=== PATIENT | female | born 1945 | race Caucasian/White ===

== ENCOUNTER 2018-10-20 07:18 | Outpatient (CLI) | payer MEDICARE, OTHER, SELFPAY ==
[2018-10-20] VITALS (8 sets, daily range): BP systolic 116–161; BP diastolic 54–85; PULSE 76–83; RESP 16; TEMP 36.2; O2SAT 96–100
--- NOTE | 2018-10-20 07:21 | DI.RAD.S_ITS ---
PROCEDURE: PAIN L/S TRANSFORAMINAL INJECT INDICATIONS: RADICULOPATHY FINDINGS: Fluoroscopic spot filming was performed to verify placement of spinal needles at the L5-S1 right sided facet region level, as labeled on the films. Appropriate location(s) of the needle tip(s) was confirmed by injection of iodinated contrast. IMPRESSION: Normal needle tip localization for right L5-S1 perineural transforaminal steroid injection. Dictated by: Pee Corbin M.D. on 10/20/2018 at 10:00 Approved by: Pee Corbin M.D. on 10/20/2018 at 10:01
[2018-10-20] MEDS: MIDAZOLAM 5 MG/5 ML VIAL IV (08:27)
[2018-10-20] MEDS: IOPAMIDOL 15 ML VIAL 3 ML INJ (08:35)
[2018-10-20] MEDS: methylPREDNISolone acetate 80 MG/ML VIAL INJ (08:35)
[2018-10-20] MEDS: DEXAMETHASONE 10 MG/ML VIAL 20 MG INJ (08:35)
[2018-10-20] MEDS: BUPIVACAINE 0.25% (PF) VIAL 2 ML INJ (08:35)
--- NOTE | 2018-10-20 08:38 | PC.NURSE ---
assisting pt off table and transporting to post proc area in stable condition
--- NOTE | 2018-10-20 08:45 | PM.PROC.1 ---
Procedures Date/Time Date of procedure: 10/20/18 Time of procedure: 08:47 General Procedure description: PREOP DIAGNOSIS 1. FORMAINAL STENOSIS WITH LE SYMPTOMS, POST OP DIAGNOSIS 1. FORMAINAL STENOSIS WITH LE SYMPTOMS, PROCEDURES 1.FLUOROSCOPICALLY GUIDED CONTRAST CONTROLLED TRANSFORAMINAL EPIDURAL STEROID INJECTION - RIGHT L5/S1 TFESI PHYSICIAN: Jian Moy DO INDICATIONS: Constance is referred by for treatment of Foraminal Stenosis with right LE Symptoms FINDINGS Foraminal Nerve Root Compression secondary to disc disease and facet hypertrophy DESCRIPTION OF PROCEDURE Following denial of allergy and review of potential side effects and complications, including, but not necessarily limited to, infection, allergic reaction, local tissue breakdown, stroke, temporary or permanent nerve injury, paralysis, and possible , the patient indicated that the patient understood and agreed to proceed. An informed consent document was signed by the patient, witnessed by a nurse, and placed in the patient's chart. Additionally, other treatment options including medications, modalities, and physical therapy were reviewed with the patient. After review of previous anaesthesic history and IV conscious sedation the patient was deemed safe to proceed with todays procedure with IV conscious sedation as ASA class II designation. Safety time-out was performed to confirm patient ID, procedure to be performed and site of procedure. IV sedation was accomplished with a combination 4mg of Versed was administered by the RN after DO order, titrated to patient comfort during the course of the procedure while the patient remained responsive to all verbal commands In the prone position following sterile prep and drape of the lumbar region, the right L5/S1 posterior neuroforamen was identified fluoroscopically. The skin was anesthetized via a 25-gauge 1.5-inch needle with 1% lidocaine solution. At this point, a 25-gauge 3.5-inch spinal needle was atraumatically introduced and advanced under fluoroscopic guidance through the posterior right L5/S1 neuroforamen to approximately the anterior aspect of the canal. Depth was confirmed on lateral view. Following negative aspiration, injection of approximately 1.5 cc of Isovue 200 under live fluoroscopy in the AP view confirmed excellent flow along the nerve root, into the epidural space without vascular or intrathecal uptake observed Radiological data, including multiple fluoroscopic views of the lumbosacral spine, reveal a spinal needle at the right L5/S1 posterior neuroforamen. Subsequent views show flow of contrast material flowing superiorly and inferiorly along the nerve root confirming epidural flow. Subsequently, a test dose of 1.5 cc of 1% lidocaine solution was administered and patient was observed for two minutes for signs or symptoms of complications, including abdominal pain, shortness of breath, bilateral upper or lower extremity weakness, nausea and vomiting, prior to steroid injection. At this point, a total of 3 cc or 20 mg of dexamethasone and 80mg Depo Medrol was injected without incident. The procedure tolerated the procedure well without signs or symptoms of complications prior to transfer to the recovery area continued monitoring without incident. The patient was then transferred to the recovery area where they were observed for an appropriate time after the injection. The patient reported a VAS score of 7 prior to the procedure and a post-procedure VAS of 0. Total Fluoroscopy Time: 20.9 seconds Total Conscious Sedation Time: 24min POST OP INSTRUCTIONS The patient was provided a Pain Log to continue to record their response to the target-specific procedure prior to follow-up visit with their referring physician. Additionally, specific post-injection care instructions and a contact number to our office were provided if concerns arise regarding possible complications associated with the procedure are suspected. Jian Moy DO Complications: none
--- NOTE | 2018-10-20 08:50 | PC.NURSE ---
mario w/c post procedure , is alert and able to transfer from w/c to chair with standby assist, and resuming monitoring from thai zuniga.
--- NOTE | 2018-10-20 08:54 | PC.NURSE ---
alert and awake, tolerating drinking water and eating cookies.
--- NOTE | 2018-10-20 09:05 | PC.NURSE ---
left leg slightly floppy, while sitting abl to extend and flex, unsteady when standing.
--- NOTE | 2018-10-20 09:40 | PC.NURSE ---
prescriptions faxed to [facility], [place]. valium and tramadol.
== END 2018-10-20 09:22 | disposition home or self-care (01) ==
LOC: RAD 07:20
PROVIDERS: Family Provider Family Medicine; PCP Family Medicine; Visit Provider Physical Medicine & Rehabilitation
DX: M48.061 Spinal stenosis, lumbar region without neurogenic claudication (principal); M48.07 Spinal stenosis, lumbosacral region; M51.16 Intervertebral disc disorders with radiculopathy, lumbar region; M51.17 Intervertebral disc disorders with radiculopathy, lumbosacral region; Z96.643 Presence of artificial hip joint, bilateral
CPT/HCPCS: 64483; 99152; J1040; J1100; J2250

== ENCOUNTER → 2018-10-22 16:18 | Outpatient (CLI) | payer MEDICARE, OTHER, SELFPAY ==
--- NOTE | 2018-10-22 16:20 | DI.RAD.S_ITS ---
PROCEDURE: XR HIP W PEL IF DONE RT 2V INDICATIONS: Low back/Hip pain TECHNIQUE: AP pelvis with lateral view(s) of the right hip(s). COMPARISON: None. FINDINGS: Bones: No fractures or dislocations. Pelvic ring appears intact. No suspicious bony lesions. Bilateral hip arthroplasties are present. Hardware appears intact without gross evidence of loosening or fracture. Degenerative narrowing is present at the pubic symphysis. Soft tissues: The visualized bowel gas pattern is normal. Calcifications are present within the pelvis most suggestive of uterine fibroids. IMPRESSION: Stable appearance of bilateral hip arthroplasties as above. Dictated by: Lizett Ghotra M.D. on 10/22/2018 at 16:46 Approved by: Lizett Ghotra M.D. on 10/22/2018 at 16:47
--- NOTE | 2018-10-22 16:20 | DI.RAD.S_ITS ---
PROCEDURE: XR LUMBAR SPINE MIN 4V INDICATIONS: Low back/Hip pain TECHNIQUE: 4 views of the lumbar spine were acquired. COMPARISON: [facility], SPINE LUMB MIN 4VW, 02/24/2017, 13:15. FINDINGS: Bones: 5 nonrib-bearing vertebrae are present. There is trace retrolisthesis of L1 on L2-L2 on L3. There is severe disc space narrowing throughout the lumbar spine most severe from L3-4 through L5-S1. Severe foraminal narrowing is present L4-5 and L5-S1, moderate L3-4. Multilevel anterior osteophytes are present most notable at T12-L1, L2 and L4. Oblique views are markedly limited. Bilateral hip arthroplasties are noted. No vertebral body compression fractures. No suspicious bony lesions. Soft tissues: Overlying bowel gas pattern is normal. No suspicious soft tissue calcifications. IMPRESSION: Multilevel degenerative changes most severe at L4-5 and L5-S1 as above. There has been minimal interval progression compared to prior exam. Dictated by: Lizett Ghotra M.D. on 10/22/2018 at 16:41 Approved by: Lizett Ghotra M.D. on 10/22/2018 at 16:43
== END ==
PROVIDERS: Family Provider Family Medicine; PCP Family Medicine; Visit Provider Physical Medicine & Rehabilitation
DX: M54.5 Low back pain (principal); M25.551 Pain in right hip; M47.816 Spondylosis without myelopathy or radiculopathy, lumbar region; M47.817 Spondylosis without myelopathy or radiculopathy, lumbosacral region; Z96.643 Presence of artificial hip joint, bilateral
CPT/HCPCS: 20552; 72110; 73502; 96372; 99213; J1885; J3301

== ENCOUNTER → 2018-11-02 06:02 | Outpatient (CLI) | payer MEDICARE, OTHER, SELFPAY ==
--- NOTE | 2018-11-02 06:05 | DI.MRI.S_ITS ---
PROCEDURE: MR LUMBAR SPINE WO CON INDICATIONS: Foraminal Stenosis with Right LE radiculopathy TECHNIQUE: Noncontrast sagittal T1 spin echo and T2 fast echo, sagittal STIR, axial T1 and T2 fast spin echo through the lumbar spine. In cases with scoliosis, additional coronal T2 fast spin echo may be performed. COMPARISON: [facility], MR, L-SPINE W&WO CONTRAST, 06/16/2012, 14:56. [facility], CR, XR LUMBAR SPINE MIN 4V, 10/22/2018, 16:23. [facility], MR, L-SPINE WITHOUT CONTRAST, 02/07/2016, 10:04. FINDINGS: Image quality: Excellent. Alignment and Curvature: There is mild levoscoliosis centered at L2-3 level. No spondylolisthesis. Bone Marrow: Marrow is of normal overall signal. No acute vertebral body compression fractures. Vertebral body heights are preserved. Decreased intervertebral disc space and degenerative endplate changes are noted throughout lumbar spine, progressed since the 2016 study. Spinal Cord: Conus medullaris terminates the L1 level. Visualized cord demonstrates normal signal and size. Paraspinous Soft Tissues: No paravertebral masses. L1-L2: Diffuse disc bulge and right lateral disc herniation with bilateral facet arthrosis is seen. Mild central canal stenosis and right-sided neural foramina narrowing is noted. Bulging disc likely contacting right L1 nerve root at this level. L2-L3: Broad-based disc bulge and right lateral disc herniation with bilateral facet arthrosis is seen causing mild central canal stenosis and right-sided neural foramina narrowing. Bulging disc likely contacting right L2 nerve root. L3-L4: Broad-based disc bulge and bilateral facet arthrosis is seen causing mild central canal stenosis and right worse than left bilateral neuroforaminal narrowing. Bulging disc likely contacting right L3 nerve root. L4-L5: Broad-based disc bulge and bilateral facet arthrosis is seen. There is evidence of prior right-sided laminectomy at this level with post surgical changes. No significant central canal stenosis. Mild bilateral neuroforaminal narrowing is seen. L5-S1: Diffuse disc bulge and bilateral facet arthrosis is seen with no significant central canal stenosis. Mild/moderate bilateral neuroforaminal narrowing is seen. IMPRESSION: 1. Prior laminectomy at L4-5 level. Mild levoscoliosis centered at L2-3 level. No acute compression fracture or traumatic spondylolisthesis. No marrow edema. 2. Degenerative disc bulge and bilateral facet arthrosis throughout lumbar spine causing mild central canal stenosis and right worse than left neuroforaminal narrowing as described in detail above. Finding is more prominent at L2-3 and L3-4 levels. Dictated by: Cornelius Esqueda M.D. on 11/02/2018 at 8:21 Approved by: Cornelius Esqueda M.D. on 11/02/2018 at 8:29
== END ==
PROVIDERS: Family Provider Family Medicine; PCP Family Medicine; Visit Provider Physical Medicine & Rehabilitation
DX: M51.16 Intervertebral disc disorders with radiculopathy, lumbar region (principal); M51.17 Intervertebral disc disorders with radiculopathy, lumbosacral region; M48.061 Spinal stenosis, lumbar region without neurogenic claudication; M48.07 Spinal stenosis, lumbosacral region; M47.27 Other spondylosis with radiculopathy, lumbosacral region; M47.26 Other spondylosis with radiculopathy, lumbar region; M41.86 Other forms of scoliosis, lumbar region; M99.83 Other biomechanical lesions of lumbar region
CPT/HCPCS: 72148

== ENCOUNTER → 2018-11-04 16:42 | Outpatient (CLI) | payer MEDICARE, OTHER, SELFPAY ==
--- NOTE | 2018-11-04 16:43 | DI.MRI.S_ITS ---
PROCEDURE: MR PELVIS WO CON INDICATIONS: RIGHT LEG PAIN TECHNIQUE: Noncontrast axial and coronal T1 spin echo and STIR through the lumbosacral plexus region. Optional contrast may be given, followed by axial and coronal T1 spin echo with fat saturation through the sacral plexus. COMPARISON: [facility], CR, SPINE LUMB MIN 4VW, 02/24/2017, 13:15. [facility], MR, L-SPINE WITHOUT CONTRAST, 02/07/2016, 10:04. [facility], MR, MR LUMBAR SPINE WO CON, 11/02/2018, 6:34. [facility], CR, XR HIP W PEL IF DONE RT 2V, 10/22/2018, 16:23. [facility], CR, XR LUMBAR SPINE MIN 4V, 10/22/2018, 16:23. FINDINGS: Image quality: Only mildly degraded by metal artifact from bilateral hip arthroplasties. Lumbosacral plexus: Superior to the piriformis muscles, the pre-plexal structures appear normal, including the lumbosacral trunk and S1 root. Just anterior to the piriformis muscles, the sacral plexus proper demonstrates normal morphology (lumbosacral trunk, S1 to S3 nerve roots). Inferior to the piriformis muscles, the sciatic nerves appear normal. Note is made of a small degree of edema within the iliac fossa bilaterally, scanned on the right and mild on the left. This does not appear associated with adjacent infection or neoplasm. Soft tissues: The piriformis muscles appear symmetric in size. No presacral masses. Rectum appears normal in caliber and wall thickness. No pathologic free pelvic fluid. No visualized adenopathy by size criteria. There is edema within the soft tissues adjacent to the right sacroiliac joint, and more prominent adjacent to the superior and inferior right obturator ring. Quality of visualization is somewhat limited by the presence of bilateral hip arthroplasties. Bones: Marrow is abnormal within the right sacral ala adjacent to the sacroiliac joint, with a vertically oriented pattern and morphology consistent with right sacral insufficiency fracture. This is the origin of the adjacent mild soft tissue edema. Additionally, at the middle third of the inferior obturator ring on the right and medially at the superior obturator ring on the right there are nondisplaced fractures, with associated relatively prominent soft tissue edema tracking into the abductor muscle group inferiorly, and immediately adjacent. IMPRESSION: 1. No underlying infection or neoplasm is found. 2. There is a vertically oriented nondisplaced right sacral insufficiency fracture with associated marrow edema and mild adjacent soft tissue swelling. No hematoma is found. 3. There are nondisplaced superior and inferior right obturator ring fractures with edema tracking predominantly inferiorly and to the abductor muscle group but also into the musculature immediately adjacent. No hematoma associated. 4. A mild degree of iliopsoas muscle edema is present greater on the left than the right, presumably related to muscular strain. Please correlate for recent trauma given the constellation of findings above. Dictated by: Pee Corbin M.D. on 11/05/2018 at 8:43 Approved by: Pee Corbin M.D. on 11/05/2018 at 8:59
== END ==
PROVIDERS: PCP Family Medicine; Visit Provider Physical Medicine & Rehabilitation
DX: M84.48XA Pathological fracture, other site, initial encounter for fracture (principal); M84.454A Pathological fracture, pelvis, initial encounter for fracture; M79.604 Pain in right leg; M54.17 Radiculopathy, lumbosacral region; M99.83 Other biomechanical lesions of lumbar region; M51.26 Other intervertebral disc displacement, lumbar region; Z96.643 Presence of artificial hip joint, bilateral
CPT/HCPCS: 72195; 99214

== ENCOUNTER 2019-05-05 07:58 | Outpatient (CLI) | payer MEDICARE, OTHER, SELFPAY ==
[2019-05-05] VITALS (8 sets, daily range): BP systolic 120–163; BP diastolic 63–96; PULSE 75–83; RESP 16; TEMP 36.6; O2SAT 96–100
--- NOTE | 2019-05-05 08:01 | DI.RAD.S_ITS ---
PROCEDURE: PAIN L INTERLAMINAR/CAUDAL INJ INDICATIONS: RADICULOPATHY FINDINGS: Fluoroscopic spot filming was performed to verify placement of spinal needles at the L5-S1 level(s), as labeled on the films. Appropriate location(s) of the needle tip(s) was confirmed by injection of iodinated contrast. IMPRESSION: Successful needle tip localization at L5-S1 or transplant or epidural steroid injection. Dictated by: Pee Corbin M.D. on 05/05/2019 at 10:07 Approved by: Pee Corbin M.D. on 05/05/2019 at 10:11
--- NOTE | 2019-05-05 08:52 | PM.PROC.1 ---
Procedures Date/Time Date of procedure: 05/05/19 Time of procedure: 09:21 General Procedure description: PROVIDER: Jian Moy DO Operative Note PREOP DIAGNOSIS 1. HNP WITH RADICULAR FEATURES, 2. MULTILEVEL CENTRAL STENOSIS, POST OP DIAGNOSIS 1. HNP WITH RADICULAR FEATURES, 2. MULTILEVEL CENTRAL STENOSIS, PROCEDURES 1. FLUORSCOPICALLY GUIDED CONTRAST CONTROLLED INTERLAMINAR EPIDURAL STEROID INJECTION - L5/S1 PHYSICIAN: Jian Moy DO INDICATIONS Constance is referred by Dr. Valero for treatment of Bilateral Foraminal Stenosis L>R LE symptoms. FINDINGS Multilevel Central Spinal Stenosis with Nerve Root Compression DESCRIPTION OF PROCEDURE Fluoroscopically guided, contrast-controlled L5/S1 translaminar epidural steroid injection. Following review of allergy and review of potential side effects and complications, including, but not necessarily limited to, infection, allergic reaction, local tissue breakdown, temporary as well as permanent nerve injury, paralysis, stroke and possible , the patient indicated that the patient understood and agreed to proceed. An informed consent document was signed by the patient, witnessed by a nurse, and placed in the patient's chart. Additionally, other treatment options including modalities, medications, and physical therapy were reviewed with the patient. After review of previous anaesthesic history and IV conscious sedation the patient was deemed safe to proceed with todays procedure with IV conscious sedation as ASA class II designation. Safety time-out was performed to confirm patient ID, procedure to be performed and site of procedure. IV sedation was accomplished with a combination of 2mg of Versed and 50mcg of Fentanyl administered by the RN after DO order, titrated to patient comfort during the course of the procedure while the patient remained responsive to all verbal commands. In the prone position, following sterile prep and drape of the lumbar region, the L5/S1 translaminar space was identified fluoroscopically. The skin was anesthetized via a 25-gauge, 1.5-inch needle with 1% lidocaine solution. At this point, a 22-gauge short bevel spinal needle was atraumatically introduced and advanced under fluoroscopic guidance into the region of the L5/S1 translaminar space. Depth was confirmed on lateral view. Radiological data, including multiple fluoroscopic views of the lumbar spine, reveal a spinal needle at the L5/S1 translaminar space. Lateral views then show placement of the needle in the epidural space. Subsequent views show contrast material flowing superiorly and inferiorly in the epidural space. No vascular or intrathecal uptake is observed. At this point, using loss of resistance technique with saline and air, the epidural space was entered. This was confirmed following negative aspiration with injection of approximately 1.5 cc of Isovue 200, showing excellent epidural flow without vascular or intrathecal uptake. At this point, 1 cc of 1% lidocaine solution combined with 3cc or 20mg of dexamethasone and 50mcg of Fentanyl was injected without incident. The patent tolerated the procedure without signs of symptoms of complications prior to transfer to the recovery area for further monitoring. The patient was then transferred to the recovery area where they were observed for an appropriate period of time after the injection. The patient reported a VAS score of 6 prior to the procedure and a post-procedure VAS of 0. Total Fluoroscopy Time: 11.8 seconds Total Conscious Sedation Time: 24min POST OP INSTRUCTIONS The patient was provided a Pain Log to continue to record their response to the target-specific procedure prior to follow-up visit with their referring physician. Additionally, specific post-injection care instructions and a contact number to our office were provided if concerns arise regarding possible complications associated with the procedure are suspected. Jian Moy DO
[2019-05-05] MEDS: fentaNYL 100 MCG/2 ML INJ 50 MCG IV (09:09)
[2019-05-05] MEDS: MIDAZOLAM 5 MG/5 ML VIAL IV (09:09)
[2019-05-05] MEDS: BUPIVACAINE 0.25% (PF) VIAL 2 ML INJ (09:12)
[2019-05-05] MEDS: BETAMETHASONE 30 MG/5 ML MDV 12 MG INJ (09:12)
[2019-05-05] MEDS: IOPAMIDOL 15 ML VIAL 3 ML INJ (09:12)
[2019-05-05] MEDS: DEXAMETHASONE 10 MG/ML VIAL 20 MG INJ (09:12)
--- NOTE | 2019-05-05 09:19 | PC.NURSE ---
Pt tolerated procedure well. Pt able to get off table with standby assist. Transferred pt via wheelchair to pre procedure room for continued monitoring with Amanda YA.
--- NOTE | 2019-05-05 09:29 | PC.NURSE ---
ACCEPTED CARE OF PT IN POST PROC AREA IN STABLE CONDITION
== END 2019-05-05 09:44 | disposition home or self-care (01) ==
PROVIDERS: Family Provider Family Medicine; PCP Family Medicine; Visit Provider Physical Medicine & Rehabilitation
DX: M51.26 Other intervertebral disc displacement, lumbar region (principal); M99.83 Other biomechanical lesions of lumbar region; M54.17 Radiculopathy, lumbosacral region
CPT/HCPCS: 62323; 99152; J0702; J1100; J2250; J3010

== ENCOUNTER 2019-07-05 09:27 | Outpatient (CLI) | payer MEDICARE, OTHER, SELFPAY ==
[2019-07-05] VITALS (8 sets, daily range): BP systolic 122–148; BP diastolic 52–82; PULSE 74–82; RESP 16–18; TEMP 36.6; O2SAT 95–99
--- NOTE | 2019-07-05 09:30 | DI.RAD.S_ITS ---
PROCEDURE: PAIN L/S TRANSFORAMINAL INJECT INDICATIONS: LUMBAR RIDICULOPATHY FINDINGS: Fluoroscopic spot filming was performed to verify placement of spinal needles at the L5-S1 level(s), as labeled on the films. Appropriate location(s) of the needle tip(s) was confirmed by injection of iodinated contrast. Dictated by: Roosevelt Whitaker M.D. on 07/05/2019 at 11:24 Approved by: Roosevelt Whitaker M.D. on 07/05/2019 at 11:26
[2019-07-05] MEDS: MIDAZOLAM 5 MG/5 ML VIAL IV (10:39)
[2019-07-05] MEDS: fentaNYL 100 MCG/2 ML INJ 50 MCG IV (10:40)
[2019-07-05] MEDS: BUPIVACAINE 0.25% (PF) VIAL 2 ML INJ (10:44)
[2019-07-05] MEDS: IOPAMIDOL 15 ML VIAL 3 ML INJ (10:45)
[2019-07-05] MEDS: BETAMETHASONE 30 MG/5 ML MDV 6 MG INJ (10:45)
[2019-07-05] MEDS: DEXAMETHASONE 10 MG/ML VIAL 20 MG INJ (10:45)
[2019-07-05] MEDS: LIDOCAINE 1% 20 ML 5 ML INJ (10:46)
--- NOTE | 2019-07-05 10:53 | PC.NURSE ---
ASSISTING PT OFF TABLE AND TRANSPORTING TO POST PROC AREA IN STABLE CONDITION
--- NOTE | 2019-07-05 11:02 | PM.PROC.1 ---
Procedures Date/Time Date of procedure: 07/05/19 Time of procedure: 11:02 General Procedure description: PREOP DIAGNOSIS 1. FORMAINAL STENOSIS WITH LE SYMPTOMS, POST OP DIAGNOSIS 1. FORMAINAL STENOSIS WITH LE SYMPTOMS, PROCEDURES 1.FLUOROSCOPICALLY GUIDED CONTRAST CONTROLLED TRANSFORAMINAL EPIDURAL STEROID INJECTION - RIGHT L5/S1 TFESI PHYSICIAN: Jian Moy DO INDICATIONS: Constance is referred by for treatment of Foraminal Stenosis with right LE Symptoms FINDINGS Foraminal Nerve Root Compression secondary to disc disease and facet hypertrophy DESCRIPTION OF PROCEDURE Following review of allergy and review of potential side effects and complications, including, but not necessarily limited to, infection, allergic reaction, local tissue breakdown, stroke, temporary or permanent nerve injury, paralysis, and possible , the patient indicated that the patient understood and agreed to proceed. An informed consent document was signed by the patient, witnessed by a nurse, and placed in the patient's chart. Additionally, other treatment options including medications, modalities, and physical therapy were reviewed with the patient. After review of previous anaesthesic history and IV conscious sedation the patient was deemed safe to proceed with todays procedure with IV conscious sedation as ASA class II designation. Safety time-out was performed to confirm patient ID, procedure to be performed and site of procedure. IV sedation was accomplished with a combination of 2mg of Versed and 50mcg of Fentanyl was administered by the RN after DO order, titrated to patient comfort during the course of the procedure while the patient remained responsive to all verbal commands In the prone position following sterile prep and drape of the lumbar region, the right L5/S1 posterior neuroforamen was identified fluoroscopically. The skin was anesthetized via a 25-gauge 1.5-inch needle with 1% lidocaine solution. At this point, a 25-gauge 5-inch spinal needle was atraumatically introduced and advanced under fluoroscopic guidance through the posterior right L5/S1 neuroforamen to approximately the anterior aspect of the canal. Depth was confirmed on lateral view. Following negative aspiration, injection of approximately 1.5 cc of Isovue 200 under live fluoroscopy in the AP view confirmed excellent flow along the nerve root, into the epidural space without vascular or intrathecal uptake observed Radiological data, including multiple fluoroscopic views of the lumbosacral spine, reveal a spinal needle at the right L5/S1 posterior neuroforamen. Subsequent views show flow of contrast material flowing superiorly and inferiorly along the nerve root confirming epidural flow. Subsequently, a test dose of 1.5 cc of 1% lidocaine solution was administered and patient was observed for two minutes for signs or symptoms of complications, including abdominal pain, shortness of breath, bilateral upper or lower extremity weakness, nausea and vomiting, prior to steroid injection. At this point, a total of 3cc or 20mg of dexamethasone and 6mg betamethasone was injected without incident. The procedure tolerated the procedure well without signs or symptoms of complications prior to transfer to the recovery area continued monitoring without incident. The patient was then transferred to the recovery area where they were observed for an appropriate time after the injection. The patient reported a VAS score of 7 prior to the procedure and a post-procedure VAS of 0. Total Fluoroscopy Time: 20.9 seconds Total Conscious Sedation Time: 24min POST OP INSTRUCTIONS The patient was provided a Pain Log to continue to record their response to the target-specific procedure prior to follow-up visit with their referring physician. Additionally, specific post-injection care instructions and a contact number to our office were provided if concerns arise regarding possible complications associated with the procedure are suspected. Jian Moy DO Complications: none
--- NOTE | 2019-07-05 11:28 | PC.NURSE ---
Post procedure note: Patient arrive for monitoring at 1100. Awake but slightly drowsy. VSS, O2 sat WNL on RA. No compaints of pain. 0/10 scale. Mild weakness to right leg when transfered from w/c to recliner. Denies any unsusual numbness or tingling. tolerating po without nausea. Discharge instructions reviewed with good understanding of patient and spouse. discharged to home wheelchair to car at 1125.
== END 2019-07-05 11:25 ==
LOC: RAD 09:29
PROVIDERS: Family Provider Family Medicine; PCP Family Medicine; Visit Provider Physical Medicine & Rehabilitation
DX: M48.07 Spinal stenosis, lumbosacral region (principal); M51.17 Intervertebral disc disorders with radiculopathy, lumbosacral region
CPT/HCPCS: 64483; 99152; J0702; J1100; J2250; J3010

== ENCOUNTER → 2020-04-21 10:14 | Outpatient (CLI) | payer MEDICARE, OTHER, SELFPAY ==
[2020-04-22 17:07] LABS: COVID19 Sendout Not Detected (Not Detect)
== END ==
PROVIDERS: Family Provider Family Medicine; PCP Family Medicine; Visit Provider Physician Assistant
DX: Z11.59 Encounter for screening for other viral diseases (principal)
CPT/HCPCS: 87635

== ENCOUNTER 2020-04-24 11:18 | Outpatient (CLI) | payer MEDICARE, OTHER, SELFPAY ==
[2020-04-24] VITALS (7 sets, daily range): BP systolic 137–179; BP diastolic 77–99; PULSE 77–86; RESP 14–17; TEMP 36.4; O2SAT 97–100
--- NOTE | 2020-04-24 11:19 | DI.RAD.S_ITS ---
PROCEDURE: PAIN L/S TRANSFORAMINAL INJECT INDICATIONS: SPONDYLOSIS COMPARISON: [facility], , PAIN L/S TRANSFORAMINAL INJECT, 07/05/2019, 10:41. FINDINGS: Fluoroscopic spot filming was performed to verify placement of spinal needles at the right L4-L5 neural foramen level(s), as labeled on the films. Appropriate location(s) of the needle tip(s) was confirmed by injection of iodinated contrast. IMPRESSION: Access needle at the right L4-L5 neural foramen. Dictated by: Opal Luna MD, PhD on 04/24/2020 at 13:40 Approved by: Opal Luna MD, PhD on 04/24/2020 at 13:41
--- NOTE | 2020-04-24 11:42 | PC.NURSE ---
Patient is A&O able to make needs known. Green pain log reviewed with post injection instructions. Has no questions or concerns at this time.
[2020-04-24] MEDS: MIDAZOLAM 5 MG/5 ML VIAL IV (11:55)
[2020-04-24] MEDS: fentaNYL 100 MCG/2 ML INJ 50 MCG IV (11:55)
[2020-04-24] MEDS: DEXAMETHASONE 10 MG/ML VIAL 20 MG INJ (12:04)
[2020-04-24] MEDS: BETAMETHASONE 30 MG/5 ML MDV 6 MG INJ (12:05)
[2020-04-24] MEDS: BUPIVACAINE 0.25% (PF) VIAL 2 ML INJ (12:05)
[2020-04-24] MEDS: IOPAMIDOL 15 ML VIAL 3 ML INJ (12:05)
--- NOTE | 2020-04-24 12:14 | P.PCN_ITS ---
Date/Time/Diagnoses Date of procedure: 04/24/20 Time of procedure: 12:14 Pre-procedure diagnosis: 1. FORAMINAL STENOSIS WITH LE SYMPTOMS Post-procedure diagnosis: same Procedure Notes Procedure: 1. FLUOROSCOPICALLY GUIDED CONTRAST CONTROLLED TRANSFORAMINAL EPIDURAL STEROID INJECTION - RIGHT L4/5 TFESI Indications: Constance is referred by for treatment of Foraminal Stenosis with Right LE Symptoms Physician: Jian Myo Total Fluoroscopy time (seconds): 14 Total sedation minutes: 15 Complications: none Procedure in detail & Post-procedure care: FINDINGS Foraminal Nerve Root Compression secondary to disc disease and facet hypertrophy DESCRIPTION OF PROCEDURE Following review of allergy and review of potential side effects and complications, including, but not necessarily limited to, infection, allergic reaction, local tissue breakdown, stroke, temporary or permanent nerve injury, paralysis, and possible , the patient indicated that the patient understood and agreed to proceed. An informed consent document was signed by the patient, witnessed by a nurse, and placed in the patient's chart. Additionally, other treatment options including medications, modalities, and physical therapy were reviewed with the patient. After review of previous anaesthesic history and IV conscious sedation the patient was deemed safe to proceed with today?s procedure with IV conscious sedation as ASA class II designation. Safety time-out was performed to confirm patient ID, procedure to be performed and site of procedure. IV sedation was accomplished with a combination of 2mg of Versed and 50mcg of Fentanyl was administered by the RN after DO order, titrated to patient comfort during the course of the procedure while the patient remained responsive to all verbal commands In the prone position following sterile prep and drape of the lumbar region, the Right L4/5 posterior neuroforamen was identified fluoroscopically. The skin was anesthetized via a 25-gauge 1.5-inch needle with 1% lidocaine solution. At this point, a 22-gauge 5-inch spinal needle was atraumatically introduced and advanced under fluoroscopic guidance through the posterior Right L4/5 n euroforamen to approximately the anterior aspect of the canal. Depth was confirmed on lateral view. Following negative aspiration, injection of approximately 1.5 cc of Isovue 200 under live fluoroscopy in the AP view confirmed excellent flow along the nerve root, into the epidural space without vascular or intrathecal uptake observed Radiological data, including multiple fluoroscopic views of the lumbosacral spine, reveal a spinal needle at the right L4/5 posterior neuroforamen. Subsequent views show flow of contrast material flowing superiorly and inferiorly along the nerve root confirming epidural flow. Subsequently, a test dose of 1.5 cc of 1% lidocaine solution was administered and patient was observed for two minutes for signs or symptoms of complications, including abdominal pain, shortness of breath, bilateral upper or lower extremity weakness, nausea and vomiting, prior to steroid injection. At this point, a total of 3cc or 20mg of dexamethasone and 6mg of betamethasone was injected without incident. The procedure tolerated the procedure well without signs or symptoms of complications prior to transfer to the recovery area continued monitoring without incident. The patient was then transferred to the recovery area where they were observed for an appropriate time after the injection. The patient reported a VAS score of 7 prior to the procedure and a post- procedure VAS of 0. POST OP INSTRUCTIONS The patient was provided a Pain Log to continue to record their response to the target-specific procedure prior to follow-up visit with their referring physician. Additionally, specific post-injection care instructions and a contact number to our office were provided if concerns arise regarding possible complications associated with the procedure are suspected.
--- NOTE | 2020-04-24 16:08 | PC.NURSE ---
Tolerated procedure well. Sedation administered by BHAKTI Wynn. All other meds given by Dr Moy. Vitals stable during and immediately post procedure. Report given to BHAKTI Armstrong for post procedure recovery.
== END 2020-04-24 12:40 | disposition home or self-care (01) ==
LOC: RAD 11:19
PROVIDERS: Family Provider Family Medicine; PCP Family Medicine; Referring Provider Family Medicine; Visit Provider Physical Medicine & Rehabilitation
DX: M48.061 Spinal stenosis, lumbar region without neurogenic claudication (principal); M51.16 Intervertebral disc disorders with radiculopathy, lumbar region
CPT/HCPCS: 64483; 99152; J0702; J1100; J2250; J3010

== ENCOUNTER → 2020-11-08 16:42 | Outpatient (CLI) | payer MEDICARE, OTHER, SELFPAY ==
[2020-11-08] MEDS: COVID-19 VACC #1, MRNA(MOD) 100 MCG/0.5 ML VIAL IM (16:55)
== END ==
PROVIDERS: Family Provider Family Medicine; PCP Family Medicine; Visit Provider Internal Medicine
DX: Z23 Encounter for immunization (principal)
CPT/HCPCS: 0011A; 91301

== ENCOUNTER → 2020-12-07 08:47 | Outpatient (CLI) | payer MEDICARE, OTHER, SELFPAY ==
[2020-12-07] MEDS: COVID-19 VACC #2, MRNA(MOD) 100 MCG/0.5 ML VIAL IM (08:56)
== END ==
PROVIDERS: Family Provider Family Medicine; PCP Family Medicine; Visit Provider Internal Medicine
DX: Z23 Encounter for immunization (principal)
CPT/HCPCS: 0012A; 91301

== ENCOUNTER 2021-07-18 08:52 | Emergency (ER) | payer MEDICARE, OTHER, SELFPAY ==
[2021-07-18 09:00] VITALS: BP 176/84; PULSE 83; RESP 15; TEMP 36.9; O2SAT 99; BMI 33.5
--- NOTE | 2021-07-18 09:04 | DI.RAD.S_ITS ---
PROCEDURE: XR HIP W PEL IF DONE LT 2V INDICATIONS: left hip out possibly,hx hip replacement TECHNIQUE: AP pelvis with AP and lateral views of the left hip. COMPARISON: [facility], CR, XR HIP W PEL IF DONE RT 2V, 10/22/2018, 16:23. FINDINGS: Bones: A left total hip arthroplasty is present. The femoral head component appears normally aligned with the acetabular component. No signs of hardware loosening. No acute perihardware fracture is seen. A right total hip arthroplasty is also seen in stable position. Chronic healed fractures of the right superior and inferior pubic rami are noted. Degenerative changes are seen in the included spine. Soft tissues: The visualized bowel gas pattern is normal. Nonspecific calcifications are seen projecting over the pelvis. IMPRESSION: Left hip arthroplasty demonstrates expected alignment. No acute osseous abnormality. If clinical suspicion and/or symptoms persist, additional imaging with repeat plain films, or advanced imaging (e.g. CT, MRI) may be helpful for further assessment. Dictated by: Buck Sevilla M.D. on 07/18/2021 at 9:32 Approved by: Buck Sevilla M.D. on 07/18/2021 at 9:37
--- NOTE | 2021-07-18 09:43 | ED.EXTPRO ---
HPI - Extremity Problem General Chief complaint: Extremity Problem,Nontraumatic Stated complaint: Artificial hip pain, can't walk Time Seen by Provider: 07/18/21 09:06 Source: patient Mode of arrival: Wheelchair Limitations: no limitations History of Present Illness HPI Narrative: Patient is a 76-year-old female. Has had multiple joint replacements in the past to include both of her hips. Approximately 1 week ago she states she was sitting at a counter with a friend for several hours. When she stood up she had pain in her left hip. She had a difficult time walking or moving her left hip. She had no knee pain. No ankle pain. She did not fall. She has had back pain in the past and did not have any back pain at the time. She laid down on the couch in after several hours she felt a ?pop ?and then the pain went completely away. Afterwards she was able to walk around and had no discomfort for the past week until last evening started to have the pain in her left buttock once again. She states that she has difficult time sleeping last night. It hurts when she stands on the leg. No fevers. Again no falls. Has not tried anything for the symptoms prior to arrival. Related Data Previous Rx's Medication Instructions Recorded nortriptyline 25 mg capsule See Rx Instructions .ROUTE 05/02/21 .COMPLEX #60 cap cyclobenzaprine 10 mg tablet 10 mg PO TID PRN #10 tab 07/18/21 hydrocodone 5 mg-acetaminophen 325 1 tab PO Q6H PRN #14 tab 07/18/21 mg tablet Allergies Allergy/AdvReac Type Severity Reaction Status Date / Time No Known Drug Allergies Allergy Verified 07/18/21 09:04 Review of Systems Gastrointestinal Gastrointestinal: Reports system reviewed and no additional complaints, except as documented Genitourinary Genitourinary: Reports system reviewed and no additional complaints, except as documented Musculoskeletal Musculoskeletal: Reports system reviewed and no additional complaints, except as documented and Reports as per HPI Integumentary/Breasts Skin/Breast: Reports system reviewed and no additional complaints, except as documented Neurologic Neurologic: Reports system reviewed and no additional complaints, except as documented Hematologic/Lymphatic On Anticoagulants: No Patient History Medical History (Updated 07/18/21 @ 10:15 by Herminio Kam DO) Aftercare following left shoulder joint replacement surgery Hip replacement planned Surgical History H/O left knee surgery Family History Mother Anxiety Father Diabetes mellitus Social History Smoking Status: Never smoker Smoking Status: Never smoker alcohol intake frequency: 0-2 drinks per day Substance Use Type: does not use Exam Initial Vital Signs Initial Vital Signs: Vital Signs Temperature 98.4 F 07/18/21 09:00 Pulse Rate 83 07/18/21 09:00 Respiratory Rate 15 07/18/21 09:00 Blood Pressure 176/84 H 07/18/21 09:00 Pulse Oximetry 99 07/18/21 09:00 Const General: cooperative, healthy appearing, comfortable and well developed Limitations: mental status not altered HENMT Head: normal to inspection Neck Neck: normal visual inspection Resp Effort & Inspection: normal respiratory effort Cardio Rate: regular rate GI Inspection: normal to inspection and non-distended Palpation: soft and No tender Back/Spine/Pelvis Thoracic/Lumbar Spine: No paraspinal tenderness and No lumbar spinal tenderness Skin Lesions: no lesions Rashes: no rashes Neuro General: patient alert, patient awake and patient oriented x3 Sensory Exam: no sensory deficits noted Extrem General: normal to inspection and capillary refill normal Other: Patient does have tenderness to palpation along the left buttocks. She is able to flex and extend at the ankle on at the knee without discomfort. Were able to flex at the hip and internally and externally rotate with no discomfort in the groin area but she does have discomfort in the left buttocks with external rotation and flexion. Psych Appearance: grossly normal and well kempt Course Orders Ordered: ED Orders 07/18/21 09:04 XR hip w pel if done LT 2V Stat Discontinued Medications Hydrocodone Bitart/Acetaminophen (Hydrocodone/Acet 5/325 Tablet) 1 tab PO NOW ONE Stop: 07/18/21 10:05 Vital Signs Vital signs: Vital Signs - 8 hr 07/18/21 09:00 07/18/21 09:53 Temperature 98.4 F Pulse Rate 83 75 Respiratory Rate 15 16 Blood Pressure 176/84 H 142/70 H Pulse Oximetry 99 100 MDM - Extremity (Nontraumatic) Imaging Data Extremity x-ray #1: Radiologist's Impression: [address] [place] [address] XRay Report Signed Patient: Constance Christensen MR#: [id number] : 1945 Acct:[id number] Age/Sex: 76 / F Date of Service: 07/18/21 Loc: ED Accession Number: [id number] ?? Procedure: XR hip w pel if done LT 2V Ordering Provider: Herminio Kam D.O. PROCEDURE:? XR HIP W PEL IF DONE LT 2V ? INDICATIONS:? left hip out possibly,hx hip replacement ? TECHNIQUE:? AP pelvis with AP and lateral views of the left hip. ? COMPARISON:? [facility], CR, XR HIP W PEL IF DONE RT 2V, 10/22/2018, 16:23. ? FINDINGS:? ? Bones:? A left total hip arthroplasty is present.? The femoral head component appears normally aligned with the acetabular component.? No signs of hardware loosening.? No acute perihardware fracture is seen.? A right total hip arthroplasty is also seen in stable position.? Chronic healed fractures of the right superior and inferior pubic rami are noted.? Degenerative changes are seen in the included spine. ? Soft tissues:? The visualized bowel gas pattern is normal.? Nonspecific calcifications are seen projecting over the pelvis. ? ? IMPRESSION:? Left hip arthroplasty demonstrates expected alignment.? No acute osseous abnormality.? If clinical suspicion and/or symptoms persist, additional imaging with repeat plain films, or advanced imaging (e.g. CT, MRI) may be helpful for further assessment. ? ? ? Dictated by: Buck Sevilla M.D. on 07/18/2021 at 9:32 ? ? Approved by: Buck Sevilla M.D. on 07/18/2021 at 9:37? MDM Narrative Medical decision making narrative: The x-ray shows no signs of fracture dislocation. Her left ankle and left knee are unremarkable. I feel that the pain is most likely coming from either sciatic pain or the musculature in her left buttocks and not from the hip joint itself. I did discuss this with her. The plan abuse the send her home with muscle relaxers and pain medication. Informed her that she can walk on her leg as tolerated. She was given return precautions and follow-up instructions. She expressed understanding and agreement. Discharge Plan Departure Patient Disposition: Home Clinical Impression: Muscle strain Instructions: DI for Gluteal Strain Activity Restrictions/Additional Instructions: The x-ray today did not show any signs of a fracture or dislocation. You can walk on your leg as tolerated. Continue with your anti-inflammatories that you take at night. Keep all of your medical appointments. Return to the emergency department for any new or worsening symptoms Prescriptions: New cyclobenzaprine 10 mg tablet 10 mg PO TID PRN (Reason: muscle spasm) Qty: 10 RF: 0 hydrocodone-acetaminophen 5-325 mg tablet 1 tab PO Q6H PRN (Reason: pain) Qty: 14 RF: 0 No Action nortriptyline 25 mg capsule See Rx Instructions .ROUTE .COMPLEX Qty: 60 RF: 2 Referrals: Jourdan Valero MD [Primary Care Provider] -
[2021-07-18 09:53] VITALS: BP 142/70; PULSE 75; RESP 16; O2SAT 100
[2021-07-18] MEDS: HYDROCODONE/ACET 5/325 TABLET 1 TAB PO (10:13)
[2021-07-18 10:38] VITALS: BP 141/81; PULSE 67; O2SAT 96
== END 2021-07-18 10:39 | disposition home or self-care (01) ==
PROVIDERS: Emergency Provider Emergency Medicine; Family Provider Family Medicine; PCP Family Medicine
DX: S39.012A Strain of muscle, fascia and tendon of lower back, initial encounter (principal)
CPT/HCPCS: 73502; 99283

== ENCOUNTER → 2021-07-27 11:40 | Outpatient (CLI) | payer MEDICARE, OTHER, SELFPAY ==
--- NOTE | 2021-07-27 11:42 | DI.RAD.S_ITS ---
PROCEDURE: XR LUMBAR SPINE MIN 4V INDICATIONS: lumbar radiculopathy TECHNIQUE: 5 views of the lumbar spine acquired. COMPARISON: [facility], CR, XR LUMBAR SPINE MIN 4V, 10/22/2018, 16:23. FINDINGS: Bones: 5 nonrib-bearing vertebrae are present. There is normal bony alignment. No vertebral body compression fractures. No suspicious bony lesions. Convex left thoracolumbar scoliosis present. Bilateral hip arthroplasty present. Calcified uterine fibroids remain unchanged. Disc space narrowing and degenerative endplate changes in the mid to lower thoracic spine with associated hypertrophic facet joints is also relatively stable from the prior exam. Oblique images unremarkable. Soft tissues: Overlying bowel gas pattern is normal. No suspicious soft tissue calcifications. Surgical clips present in the right upper quadrant IMPRESSION: Multilevel degenerative disc disease and arthropathy in the mid to lower lumbar spine stable Approved by: Gen Hebert M.D. on 07/27/2021 at 11:43
== END ==
PROVIDERS: Family Provider Family Medicine; PCP Family Medicine; Referring Provider Physical Medicine & Rehabilitation; Visit Provider Physical Medicine & Rehabilitation
DX: M47.26 Other spondylosis with radiculopathy, lumbar region (principal); M84.48XA Pathological fracture, other site, initial encounter for fracture; M51.16 Intervertebral disc disorders with radiculopathy, lumbar region; M99.83 Other biomechanical lesions of lumbar region
CPT/HCPCS: 72110

== ENCOUNTER → 2021-08-16 14:27 | Outpatient (CLI) | payer MEDICARE, OTHER, SELFPAY ==
--- NOTE | 2021-08-16 14:31 | DI.CT.S_ITS ---
PROCEDURE: CT UE RT WO CON INDICATIONS: Primary osteoarthritis, right shoulder TECHNIQUE: Noncontrast 1-1.5 mm thick sections acquired from the acromioclavicular joint to the inferior scapula, with coronal and sagittal reformatting. COMPARISON: [facility], CR, XR SHOULDER 2+ VIEWS RIGHT, 07/16/2021, 16:13. FINDINGS: Image quality: Excellent. Bones: Moderate to advanced degenerative changes of the acromioclavicular and glenohumeral articulations with joint space loss, osteophytosis, and fibrocystic change. Remodeling of the humeral head is also seen with adjacent intra-articular bodies. Soft tissues: Subacromial/subdeltoid fluid, which may reflect rotator cuff tear and/or bursitis. Calcific densities overlie the humeral head, compatible with calcific tendinopathy. IMPRESSION: Moderate to advanced degenerative changes of the right shoulder as detailed above. Dictated by: Primitivo Molina M.D. on 08/16/2021 at 15:22 Approved by: Primitivo Molina M.D. on 08/16/2021 at 15:27
== END ==
PROVIDERS: Family Provider Family Medicine; PCP Family Medicine; Referring Provider Orthopaedic Surgery; Visit Provider Orthopaedic Surgery
DX: M19.011 Primary osteoarthritis, right shoulder (principal)
CPT/HCPCS: 73200

== ENCOUNTER 2021-08-29 16:19 | Emergency (ER) | payer MEDICARE, OTHER, SELFPAY ==
[2021-08-29 16:56] VITALS: BP 155/80; PULSE 87; RESP 17; TEMP 37; O2SAT 100; BMI 34.6
--- NOTE | 2021-08-29 17:03 | DI.RAD.S_ITS ---
PROCEDURE: XR RIBS LT 2V INDICATIONS: left lower front rib TECHNIQUE: 2 views of the left ribs were acquired. COMPARISON: None. FINDINGS: Surgical changes and devices: None. Bones and chest wall: No fractures or dislocations. No suspicious bony lesions. Overlying soft tissues appear unremarkable. Left shoulder hemiarthroplasty noted. Degenerative changes present in the thoracic spine. Lungs and pleura: The visualized lung appears clear. No pleural effusions or pneumothorax are visible. IMPRESSION: No evidence of rib fracture or pneumothorax.. Incidental left shoulder hemiarthroplasty Approved by: Gen Hebert M.D. on 08/29/2021 at 16:54
--- NOTE | 2021-08-29 19:19 | ED.BACK ---
HPI - Back Pain/Injury <Enoc Melo PA-C - Last Filed: 08/29/21 19:40> General Chief Complaint: Back Pain/Injury Stated Complaint: lt sided rib pain Time Seen by Provider: 08/29/21 18:44 Source: patient History of Present Illness HPI Narrative: Patient is a 76-year-old female presenting to the emergency department today for an evaluation of left-sided rib pain. Patient states that she was [place] rating her [place] tree while leaning over the arm of a chair on 08/26/2021 when she suddenly felt a pop and intense pain throughout the left side of her ribs. Patient states that her pain has not improved since onset and notes that her pain is exacerbated with movement and deep breathing. Of note, patient denies following is result of the injury refuting her head or losing consciousness. No fever, chills, numbness or tingling in the bilateral upper extremities, chest pain, cough, shortness of breath, nausea, vomiting, diarrhea, dysuria, hematuria reported. No other concerns are voiced at this time. Patient has taken Aleve at home with minimal improvement in her condition. Related Data Previous Rx's Medication Instructions Recorded nortriptyline 25 mg capsule See Rx Instructions .ROUTE 05/02/21 .COMPLEX #60 cap cyclobenzaprine 10 mg tablet 10 mg PO TID PRN #10 tab 07/18/21 hydrocodone 5 mg-acetaminophen 325 1 tab PO Q6H PRN #14 tab 07/18/21 mg tablet Allergies Allergy/AdvReac Type Severity Reaction Status Date / Time No Known Drug Allergies Allergy Verified 07/18/21 09:04 Review of Systems <Enoc Melo PA-C - Last Filed: 08/29/21 19:40> Constitutional Constitutional: Denies chills, Denies fatigue, Denies fever(s), Denies frequent falls, Denies lethargy and Denies weakness Eyes Eyes: Denies loss of vision ENT Ears, Nose, Mouth, and Throat: Denies dizziness and Denies neck pain Cardiovascular Cardiovascular: Denies chest pain, Denies irregular heart rhythm, Denies lightheadedness, Denies palpitations, Denies dyspnea, Denies dyspnea on exertion and Denies orthopnea Respiratory Respiratory: Denies cough, Denies dyspnea, Denies dyspnea on exertion and Denies wheezing Gastrointestinal Gastrointestinal: Denies abdominal pain, Denies change in bowel habits, Denies diarrhea, Denies nausea and Denies vomiting Genitourinary Genitourinary: Denies hematuria, Denies flank pain, Denies urinary incontinence and Denies urinary urgency Musculoskeletal Musculoskeletal: Denies back pain, Denies muscle weakness, Denies neck pain, Denies numbness, Denies tingling and Reports other (Left-sided rib pain) Integumentary/Breasts Skin/Breast: Denies pruritus, Denies erythema, Denies rash and Denies wounds Neurologic Neurologic: Denies behavioral changes, Denies confusion, Denies dizziness, Denies frequent falls, Denies loss of vision, Denies numbness, Denies tingling and Denies weakness Psychiatric Psychiatric: Denies behavioral changes and Denies confusion Endocrine Endocrine: Denies fatigue and Denies palpitations Allergic/Immunologic Allergic/Immunologic: Denies wheezing Patient History <Enoc Melo PA-C - Last Filed: 08/29/21 19:40> Medical History Aftercare following left shoulder joint replacement surgery Hip replacement planned Surgical History H/O left knee surgery Family History Mother Anxiety Father Diabetes mellitus Social History Smoking Status: Never smoker Smoking Status: Never smoker alcohol intake frequency: 0-2 drinks per day Alcohol type: wine Substance Use Type: does not use Exam <Enoc Melo PA-C - Last Filed: 08/29/21 19:40> Narrative Exam Narrative: GENERAL: 76 year old patient appears stated age. Well-developed patient, in mild distress. HEAD: Atraumatic. Normocephalic. EYES: Pupils equal round and reactive. Extraocular motions intact. No scleral icterus. No injection or drainage. ENT: Nose without bleeding, purulent drainage. Throat without erythema, tonsillar hypertrophy or exudate. Airway patent. NECK: Trachea midline. Non tender CARDIOVASCULAR: Regular rate and rhythm without murmurs, gallops, or rubs. RESPIRATORY: Clear to auscultation. Breath sounds equal bilaterally. No wheezes, rales, or rhonchi. GASTROINTESTINAL: Abdomen soft, non-tender, nondistended. EXTREMITIES: No edema or joint tenderness. Tenderness to palpation appreciated over the left 9th and 10th ribs with no significant ecchymosis or swelling. BACK: Nontender without deformity or crepitance. No flank tenderness. NEURO: AOx3. SKIN: No rash or erythema of visible areas Initial Vital Signs Initial Vital Signs: Vital Signs Temperature 98.6 F 08/29/21 16:56 Pulse Rate 87 08/29/21 16:56 Respiratory Rate 17 08/29/21 16:56 Blood Pressure 155/80 H 08/29/21 16:56 Pulse Oximetry 100 08/29/21 16:56 <DO Jerardo Wheeler Last Filed: 08/29/21 23:44> Initial Vital Signs Initial Vital Signs: Vital Signs Temperature 98.6 F 08/29/21 16:56 Pulse Rate 87 08/29/21 16:56 Respiratory Rate 17 08/29/21 16:56 Blood Pressure 155/80 H 08/29/21 16:56 Pulse Oximetry 100 08/29/21 16:56 Course <Enoc Melo PA-C - Last Filed: 08/29/21 19:40> Course Course Narrative: X-ray of ribs obtained. Orders Ordered: ED Orders 08/29/21 17:03 XR ribs LT 2V Stat Vital Signs Vital signs: Vital Signs - 8 hr 08/29/21 16:56 08/29/21 19:34 Temperature 98.6 F Pulse Rate 87 74 Respiratory Rate 17 18 Blood Pressure 155/80 H 145/75 H Pulse Oximetry 100 98 <DO Jerardo Wheeler Last Filed: 08/29/21 23:44> Orders Ordered: ED Orders 08/29/21 17:03 XR ribs LT 2V Stat Vital Signs Vital signs: Vital Signs - 8 hr 08/29/21 16:56 08/29/21 19:34 Temperature 98.6 F Pulse Rate 87 74 Respiratory Rate 17 18 Blood Pressure 155/80 H 145/75 H Pulse Oximetry 100 98 MDM - Back Pain/Injury <WELLINGTON Choi Last Filed: 08/29/21 19:40> Imaging Data Ribs x-ray: Radiologist's Impression: PROCEDURE:? XR RIBS LT 2V ? INDICATIONS:? left lower front rib ? TECHNIQUE:? 2 views of the left ribs were acquired.? ? COMPARISON:? None. ? FINDINGS:? ? Surgical changes and devices:? None.? ? Bones and chest wall:? No fractures or dislocations.? No suspicious bony lesions.? Overlying soft tissues appear unremarkable.? Left shoulder hemiarthroplasty noted.? Degenerative changes present in the thoracic spine. ? Lungs and pleura:? The visualized lung appears clear.? No pleural effusions or pneumothorax are visible.? ? IMPRESSION:? No evidence of rib fracture or pneumothorax..? Incidental left shoulder hemiarthroplasty ? ? ? Approved by: Gen Hebert M.D. on 08/29/2021 at 16:54? MDM Narrative Medical decision making narrative: To consider fracture versus dislocation versus sprain versus strain. Overall physical examination, history, and imaging are reassuring. Discussed with patient results of her x-ray informed her that no acute bony abnormality was appreciated. Advise the patient to continue controlling pain with [id number] medications and icing the painful area. At this time patient feels comfortable being discharged home. Strict return precautions were discussed with the patient prior to discharge. Discharge Plan Departure Patient Disposition: Home Clinical Impression: Rib pain on left side Instructions: DI for Rib Contusion Activity Restrictions/Additional Instructions: *You have been diagnosed with left-sided rib pain *What to do: *Please continue to take your regular medications as directed. [ ] New medication prescriptions sent to your pharmacy: [ ] [ ] New medication written as a paper prescription [X] No new medications given *Please follow up with your primary care provider in 2-3 days, call for an appointment. Let them know you were seen in the Emergency Department and that we ask that you be seen in follow up. We will electronically transmit a record of today's note if your PCP is in our system *If you do not have a primary care provider please contact the [facility] Resource line at [phone]. They will ask some questions about your medical history and help get you set up with a doctor in the community. *Return to Emergency Department if you should have any new, worsening or concerning symptoms, such as fever greater than 101 F, shaking chills, worsening pain, shortness of breath, persistent vomiting, or other bothersome symptoms. Prescriptions: No Action nortriptyline 25 mg capsule See Rx Instructions .ROUTE .COMPLEX Qty: 60 2RF Dose Instruction: TAKE ONE OR TWO CAPSULES BY MOUTH DAILY Rx Instructions: TAKE ONE OR TWO CAPSULES BY MOUTH DAILY cyclobenzaprine 10 mg tablet 10 mg PO TID PRN (Reason: muscle spasm) Qty: 10 0RF hydrocodone-acetaminophen 5-325 mg tablet 1 tab PO Q6H PRN (Reason: pain) Qty: 14 0RF Referrals: Osman Talley MD [Primary Care Provider] - <Tracy Levine DO - Last Filed: 08/29/21 23:44> Cosign ED Attending Cosignature Attestation: I was immediately available in the department for consultation. Documentation has been reviewed. I agree with assessment and plan.
[2021-08-29 19:34] VITALS: BP 145/75; PULSE 74; RESP 18; O2SAT 98
== END 2021-08-29 19:35 | disposition home or self-care (01) ==
PROVIDERS: Emergency Provider Physician Assistant; Family Provider Family Medicine; PCP Family Medicine
DX: R07.81 Pleurodynia (principal)
CPT/HCPCS: 71100; 99281; 99283

== ENCOUNTER → 2021-09-23 07:03 | Outpatient (CLI) | payer MEDICARE, OTHER, SELFPAY ==
[2021-09-23 08:47] LABS: BUN Creatinine Ratio 27.8 (6-22); Blood Urea Nitrogen 20 mg/dL (7-17); Calcium 9.5 mg/dL (8.4-10.2); Carbon Dioxide 27 mmol/L (22-32); Chloride 107 mmol/L (98-107); Estimated Glomerular Filt Rate > 60.0 mL/min (>60); Glucose 99 mg/dL (80-110); HEMOLYSIS < 15 (0-50); Potassium 3.8 mmol/L (3.4-5.1); Sodium 139 mmol/L (137-145)
[2021-09-23 08:50] LABS: Add Manual Diff / Slide Review NO; Basophils Absolute Auto 100 /uL (0-100); Basophils Percent Auto 1.1 % (0-2); Eosinophils Absolute Auto 300 /uL (0-450); Eosinophils Percent Auto 4.6 % (2-4); Lymphocytes Absolute Auto 1600 /uL (1100-4500); Lymphocytes Percent Auto 24.2 % (25-40); Mean Corpuscular HGB Conc 31.6 % (30-36); Mean Corpuscular Hemoglobin 22.6 PG (26-34); Mean Corpuscular Volume 71.7 fL (80-100); Monocytes Absolute Auto 600 /uL (0-900); Monocytes Percent Auto 9.8 % (3-14); Neutrophils Absolute Auto 3900 /uL (1500-7000); Neutrophils Percent Auto 60.3 % (50-75); Platelet Count 345 X10^3/uL (150-400); Red Blood Cell Count 3.16 X10^6/uL (4.0-5.2); Red Cell Distribution Width 16.6 % (11.6-14.8); White Blood Cell Count 6.5 X10^3/uL (4.5-11.0)
[2021-09-23 09:01] LABS: Hematocrit 22.7 % (36-46); Hemoglobin 7.2 g/dL (12.0-16.0)
[2021-09-23 09:32] LABS: Hemoglobin A1C% w Est Avg Glu 5.3 % (4.0-6.0)
== END ==
PROVIDERS: Family Provider Family Medicine; PCP Family Medicine; Referring Provider Orthopaedic Surgery; Visit Provider Orthopaedic Surgery
DX: R73.9 Hyperglycemia, unspecified (principal); Z01.818 Encounter for other preprocedural examination; M25.511 Pain in right shoulder; Z01.812 Encounter for preprocedural laboratory examination
CPT/HCPCS: 36415; 80048; 83036; 85025; 93005; 93010

== ENCOUNTER 2021-09-27 07:46 | Observation (INO) | payer MEDICARE, OTHER, SELFPAY ==
[2021-09-27] VITALS (39 sets, daily range): BP systolic 116–161; BP diastolic 52–74; PULSE 67–92; RESP 16–29; TEMP 36.6–37.4; O2SAT 97–100; BMI 23.1; BMI 34.8
--- NOTE | 2021-09-27 08:05 | ED_ITS ---
HPI - Dizziness General Chief Complaint: Dizziness Stated Complaint: anemic, dizzy, internal bleeding Time Seen by Provider: 09/27/21 07:59 Source: patient Mode of arrival: Ambulatory Limitations: no limitations History of Present Illness HPI Narrative: This is a 76-year-old female who is sent from home for a screening labs for surgery showing anemia. Patient states she has been dizzy and felt lightheaded for the past 7-10 days. She has not been syncopal but has felt quite lightheaded. No chest pain, no shortness of breath. No nausea or vomiting. She denies any diarrhea constipation. She has noted her stools have been darker recently but she attributed this to her vitamins. No abdominal pain. No dys uria urgency frequency or hematuria. No inappropriate bleeding or bruising. No swelling in her extremities. She states she has not seen a physician for at least 2 or 3 years, she is to see Dr. Valero. Patient is on nortriptyline for nerve pain and gets injections for this. She was scheduled to have a right total shoulder but this was canceled secondary to her low hemoglobin on screening test. She is not on aspirin daily. She does take an Advil p.m. nightly but does not regularly consume NSAIDs during the daytime. Patient has had multiple orthopedic surgeries bilateral hip replacement, knee surgery, shoulder surgery, cholecystectomy. She denies allergies to medications. No tobacco, 1 alcoholic drink daily, no illicit. She has not had a colonoscopy. Related Data Home Medications Medication Instructions Recorded Confirmed nortriptyline 25 mg capsule 25 mg PO DAILY 09/27/21 09/27/21 Allergies Allergy/AdvReac Type Severity Reaction Status Date / Time No Known Drug Allergies Allergy Verified 09/27/21 08:11 Review of Systems Review of Systems ROS Unobtainable: All systems reviewed & are unremarkable except as noted in HPI and below Patient History Medical History Aftercare following left shoulder joint replacement surgery Hip replacement planned Surgical History H/O left knee surgery Family History Mother Anxiety Father Diabetes mellitus Social History household members: spouse Smoking Status: Never smoker Smoking Status: Never smoker alcohol intake frequency: 0-2 drinks per day Alcohol type: wine Substance Use Type: does not use Exam Narrative Exam Narrative: GENERAL: Alert and oriented x three, well-appearing female in mild distress, HEENT: Head normocephalic, atraumatic, EOMI, no conjunctival pallor, pupils reactive, face symmetric, moist mucous membranes NECK: Supple, full range of motion CARDIOVASCULAR: Regular rate and rhythm without murmurs, rubs or gallops. RESPIRATORY: Breath sounds equal bilaterally, no wheezes rales or rhonchi. ABDOMEN: Soft, nontender. Normoactive bowel sounds all 4 quadrants. No guarding or rebound, rigidity, no mass. On digital rectal exam patient has some small hemorrhoids which are soft and nontender, stool occult is positive with dark brown stool. : No CVA tenderness EXTREMITIES: Normal range of motion, no clubbing or edema. Neurovascularly intact NEUROLOGICAL: Cranial nerves II through XII grossly intact. Moving all extremities. Normal gait. SKIN: Warm, dry, no petechiae, no rashes or lesions. Initial Vital Signs Initial Vital Signs: Vital Signs Pulse Rate 90 09/27/21 07:53 Blood Pressure 158/74 H 09/27/21 07:53 Pulse Oximetry 98 09/27/21 07:53 Course Orders Ordered: Sodium Chloride (Normal Saline 0.9%) 1,000 mls @ 150 mls/hr IV CONT LEN Last Infusion: 09/27/21 11:38 Dose: 0 mls/hr Documented by: Infusion: 09/27/21 11:38 Dose: 0 mls/hr Documented by: Admin: 09/27/21 08:31 Dose: 150 mls/hr Documented by: MENDEL Lactated Ringer's (Lactated Ringers) 1,000 mls @ 100 mls/hr IV CONT LEN Last Infusion: 09/27/21 16:13 Dose: 100 mls/hr Documented by: Infusion: 09/27/21 13:45 Dose: 0 mls/hr Documented by: Admin: 09/27/21 11:39 Dose: 100 mls/hr Documented by: MENDEL Naloxone HCl (Naloxone 0.4 Mg/Ml Vial) 0.2 mg IV Q2MIN PRN PRN Reason: Opiate Reversal Nortriptyline HCl (Nortriptyline Hcl 25 Mg Capsule) 25 mg PO BEDTIME LEN Pantoprazole Sodium (Pantoprazole 40 Mg Vial) 40 mg IV BID LEN Discontinued Medications Heparin Sodium (Porcine) (Heparin 5,000 Unit/Ml Vial) 5,000 unit SUBCUT BID LEN Pantoprazole Sodium (Pantoprazole 40 Mg Vial) 80 mg IV NOW ONE Stop: 09/27/21 08:40 Last Admin: 09/27/21 09:04 Dose: 80 mg Documented by: MENDEL Polyethylene Glycol/Electrolytes ([id number]/Sod Sulf,Bicarb,Cl/Kcl 4,000 Ml Solution) 4,000 ml PO NOW ONE Stop: 09/27/21 11:18 Last Admin: 09/27/21 14:10 Dose: 4,000 ml Documented by: AUDRA Reevaluation(s) Reevaluation #1: Updated patient on today's findings. She is agreeable to infusion of packed red blood cells gives her consent. We discussed plan for observation, Protonix, transfusion of blood and possible scope in the morning. Consultations Consultation #1: Dr. Hernadez, general surgery accepts for admission. Plan for protonix, transfusion with goal for EGD tomorrow. Vital Signs Vital signs: Vital Signs - 8 hr 09/27/21 07:53 09/27/21 08:00 09/27/21 08:01 Temperature 98 F Pulse Rate 90 81 80 Respiratory Rate 20 21 Blood Pressure 158/74 H 158/74 H 139/63 Pulse Oximetry 98 98 98 09/27/21 08:15 09/27/21 08:30 09/27/21 08:31 Temperature Pulse Rate 79 80 80 Respiratory Rate 21 29 H 29 H Blood Pressure 161/69 H 143/63 H Pulse Oximetry 98 98 98 09/27/21 08:46 09/27/21 09:00 09/27/21 09:15 Temperature Pulse Rate 73 72 73 Respiratory Rate 24 17 24 Blood Pressure 125/58 L 125/59 L 117/52 L Pulse Oximetry 97 97 97 09/27/21 09:30 09/27/21 09:45 Temperature Pulse Rate 72 74 Respiratory Rate 18 18 Blood Pressure 123/59 L 125/63 Pulse Oximetry 97 97 MDM - Dizziness Lab Data Result diagrams: 09/27/21 08:00 09/27/21 08:00 Labs: Lab Results 09/27/21 09/27/21 09/27/21 Range/Units 08:00 08:00 08:00 WBC 7.1 (4.5-11.0) X10^3/uL RBC 3.55 L (4.0-5.2) X10^6/uL Hgb 7.9 L (12.0-16.0) g/dL Hct 25.3 L (36-46) % MCV 71.3 L (80-100) fL MCH 22.3 L (26-34) PG MCHC 31.2 (30-36) % RDW 16.6 H (11.6-14.8) % Plt Count 371 (150-400) X10^3/uL Neut % (Auto) 63.2 (50-75) % Lymph % (Auto) 23.5 L (25-40) % Harmon % (Auto) 10.1 (3-14) % Eos % (Auto) 2.4 (2-4) % Baso % (Auto) 0.8 (0-2) % Neut # (Auto) 4500 (5599-4201) /uL Lymph # (Auto) 1700 (7272-1703) /uL Harmon # (Auto) 700 (0-900) /uL Eos # (Auto) 200 (0-450) /uL Baso # (Auto) 100 (0-100) /uL PT 10.8 (10.1-12.7) SECONDS INR 1.0 (0.9-1.3) APTT 26 L (26.4-36.2) SECONDS Sodium 140 (137-145) mmol/L Potassium 3.9 (3.4-5.1) mmol/L Chloride 105 (98-107) mmol/L Carbon Dioxide 26 (22-32) mmol/L BUN 18 H (7-17) mg/dL Creatinine 0.72 (0.52-1.04) mg/dL Estimated GFR > 60.0 (>60) mL/min BUN/Creatinine Ratio 25.0 H (6-22) Glucose 107 (80-110) mg/dL Calcium 9.6 (8.4-10.2) mg/dL Total Bilirubin 0.4 (0.2-1.3) mg/dL AST 23 (14-36) IU/L ALT 21 (<35) IU/L Alkaline Phosphatase 93 (38-126) U/L Troponin I < 0.012 (0.01-0.034) ng/mL Total Protein 7.4 (6.3-8.2) g/dL Albumin 4.6 (3.5-5.0) g/dL Globulin 2.8 (1.7-4.1) g/dL Albumin/Globulin Ratio 1.6 (1.0-2.8) SARS-CoV-2 (PCR) (Negative) Blood Type Antibody Screen Crossmatch 09/27/21 09/27/21 Range/Units 08:00 08:04 WBC (4.5-11.0) X10^3/uL RBC (4.0-5.2) X10^6/uL Hgb (12.0-16.0) g/dL Hct (36-46) % MCV (80-100) fL MCH (26-34) PG MCHC (30-36) % RDW (11.6-14.8) % Plt Count (150-400) X10^3/uL Neut % (Auto) (50-75) % Lymph % (Auto) (25-40) % Harmon % (Auto) (3-14) % Eos % (Auto) (2-4) % Baso % (Auto) (0-2) % Neut # (Auto) (0677-2645) /uL Lymph # (Auto) (9394-2514) /uL Harmon # (Auto) (0-900) /uL Eos # (Auto) (0-450) /uL Baso # (Auto) (0-100) /uL PT (10.1-12.7) SECONDS INR (0.9-1.3) APTT (26.4-36.2) SECONDS Sodium (137-145) mmol/L Potassium (3.4-5.1) mmol/L Chloride (98-107) mmol/L Carbon Dioxide (22-32) mmol/L BUN (7-17) mg/dL Creatinine (0.52-1.04) mg/dL Estimated GFR (>60) mL/min BUN/Creatinine Ratio (6-22) Glucose (80-110) mg/dL Calcium (8.4-10.2) mg/dL Total Bilirubin (0.2-1.3) mg/dL AST (14-36) IU/L ALT (<35) IU/L Alkaline Phosphatase (38-126) U/L Troponin I (0.01-0.034) ng/mL Total Protein (6.3-8.2) g/dL Albumin (3.5-5.0) g/dL Globulin (1.7-4.1) g/dL Albumin/Globulin Ratio (1.0-2.8) SARS-CoV-2 (PCR) Negative (Negative) Blood Type O Positive Antibody Screen Negative Crossmatch See Detail Point of Care Testing Stool Occult Blood Positive Imaging Data Chest x-ray: Radiologist's Impression: [address] [address] XRay Report Signed Patient: Constance Christensen MR#: [id number] : 1945 Acct:[id number] Age/Sex: 76 / F Date of Service: 09/27/21 Loc: ED Accession Number: [id number] ?? Procedure: XR chest 1V Ordering Provider: Oumou Jacobson D.O. PROCEDURE:? XR CHEST 1V ? INDICATIONS:? dizzy, anemic ? TECHNIQUE:? One view of the chest was acquired.? ? COMPARISON:? [facility], , CHEST 2 VIEW, 06/21/2014, 16:04. ? FINDINGS:? ? Surgical changes and devices:? Left shoulder arthroplasty. ? Lungs and pleura:? Lungs are clear.? No pleural effusions or pneumothorax.? ? Mediastinum:? Mediastinal contours appear normal.? Heart size is enlarged. ? Bones and chest wall:? No suspicious bony lesions.? Overlying soft tissues appear unremarkable.? ? IMPRESSION:? No acute pulmonary process. ? ? Dictated by: Lizett Ghotra M.D. on 09/27/2021 at 8:19 ? ? Approved by: Lizett Ghotra M.D. on 09/27/2021 at 8:20?? ECG Data Attestation: I personally reviewed and interpreted this ECG as follows: Prior ECG tracings: available for review Interpretation: Sinus rhythm rate of 78 TX 186 QRS of 92 and QTC 428. Q-wave in 3 and AVF. V1 but no acute changes appreciated. Patient has prior from review from 09/23/2021. MDM Narrative Medical decision making narrative: 76-year-old female comes emergency department with outpatient labs showing anemia. Patient has been dizzy and lightheaded she has not had an actual syncopal episode but has had that sensation. She denies any other chest pain, shortness of breath or other changes she has noted her stools have been dark I suspect she has had a slow GI bleed. She has had at least week of symptoms of dizziness. She has not had prior labs in several years. She does take Advil p.m. nightly but no other regular NSAIDs. She does not take aspirin or other anticoagulants daily. She is only on nortriptyline daily. Spoke with general surgery who accepts for admission with Protonix started, plan for transfusion and possible scope tomorrow. Discharge Plan Departure Patient Disposition: Admitted as Observation Clinical Impression: GI bleed, Symptomatic anemia Admit Date/Time: 09/27/21 09:51 Admit Provider: Lois Hernadez
--- NOTE | 2021-09-27 08:07 | DI.RAD.S_ITS ---
PROCEDURE: XR CHEST 1V INDICATIONS: dizzy, anemic TECHNIQUE: One view of the chest was acquired. COMPARISON: [facility], , CHEST 2 VIEW, 06/21/2014, 16:04. FINDINGS: Surgical changes and devices: Left shoulder arthroplasty. Lungs and pleura: Lungs are clear. No pleural effusions or pneumothorax. Mediastinum: Mediastinal contours appear normal. Heart size is enlarged. Bones and chest wall: No suspicious bony lesions. Overlying soft tissues appear unremarkable. IMPRESSION: No acute pulmonary process. Dictated by: Lizett Ghotra M.D. on 09/27/2021 at 8:19 Approved by: Lizett Ghotra M.D. on 09/27/2021 at 8:20
[2021-09-27] MEDS: SODIUM CHLORIDE 0.9% 1,000 ML 150 ML IV (08:31)
[2021-09-27 08:59] LABS: Add Manual Diff / Slide Review NO; Basophils Absolute Auto 100 /uL (0-100); Basophils Percent Auto 0.8 % (0-2); Eosinophils Absolute Auto 200 /uL (0-450); Eosinophils Percent Auto 2.4 % (2-4); Hematocrit 25.3 % (36-46); Hemoglobin 7.9 g/dL (12.0-16.0); Lymphocytes Absolute Auto 1700 /uL (1100-4500); Lymphocytes Percent Auto 23.5 % (25-40); Mean Corpuscular HGB Conc 31.2 % (30-36); Mean Corpuscular Hemoglobin 22.3 PG (26-34); Mean Corpuscular Volume 71.3 fL (80-100); Monocytes Absolute Auto 700 /uL (0-900); Monocytes Percent Auto 10.1 % (3-14); Neutrophils Absolute Auto 4500 /uL (1500-7000); Neutrophils Percent Auto 63.2 % (50-75); Platelet Count 371 X10^3/uL (150-400); Red Blood Cell Count 3.55 X10^6/uL (4.0-5.2); Red Cell Distribution Width 16.6 % (11.6-14.8); White Blood Cell Count 7.1 X10^3/uL (4.5-11.0)
[2021-09-27] MEDS: PANTOPRAZOLE 40 MG VIAL 80 MG IV (09:04)
[2021-09-27 09:06] LABS: Prothrombin Time 10.8 SECONDS (10.1-12.7)
[2021-09-27 09:08] LABS: PTT Partial Thromboplastin Tim 26 SECONDS (26.4-36.2)
[2021-09-27 09:12] LABS: Alanine Aminotransferase 21 IU/L (<35); Albumin 4.6 g/dL (3.5-5.0); Albumin Globulin Ratio 1.6 (1.0-2.8); Alkaline Phosphatase 93 U/L (38-126); Aspartate Aminotransferase 23 IU/L (14-36); Bilirubin Total 0.4 mg/dL (0.2-1.3); Blood Urea Nitrogen 18 mg/dL (7-17); Calcium 9.6 mg/dL (8.4-10.2); Carbon Dioxide 26 mmol/L (22-32); Chloride 105 mmol/L (98-107); Estimated Glomerular Filt Rate > 60.0 mL/min (>60); Globulin 2.8 g/dL (1.7-4.1); Glucose 107 mg/dL (80-110); HEMOLYSIS < 15 (0-50); Potassium 3.9 mmol/L (3.4-5.1); Sodium 140 mmol/L (137-145); Total Protein 7.4 g/dL (6.3-8.2)
[2021-09-27 09:23] LABS: Troponin I < 0.012 ng/mL (0.01-0.034)
[2021-09-27 09:49] LABS: COVID19 - ADMIT (NP swab/PCR) Negative (Negative)
[2021-09-27] MEDS: LACTATED RINGERS 1,000 ML 100 ML IV (11:39)
--- NOTE | 2021-09-27 11:58 | PM.HP.1 ---
History of Present Illness History of Present Illness Date Patient Seen: 09/27/21 Time Patient Seen: 11:58 Chief complaint: anemic, dizzy, internal bleeding Narrative: Patient has had dizziness for some time. Was having a preop appointment with Dr. De Guzman when the lab values returned abnormal. Light headedness likely from anemia. No reported abdominal pain, dark stool or blood in stool. Has never had a colonoscopy. Patient History Medical History Aftercare following left shoulder joint replacement surgery Hip replacement planned Surgical History H/O left knee surgery Family & Social History Family History Mother Anxiety Father Diabetes mellitus Safety & Behavioral: Feels Safe in Current Yes Environment Been Physically Hurt or No Threatened By a Person Tobacco & Substance use: Smoking Status Never smoker alcohol intake frequency 0-2 drinks per day Substance Use Type does not use Meds Home Medications and Allergies Home Medications Medication Instructions Recorded Confirmed Type nortriptyline 25 mg capsule 25 mg PO DAILY 09/27/21 09/27/21 History Allergies Allergy/AdvReac Type Severity Reaction Status Date / Time No Known Drug Allergies Allergy Verified 09/27/21 08:11 Review of Systems Review of Systems Narrative: orthopedic issues ROS: Yes All systems reviewed with the patient and are negative except as otherwise documented Exam Vital Signs (past 8 hours): - 09/27/21 07:53 09/27/21 08:00 09/27/21 08:01 Temperature 98 F Pulse Rate 90 81 80 Respiratory Rate 20 21 Blood Pressure 158/74 H 158/74 H 139/63 Pulse Oximetry 98 98 98 09/27/21 08:15 09/27/21 08:30 09/27/21 08:31 Temperature Pulse Rate 79 80 80 Respiratory Rate 21 29 H 29 H Blood Pressure 161/69 H 143/63 H Pulse Oximetry 98 98 98 09/27/21 08:46 09/27/21 09:00 09/27/21 09:15 Temperature Pulse Rate 73 72 73 Respiratory Rate 24 17 24 Blood Pressure 125/58 L 125/59 L 117/52 L Pulse Oximetry 97 97 97 09/27/21 09:30 09/27/21 09:45 09/27/21 10:00 Temperature 98.3 F Pulse Rate 72 74 92 H Respiratory Rate 18 18 20 Blood Pressure 123/59 L 125/63 139/66 Pulse Oximetry 97 97 100 09/27/21 10:09 09/27/21 10:11 09/27/21 10:15 Temperature 98.3 F Pulse Rate 73 72 76 Respiratory Rate 19 18 18 Blood Pressure 139/66 139/66 144/63 H Pulse Oximetry 98 99 09/27/21 10:16 09/27/21 10:26 09/27/21 10:27 Temperature 98.3 F 98 F Pulse Rate 72 71 71 Respiratory Rate 18 18 18 Blood Pressure 144/63 H 139/65 139/65 Pulse Oximetry 100 09/27/21 10:30 09/27/21 10:45 09/27/21 11:00 Temperature 98 F Pulse Rate 70 70 70 Respiratory Rate 17 16 18 Blood Pressure 138/64 116/59 L Pulse Oximetry 99 99 98 09/27/21 11:15 09/27/21 11:30 09/27/21 11:39 Temperature 98.1 F 98.1 F Pulse Rate 69 69 69 Respiratory Rate 19 17 18 Blood Pressure 122/60 122/57 L Pulse Oximetry 98 99 09/27/21 11:40 09/27/21 11:45 09/27/21 11:54 Temperature 98.1 F 98.1 F Pulse Rate 68 71 67 Respiratory Rate 19 16 18 Blood Pressure 122/57 L 121/60 Pulse Oximetry 98 99 99 09/27/21 11:56 Temperature 98.1 F Pulse Rate 67 Respiratory Rate 18 Blood Pressure 121/60 Pulse Oximetry Oxygen Delivery Method Room Air Narrative Exam Narrative: occult positive stool in ED Const General: cooperative, healthy appearing and comfortable Nutritional Appearance: average body habitus [facility] Head: normocephalic and atraumatic Ears: hearing grossly normal bilaterally Eyes Sclera: sclerae normal Neck Neck: trachea midline Chest Chest: normal inspection of the chest Resp Effort & Inspection: normal respiratory effort and able to speak in complete sentences Cardio Rate: regular rate Rhythm: regular rhythm GI Inspection: normal to inspection Palpation: soft Skin General: no rashes or lesions noted and atrophy Neuro General: patient alert and patient oriented x3 Cognition: normal cognition Extrem General: full ROM Psych Appearance: grossly normal Judgment: judgment good Objective Labs Result Diagrams: 09/27/21 08:00 09/27/21 08:00 Labs: Laboratory Results - last 24 hr 09/27/21 09/27/21 09/27/21 08:00 08:00 08:00 WBC 7.1 RBC 3.55 L Hgb 7.9 L Hct 25.3 L MCV 71.3 L MCH 22.3 L MCHC 31.2 RDW 16.6 H Plt Count 371 Neut % (Auto) 63.2 Lymph % (Auto) 23.[address] [facility] % (Auto) 10.1 Eos % (Auto) 2.4 Baso % (Auto) 0.8 Neut # (Auto) 4500 Lymph # (Auto) 1700 [facility] # (Auto) 700 Eos # (Auto) 200 Baso # (Auto) 100 PT 10.8 INR 1.0 APTT 26 L Sodium 140 Potassium 3.9 Chloride 105 Carbon Dioxide 26 BUN 18 H Creatinine 0.72 Estimated GFR > 60.0 BUN/Creatinine Ratio 25.0 H Glucose 107 Calcium 9.6 Total Bilirubin 0.4 AST 23 ALT 21 Alkaline Phosphatase 93 Troponin I < 0.012 Total Protein 7.4 Albumin 4.6 Globulin 2.8 Albumin/Globulin Ratio 1.6 SARS-CoV-2 (PCR) Blood Type Antibody Screen Crossmatch 09/27/21 09/27/21 08:00 08:04 WBC RBC Hgb Hct MCV MCH MCHC RDW Plt Count Neut % (Auto) Lymph % (Auto) [facility] % (Auto) Eos % (Auto) Baso % (Auto) Neut # (Auto) Lymph # (Auto) [facility] # (Auto) Eos # (Auto) Baso # (Auto) PT INR APTT Sodium Potassium Chloride Carbon Dioxide BUN Creatinine Estimated GFR BUN/Creatinine Ratio Glucose Calcium Total Bilirubin AST ALT Alkaline Phosphatase Troponin I Total Protein Albumin Globulin Albumin/Globulin Ratio SARS-CoV-2 (PCR) Negative Blood Type O Positive Antibody Screen Negative Crossmatch See Detail Assessment & Plan Assessment & Plan narrative: Blood transfusion in ED Admit for observation Bowel prep today colonoscopy and EGD tomorrow COVID-19 COVID-19 status: Negative Time Spent With Patient Time with patient: 30 to 49 minutes with 50% spent counseling/coordinating care Critical Care time: I spent a total of [] minutes of critical care time on this patient's care today; this time is exclusive of procedural time.
[2021-09-27 12:21] LABS: Appearance Urine UA CLEAR; Bilirubin Urine UA NEGATIVE (NEGATIVE); Color Urine UA YELLOW; Glucose Urine UA NEGATIVE (Negative); Ketones Urine UA NEGATIVE (NEGATIVE); Leukocyte Esterase Urine UA TRACE (NEGATIVE); Nitrite Urine UA POSITIVE (Negative); Occult Blood Urine UA NEGATIVE (Negative); Protein Urine UA NEGATIVE (Negative); Urobilinogen Urine UA 0.2 E.U./dL (0.2); pH Urine UA 5.5 (4.5-8.0)
[2021-09-27 12:24] LABS: Bacteria Urine Many (>30); Culture Indicated Urine Specimen Cultured; RBC Urine None Seen (0-5/HPF); WBC Urine 1-5/HPF (0-5/HPF)
[2021-09-27] MEDS: PEG3350/SOD SULF,BICARB,CL/KCL 4,000 ML SOLUTION 4000 ML PO (14:10)
[2021-09-27] MEDS: NORTRIPTYLINE HCL 25 MG CAPSULE PO (22:03)
[2021-09-27] MEDS: HYDROCODONE/ACET 5/325 TABLET 2 TAB PO (22:03)
[2021-09-27] MEDS: PANTOPRAZOLE 40 MG VIAL IV (22:03)
[2021-09-28] VITALS (10 sets, daily range): BP systolic 114–147; BP diastolic 53–75; PULSE 77–88; RESP 13–77; TEMP 36.6–37; O2SAT 94–100
[2021-09-28] MEDS: LACTATED RINGERS 1,000 ML 100 ML IV (00:17)
[2021-09-28 05:05] LABS: Add Manual Diff / Slide Review NO; Basophils Absolute Auto 0 /uL (0-100); Basophils Percent Auto 0.8 % (0-2); Eosinophils Absolute Auto 200 /uL (0-450); Eosinophils Percent Auto 2.9 % (2-4); Hematocrit 24.3 % (36-46); Lymphocytes Absolute Auto 1400 /uL (1100-4500); Lymphocytes Percent Auto 25.4 % (25-40); Mean Corpuscular Hemoglobin 24.3 PG (26-34); Mean Corpuscular Volume 73.5 fL (80-100); Monocytes Absolute Auto 600 /uL (0-900); Monocytes Percent Auto 11.2 % (3-14); Neutrophils Absolute Auto 3300 /uL (1500-7000); Neutrophils Percent Auto 59.7 % (50-75); Platelet Count 277 X10^3/uL (150-400); Red Cell Distribution Width 18.9 % (11.6-14.8); White Blood Cell Count 5.6 X10^3/uL (4.5-11.0)
--- NOTE | 2021-09-28 10:37 | PM.PREOP ---
Pre-operative Note COVID-19 COVID-19 status: Negative Result date/Date tested (Pos, Neg/Pending): 09/27/21 Interval Note History & Physical reviewed/Exam performed by Physician: Yes Changes to H&P: No
[2021-09-28] MEDS: PANTOPRAZOLE 40 MG VIAL IV (11:12)
--- NOTE | 2021-09-28 13:01 | PM.OP.ENDO ---
Operative Date/Time/Diagnoses Date of procedure: 09/28/21 Time of procedure: 13:02 Pre-op diagnosis: GI bleed Post-op diagnosis: same Procedure & Clinicians Study performed: egd Same procedure as scheduled: Yes Indications: GI bleed Surgeon: Lois Hernadez Procedure Notes SCOAP/Timeout: done Procedure in detail: Preop diagnosis: GI bleed Postop diagnosis: GI bleed Operative procedure: EGD with MAC Findings: Mild gastritis. No ulcers or erosions. Normal duodenum. Normal esophagus. Moderate hiatal hernia Procedure: Patient placed in the lateral position. Scope inserted into the esophagus and advanced into the stomach. I insufflated and identified the pylorus and intubated into the duodenum. Insufflation and extraction of the scope including retroflex of the above findings. Impression: Mild gastritis. No ulcers or erosions. Moderate hiatal hernia Plan: Colonoscopy for GI bleed. Findings: hiatal hernia Specimen(s): none sent Complications: none
--- NOTE | 2021-09-28 13:06 | PM.OP.ENDO ---
Operative Date/Time/Diagnoses Date of procedure: 09/28/21 Time of procedure: 13:06 Pre-op diagnosis: GI bleed Post-op diagnosis: same Procedure & Clinicians Study performed: Colonoscopy with MAC Same procedure as scheduled: Yes Indications: GI bleed and severe anemia Surgeon: Lois Hernadez Procedure Notes SCOAP/Timeout: Done Procedure in detail: Preop diagnosis: GI bleed and severe anemia Postop diagnosis: Same Operative procedure: Colonoscopy with MAC Surgeon: Jody Hernadez MD Findings: Large diverticula in the ascending colon. No polyps or masses. Normal mucosa. Grade 2 hemorrhoids Procedure: Patient placed in a lateral position. Rectal exam performed showing decreased tone no masses. Colonoscope was inserted into the rectum and advanced to the ileocecal valve with minimal difficulty. Insufflation and extraction of the scope and the above findings. Impression: Large sigmoid diverticulosis, no evidence of active bleeding. No polyps, no masses. Grade 2 hemorrhoids Plan: Treat for iron deficiency anemia. PPI for 4 weeks minimum once a day. Discharge to home. Follow-up with Dr. De Guzman for rescheduling of surgery Findings: diverticulosis Specimen(s): none sent Complications: none Post-procedure Recommendations: Colonscopy in 10 years Follow up: as needed Disposition: PACU
--- NOTE | 2021-09-28 13:47 | PC.NURSE ---
received pt back from endo- no evidence of active bleeding vss, lungs clear and diminished- tolerating post-procedure diet well
--- NOTE | 2021-09-28 15:04 | CM.IDA ---
Addendum entered by SHIMA Parrish 09/28/21 15:13: ADD: Patient is indp at baseline. Family available to assist as needed. GABRIEL Original Note: Initial DCP Assessment Note Pt is a 76 yo female, resident of [facility] arrive w/ complaints of dizziness, anemia, taken for EGD by Dr Hernadez today; Dr Hernadez: Findings: Large diverticula in the ascending colon. No polyps or masses. Discharge Home PCP: Formerly Dr Valero, Dr Talley is out until December according to spouse Payer: [facility]/[employer] Reviewed chart, met w/spouse Ollie, patient was in the OR for EGD; introduced role. Spouse is very pleasant, in good spirits; states he and patient life w/their grandson and grand dtr w/their 12 yo and this family is supportive and available to assist as needed. Spouse denies needs from this [employer], appreciative of the visit. Expect that patient will DC home w/family w/no addtl. needs. 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 No History Provided By Significant Other,Medical Record Has Patient been admitted in last 30 No days? Prior Living Arrangements House Household Members spouse Independent with ADL's Yes Is patient alert and oriented? Yes Barriers to Discharge No Comment Home w/family Discharge Plan Home Transportation Arrangement Spouse Referrals Initiated None needed
--- NOTE | 2021-09-28 15:38 | PC.NURSE ---
PT DISCHARGED TO HOME FOLLOWING THIS RN RECEIVING DC ORDERS- AL QUESTIONS FROM HER AND HER SPOUSE WERE ANSWERED TO THEIR SATISFACTION AND IV REMOVED AND REVIEWED POST HOSPITALIZATION PLANS TO FOLLOW UP - FOR FURTHER EVIDENCE OF BLEEDING
== END 2021-09-28 15:42 | disposition home or self-care (01) ==
LOC: ED 09:45 → AC 09:52 → ICU 13:50
PROVIDERS: Admitting Provider Surgery; Emergency Provider Emergency Medicine; Family Provider Family Medicine; PCP Family Medicine; Referring Provider Emergency Medicine; Visit Provider Surgery
PROC: 0DJ08ZZ Inspection of Upper Intestinal Tract, Via Natural or Artificial Opening Endoscopic (ICD-10-PCS; CPT 43235; principal; 2021-09-28 10:00)
PROC: 0DJD8ZZ Inspection of Lower Intestinal Tract, Via Natural or Artificial Opening Endoscopic (ICD-10-PCS; CPT 45378; 2021-09-28 10:00)
DX: R42 Dizziness and giddiness (principal); D50.9 Iron deficiency anemia, unspecified; K57.30 Diverticulosis of large intestine without perforation or abscess without bleeding; K44.9 Diaphragmatic hernia without obstruction or gangrene; K29.60 Other gastritis without bleeding; K64.1 Second degree hemorrhoids; Z20.822 Contact with and (suspected) exposure to COVID-19
CPT/HCPCS: 43235; 45378; 36415; 36430; 71045; 80053; 81001; 81003; 82272; 82962; 84484; 85025; 85610; 85730; 86850; 86900; 86901; 87077; 87086; 87186; 87635; 87797; 93005; 93010; 94760; 96361; 96374; 96376; 99224; 99285; C9803; G0378; P9016; C9113; J2704

== ENCOUNTER → 2021-10-21 14:29 | Outpatient (CLI) | payer MEDICARE, OTHER, SELFPAY ==
[2021-09-27 14:20] VITALS: BMI 34.8
[2021-10-21 15:48] LABS: COVID19 -Nasal RAPID Negative (Negative)
== END ==
PROVIDERS: Family Provider Family Medicine; Visit Provider Physical Medicine & Rehabilitation
DX: M54.17 Radiculopathy, lumbosacral region (principal); M48.061 Spinal stenosis, lumbar region without neurogenic claudication; M51.26 Other intervertebral disc displacement, lumbar region; Z20.822 Contact with and (suspected) exposure to COVID-19
CPT/HCPCS: 87635; 99214

== ENCOUNTER 2021-10-22 12:21 | Outpatient (CLI) | payer MEDICARE, OTHER, SELFPAY ==
[2021-09-27 14:20] VITALS: BMI 34.8
[2021-10-22] VITALS (8 sets, daily range): BP systolic 129–174; BP diastolic 64–83; PULSE 80–87; RESP 12–24; TEMP 36.9; O2SAT 99–100
--- NOTE | 2021-10-22 12:23 | DI.RAD.S_ITS ---
PROCEDURE: PAIN L/S TRANSFORAMINAL INJECT INDICATIONS: SPONDYLOSIS COMPARISON: [facility], CR, XR LUMBAR SPINE MIN 4V, 07/27/2021, 11:48. FINDINGS: Fluoroscopic spot filming was performed to verify placement of spinal needles at the right L4-L5 level(s), as labeled on the films. Appropriate location(s) of the needle tip(s) was confirmed by injection of iodinated contrast. IMPRESSION: Fluoroscopy for pain management. Dictated by: Marc Dietrich M.D. on 10/22/2021 at 13:40 Approved by: Marc Dietrich M.D. on 10/22/2021 at 13:40
--- NOTE | 2021-10-22 12:59 | P.PCN_ITS ---
Date/Time/Diagnoses Date of procedure: 10/22/21 Time of procedure: 13:24 Pre-procedure diagnosis: 1. FORAMINAL STENOSIS WITH LE SYMPTOMS -This procedure is found to meet the Governor's proclamation 20-24.2 regarding non urgent procedures. This patient meets multiple criteria for the procedure including continuing or worsening of significant or severe pain, combined with further deterioration of the patient's condition or overall health as well as delay in treatment would be expected to result in less positive ultimate medical outcome. Therefore the decision to perform the procedure in an outpatient hospital setting is found to be in accordance with guidelines of the proclamation. Post-procedure diagnosis: same Procedure Notes Procedure: 1. FLUOROSCOPICALLY GUIDED CONTRAST CONTROLLED TRANSFORAMINAL EPIDURAL STEROID INJECTION - RIGHT L4/5 TFESI Indications: Constance is referred for treatment of Foraminal Stenosis with Right LE Symptoms Physician: Jian Moy Total Fluoroscopy time (seconds): 19 Total sedation minutes: 14 Complications: none Procedure in detail & Post-procedure care: FINDINGS Foraminal Nerve Root Compression secondary to disc disease and facet hypertrophy DESCRIPTION OF PROCEDURE Following review of allergy and review of potential side effects and complications, including, but not necessarily limited to, infection, allergic reaction, local tissue breakdown, stroke, temporary or permanent nerve injury, paralysis, and possible , the patient indicated that the patient understood and agreed to proceed. An informed consent document was signed by the patient, witnessed by a nurse, and placed in the patient's chart. Additionally, other treatment options including medications, modalities, and physical therapy were reviewed with the patient. After review of previous anaesthesic history and IV conscious sedation the patient was deemed safe to proceed with today?s procedure with IV conscious sedation as ASA class II designation. Safety time-out was performed to confirm patient ID, procedure to be performed and site of procedure. IV sedation was accomplished with a combination of 2mg of Versed and 50mcg of Fentanyl was administered by the RN after DO order, titrated to patient comfort during the course of the procedure while the patient remained responsive to all verbal commands In the prone position following sterile prep and drape of the lumbar region, the right L4/5 posterior neuroforamen was identified fluoroscopically. The skin was anesthetized via a 25-gauge 1.5-inch needle with 1% lidocaine solution. At this point, a 22-gauge 5-inch spinal needle was atraumatically introduced and advanced under fluoroscopic guidance through the posterior right L4/5 neuroforamen to approximately the anterior aspect of the canal. Depth was confirmed on lateral view. Following negative aspiration, injection of approximately 1.5cc of Isovue 200 under live fluoroscopy in the AP view confirmed excellent flow along the nerve root, into the epidural space without vascular or intrathecal uptake observed Radiological data, including multiple fluoroscopic views of the lumbosacral spine, reveal a spinal needle at the right L4/5 posterior neuroforamen. Subsequent views show flow of contrast material flowing superiorly and inferiorly along the nerve root confirming epidural flow. Subsequently, a test dose of 1.5 cc of 1% lidocaine solution was administered and patient was observed for two minutes for signs or symptoms of complications, including abdominal pain, shortness of breath, bilateral upper or lower extrem ity weakness, nausea and vomiting, prior to steroid injection. At this point, a total of 3cc or 20mg of dexamethasone and 6mg of betamethasone was injected without incident. The procedure tolerated the procedure well without signs or symptoms of complications prior to transfer to the recovery area continued monitoring without incident. The patient was then transferred to the recovery area where they were observed for an appropriate time after the injection. The patient reported a VAS score of 7 prior to the procedure and a post- procedure VAS of 0. POST OP INSTRUCTIONS The patient was provided a Pain Log to continue to record their response to the target-specific procedure prior to follow-up visit with their referring physician. Additionally, specific post-injection care instructions and a contact number to our office were provided if concerns arise regarding possible complications associated with the procedure are suspected.
[2021-10-22] MEDS: MIDAZOLAM 5 MG/5 ML VIAL IV (13:03)
[2021-10-22] MEDS: fentaNYL 100 MCG/2 ML INJ 50 MCG IV (13:03)
[2021-10-22] MEDS: BUPIVACAINE 0.25% (PF) VIAL 2 ML INJ (13:11)
[2021-10-22] MEDS: IOPAMIDOL 15 ML VIAL 3 ML INJ (13:11)
[2021-10-22] MEDS: DEXAMETHASONE 10 MG/ML VIAL 20 MG INJ (13:12)
[2021-10-22] MEDS: BETAMETHASONE 30 MG/5 ML MDV 6 MG INJ (13:12)
== END 2021-10-22 13:36 | disposition home or self-care (01) ==
PROVIDERS: Family Provider Family Medicine; Referring Provider Physical Medicine & Rehabilitation; Visit Provider Physical Medicine & Rehabilitation
DX: M48.061 Spinal stenosis, lumbar region without neurogenic claudication; M51.16 Intervertebral disc disorders with radiculopathy, lumbar region
CPT/HCPCS: 64483; 99152; J0702; J1100; J2250; J3010

== ENCOUNTER → 2021-11-05 06:51 | Outpatient (CLI) | payer MEDICARE, OTHER, SELFPAY ==
[2021-09-27 14:20] VITALS: BMI 34.8
[2021-11-05 08:41] LABS: Add Manual Diff / Slide Review NO; Basophils Absolute Auto 100 /uL (0-100); Basophils Percent Auto 0.7 % (0-2); Eosinophils Absolute Auto 300 /uL (0-450); Eosinophils Percent Auto 3.2 % (2-4); Hematocrit 37.4 % (36-46); Hemoglobin 11.8 g/dL (12.0-16.0); Lymphocytes Absolute Auto 3000 /uL (1100-4500); Lymphocytes Percent Auto 34.8 % (25-40); Mean Corpuscular HGB Conc 31.6 % (30-36); Mean Corpuscular Hemoglobin 24.7 PG (26-34); Mean Corpuscular Volume 78.1 fL (80-100); Monocytes Absolute Auto 700 /uL (0-900); Monocytes Percent Auto 8.3 % (3-14); Neutrophils Absolute Auto 4500 /uL (1500-7000); Platelet Count 322 X10^3/uL (150-400); Red Blood Cell Count 4.79 X10^6/uL (4.0-5.2); Red Cell Distribution Width 24.8 % (11.6-14.8); White Blood Cell Count 8.5 X10^3/uL (4.5-11.0)
[2021-11-05 09:05] LABS: Anisocytosis 2+
== END ==
PROVIDERS: Family Provider Family Medicine; Referring Provider Orthopaedic Surgery; Visit Provider Orthopaedic Surgery
DX: D50.9 Iron deficiency anemia, unspecified (principal); M25.511 Pain in right shoulder
CPT/HCPCS: 36415; 85025

== ENCOUNTER → 2021-11-26 09:55 | Outpatient (CLI) | payer MEDICARE, OTHER, SELFPAY ==
[2021-09-27 14:20] VITALS: BMI 34.8
[2021-11-26 12:26] LABS: COVID19 -Nasal RAPID Negative (Negative)
== END ==
PROVIDERS: Family Provider Family Medicine; Visit Provider Nurse Practitioner Family
DX: Z20.822 Contact with and (suspected) exposure to COVID-19 (principal)
CPT/HCPCS: 87635; C9803

== ENCOUNTER 2021-11-27 11:09 | Day surgery (SDC) | payer MEDICARE, OTHER, SELFPAY ==
[2021-09-27 14:20] VITALS: BMI 34.8
[2021-11-26 07:39] VITALS: BMI 33.3
[2021-11-27] VITALS (12 sets, daily range): BP systolic 121–153; BP diastolic 61–93; PULSE 74–97; RESP 14–20; TEMP 36.3–37.4; O2SAT 95–100; BMI 33.3
--- NOTE | 2021-11-27 06:00 | DI.RAD.S_ITS ---
PROCEDURE: XR SHOULDER RT MIN 2V INDICATIONS: prosthesis placement TECHNIQUE: 1 views of the shoulder were acquired. COMPARISON: [facility], CT, CT UE RT WO CON, 08/16/2021, 14:40. [facility], CR, SHOULDER MINIMUM 2 VIEW LEFT, 06/16/2012, 14:11. FINDINGS: Right shoulder reverse arthroplasty projects in the expected location. IMPRESSION: Expected appearance of the reversed right shoulder arthroplasty. Dictated by: Abiodun Price M.D. on 11/27/2021 at 17:11 Approved by: Abiodun Price M.D. on 11/27/2021 at 17:13
[2021-11-27] MEDS: CELECOXIB 200 MG CAPSULE PO ×2 (12:04)
[2021-11-27] MEDS: ACETAMINOPHEN 325 MG TABLET 975 MG PO (12:04)
[2021-11-27] MEDS: LACTATED RINGERS 1,000 ML 42 ML IV ×2 (12:04→16:12)
--- NOTE | 2021-11-27 13:38 | PM.PREOP ---
Pre-operative Note COVID-19 COVID-19 status: Negative Result date/Date tested (Pos, Neg/Pending): 11/26/21 Interval Note History & Physical reviewed/Exam performed by Physician: Yes Changes to H&P: No
--- NOTE | 2021-11-27 14:15 | SUR.PREOP ---
Block start time [1414] . Monitoring initiated and maintained throughout procedure. Oxygen and medications given by anesthesiologist Graham SANDERS. Patient remained stable throughout procedure, no adverse reactions noted. Block end time [1422].
--- NOTE | 2021-11-27 14:16 | SUR.OPER ---
Beach chair with Schlein shoulder positioner. Lower body on padded OR bed. Head in foam padded head cradle, secured with straps. Non-operative arm secured <90 degrees abduction. Pillow under knees. Safety belt at thigh. Cloth tape over blanket over lower legs. Gel pad under heels.
[2021-11-27] MEDS: CEFAZOLIN 2 GM/20 ML SYRINGE IV (14:51)
[2021-11-27] MEDS: TRANEXAMIC ACID 1,000 MG VIAL 1000 MG INJ ×2 (15:17→16:11)
[2021-11-27] MEDS: BUPIVACAINE 0.5% (PF) 30 ML, EPINEPHrine 0.15 MG INJ (15:23)
--- NOTE | 2021-11-27 16:32 | P.OP_ITS ---
Operative Date/Time/Diagnoses Date of procedure: 11/27/21 Time of procedure: 16:32 Pre-op diagnosis: Right shoulder osteoarthritis Post-op diagnosis: same Procedure & Clinicians Procedure: Right reverse total shoulder replacement Same procedure as scheduled: No (We went to reverse rather than anatomic total shoulder.) Indications: The patient has had progressively worsening right shoulder pain with radiographic changes consistent with arthritis. Non-operative management has failed and the patient has requested total shoulder replacement. The risks, benefits and alternatives to surgery were discussed with the patient prior to proceeding. Risks discussed included, but were not limited to, failure to relieve pain, stiffness, infection, nerve damage, deep venous thrombosis, pulmonary embolism, stroke, coma, heart attack, permanent paralysis and , as well as the potential need for eventual revision of the prosthetic. Surgeon: Vic De Guzman Ocean Fishing Guide: Mark Garcia Click Yes if Unassisted: No Anesthesia Type: General, Peripheral nerve block and Local Operative Notes Findings: Severe osteoarthritis with flattening and deformity of the humeral head with la rge osteophytes extending into the rotator cuff insertion with thinning and damage to the rotator cuff. This necessitated the transition to a reverse total shoulder rather than an anatomic total shoulder prosthesis. Closure Type: primary Specimen(s): none sent Prosthetic devices, grafts, tissues, transplants, or devices: Implants used in this procedure manufactured by the [employer] and included a 30 mm RSP glenoid base plate, 4 peripheral locking screws measuring 30, 22, 22 and 14 mm in length. There was a 10 mm small stature humeral stem used. There was a small shell 32 mm neutral socket liner and a 32 mm neutral glenoid head with retaining screw. Applied: implant(s) Estimated Blood Loss (mL): 200 Blood products transfused: none Procedure in detail: The patient was seen in the preoperative area where they identified the right shoulder as the operative site and this was marked with my initials. They received preoperative antibiotics and underwent the induction of an interscalene block. They were taken to the operating room and placed on the operating room table in a supine position with the underwent the induction of a general anesthetic. There were then repositioned in the ?beach chair? position using a dedicated positioner. All pressure points were well padded. The knees were slightly bent to prevent tension on the sciatic nerves. A agency development manager-out was performed The right arm was prepared from the fingertips to the base of the neck with ChloraPrep in the usual fashion and draped through sterile drapes. An approximately 15 cm incision was created starting at the clavicle just above the coracoid and going to the deltoid insertion. The deltopectoral interval was used to access the shoulder taking the vein to the lateral side. The vein was protected throughout the case. The upper 1 cm of the pectoralis major was released. The biceps tendon was identified and used as a guide to releasing the remaining subscapularis. The biceps itself was released. The subscapularis was tagged for possible later repair. The shoulder was dislocated and a proximal humeral osteotomy performed using an extramedullary guide. A proximal humeral pr otector was then placed. Retractors were placed access the glenoid. A 360 degree release was performed of the remaining subscapularis with care being taken to protect the axillary nerve. The soft tissues were removed circumferentially around the glenoid. The guide was used to drill the guide hole in the center of the inferior glenoid. The tap was placed and used as a guide for the reamer. The tap was then removed and the glenoid base plate inserted. The peripheral locking screws were then placed through the appropriate guide. A trial glenoid head was applied. We then turned our attention to the humerus. The proximal humeral protector was removed. Cylindrical reamers were used to size the canal. Broaching was then performed beginning with a small broach and working up until a line to line fit with the reamer was obtained. The guide for the proximal metaphyseal reamer was then applied and the metaphysis was reamed appropriately. The trial metaphyseal portion of the body was then applied to the broach. Trial reductions were performed and the size of the glenoid head and the cup were optimized. Stability was checked in maximal internal and external rotation and range of motion was checked to allow access to the top of the head, internal rotation to an excess of 50? in the ?scarecrow position? and the ability to reach the groin. The appropriate final prosthetic components were then opened. The glenoid head was impacted into position and checked for rotational and axial stability before placing the set screw. The humeral prosthetic was then impacted into position. The humeral cup was placed. The joint was relocated and irrigated. The subscapularis was not repaired as it would have restricted external rotation with the new increased offset. The deltopectoral interval was reapproximated with 0 Vicryl. Subcutaneous layer was closed with interrupted 3-0 Vicryl and skin with a running 3 0 V lock suture. Subcutaneous tissues were then infiltrated with 0.5% Marcaine for postoperative pain control. An Aquacel Ag dressing was applied and the patient's arm was placed in a sling. The patient was then transferred to the recovery room in good condition having tolerated the procedure well. Complications: none Post-operative Condition: stable Disposition: PACU Plan for aftercare: The patient will be maintained on a standard total shoulder replacement protocol with passive range of motion limited to 90 degrees forward flexion, 0 degrees external rotation at the side, 0 degrees abduction and internal rotation to the body. The patient will receive aspirin and sequential compression devices for DVT prophylaxis. The patient will be discharged home when safe for the home environment, likely tomorrow.
--- NOTE | 2021-11-27 16:52 | SUR.PHASEI ---
Pt with block administered. Right total shoulder completed. Pt with palpable strong pulses and able to move fingers on right hand without difficulty. Ranson and cap refill less than 2 seconds.
[2021-11-27] MEDS: IBUPROFEN 400 MG TABLET PO ×2 (19:00→21:08)
[2021-11-27] MEDS: LACTATED RINGERS 1,000 ML 100 ML IV (19:00)
--- NOTE | 2021-11-27 19:55 | PC.NURSE ---
Pt arrived to room 204 at 1735 A&Ox3, VSS, afebrile one RA. She denies pain to R shoulder, and tolerates po intake/general diet well. She reports numbness to R arm. R arm with limited movement and in sling. LR at 100ml/hr, she is able to get to BR and void this evening. Continuos monitoring, call light within reach.
[2021-11-27] MEDS: ASPIRIN EC 81 MG TABLET PO (21:08)
[2021-11-27] MEDS: ACETAMINOPHEN 325 MG TABLET 650 MG PO (21:08)
[2021-11-27] MEDS: DOCUSATE 100 MG CAPSULE PO (21:08)
[2021-11-28 05:57] VITALS: BP 111/54; PULSE 53; RESP 16; TEMP 37.3; O2SAT 100
[2021-11-28 06:21] LABS: Hematocrit 34.9 % (36-46); Hemoglobin 11.2 g/dL (12.0-16.0)
--- NOTE | 2021-11-28 07:19 | PM.DS.1 ---
History of Present Illness History of Present Illness Date Patient Seen: 11/28/21 Time Patient Seen: 07:19 Chief complaint: *OPB* Narrative: Operative Date/Time/Diagnoses Date of procedure: 11/27/21 Time of procedure: 16:32 Pre-op diagnosis: Right shoulder osteoarthritis Post-op diagnosis: same Procedure & Clinicians Procedure: Right reverse total shoulder replacement Same procedure as scheduled: No (We went to reverse rather than anatomic total shoulder.) Indications: The patient has had progressively worsening right shoulder pain with radiographic changes consistent with arthritis. Non-operative management has failed and the patient has requested total shoulder replacement. The risks, benefits and alternatives to surgery were discussed with the patient prior to proceeding. Risks discussed included, but were not limited to, failure to relieve pain, stiffness, infection, nerve damage, deep venous thrombosis, pulmonary embolism, stroke, coma, heart attack, permanent paralysis and , as well as the potential need for eventual revision of the prosthetic. Surgeon: Vic De Guzman Manager Application: Mark Garcia Click Yes if Unassisted: No Anesthesia Type: General, Peripheral nerve block and Local Operative Notes Findings: Severe osteoarthritis with flattening and deformity of the humeral head with large osteophytes extending into the rotator cuff insertion with thinning and damage to the rotator cuff.? This necessitated the transition to a reverse total shoulder rather than an anatomic total shoulder prosthesis. Closure Type: primary Specimen(s): none sent Prosthetic devices, grafts, tissues, transplants, or devices: Implants used in this procedure manufactured by the [employer] and included a 30 mm RSP glenoid base plate, 4 peripheral locking screws measuring 30, 22, 22 and 14 mm in length.? There was a 10 mm small stature humeral stem used.? There was a small shell 32 mm neutral socket liner and a 32 mm neutral glenoid head with retaining screw. Applied: implant(s) Estimated Blood Loss (mL): 200 Blood products transfused: none Discharge Providers Provider Date of admission: 11/27/2021 Discharge Date: 11/28/21 Consults: 11/27/21 17:18 Consult to Discharge Planning Routine Comment: Consult to Physical Therapy Evaluate & Treat Comment: Physician Instructions: PROM 90 FF, 0 ER, 0 abd, IR to 90, pendulums Discharge provider: Dolores Sandy PA-C Summary Hospital Course Discharge Diagnosis: s/p right reverse TSA Hospital Course: Ms Heisy's hospital course was unremarkable. On POD# 1 she was feeling well and wanted to go home. She was eating and voiding without difficulty. She was evaluated by PT prior to discharge. Exam Vital Signs (past 8 hours): - 11/28/21 05:57 Temperature 99.2 F Pulse Rate 53 L Respiratory Rate 16 Blood Pressure 111/54 L Pulse Oximetry 100 Oxygen Delivery Method Room Air Oxygen Flow Rate 0 Narrative Exam Narrative: 5/5 rehab services aide strength, hand intrinsics, wrist flexion and extension. Dressing CDI. Brisk capillary refill. Objective Labs Result Diagrams: 11/28/21 05:55 Labs: Laboratory Results - last 24 hr 11/28/21 05:55 Hgb 11.2 L Hct 34.9 L PFSH Medical History Aftercare following left shoulder joint replacement surgery Hip replacement planned HTN (hypertension) UTI (urinary tract infection) (09/27/21) Surgical History H/O left knee surgery History of lumbar surgery (02/17/12) History of total hip replacement History of total knee replacement History of total replacement of left shoulder joint Hx of cholecystectomy (~1979) Hx of colonoscopy (09/28/21) Hx of esophagogastroduodenoscopy (09/28/21) Hx of tonsillectomy S/P epidural steroid injection Family History Mother Anxiety Father Diabetes mellitus Social History household members: spouse Smoking Status: Never smoker alcohol intake: current Discharge Assessment & Plan Assessment and Plan Assessment: POD# 1 s/p RIGHT reverse total shoulder arthroplasty Plan of Treatment: Discharge home w/ multimodal pain management, ASA for VTE prophylaxis. Discharge Plan Discharge Plan Patient Disposition: Home Discharge orders & Medications Discharge Orders: Discharge (Order); Ordered 11/28/21 Ordered By: Jamila Purdy Prescriptions: New acetaminophen 500 mg capsule 500 mg PO Q4H MDD max 3000mg per day PRN (Reason: fever or pain) Qty: 90 0RF aspirin 81 mg Tablet,Delayed Release (Dr/Ec) 81 mg PO BID 42 Days Qty: 84 0RF Rx Instructions: prevent blood clots docusate sodium 100 mg Capsule 100 mg PO BID PRN (Reason: constipation) Qty: 30 0RF ibuprofen 400 mg Tablet 400 mg PO Q4HR MDD max 2400mg per day PRN (Reason: pain/inflammation) Qty: 90 0RF oxycodone 5 mg Tablet 5 mg PO Q3HR PRN (Reason: Pain, Moderate (4-6)) Qty: 42 0RF Continued nortriptyline 25 mg capsule 25 mg PO DAILY 0RF Rx Instructions: 1 to 2 capsules daily (25 mg to 50mg) multivitamin with folic acid [Tab-A-Domingo] 400 mcg Tablet 1 tab PO DAILY Qty: 30 0RF Follow up/Referrals: Vic De Guzman MD [Physician] - (10-14 days for a postop visit) Diet/Activity/Treatments Diet: Diet as Tolerated Activity: The patient will be maintained on a standard total shoulder replacement protocol with passive range of motion limited to 90 degrees forward flexion, 0 degrees external rotation at the side, 0 degrees abduction and internal rotation to the body. Other treatments: Medications: -Aspirin 81mg twice daily x2 weeks to prevent blood clots. -OTC Tylenol 500 mg 1 tablet every 4 hours as needed for pain/fever. Max 6 tablets per day. -Ibuprofen 400mg 1 tablet every 4 hours as needed for pain/inflammation. Max 2,400mg per day. -Oxycodone 5 mg take 1-2 tablets every 4 hours as needed for moderate-severe pain (narcotic pain medication). -As needed medications: -Ducolax and /or MiraLax as needed for constipation from narcotic pain medications. -Pepcid AC as needed for stomach upset (usually from aspirin or ibuprofen). Dressing/Wound care: -Keep Aquacell dressing in place until postoperative follow-up office visit. -Okay to shower. Keep wound out of direct water stream. No soaking or submerging until all the scabs fall off (approximately 6 weeks). -Please call the office if dressing becomes wet, soiled, or saturated. Activities: -Continue with sling. -Continue with home exercises as directed by your physical therapist. -Ice your incision as needed for pain/inflammation/swelling. Protect your skin with a folded pillowcase. Follow-up: -Follow-up with your surgeon or PA in the office in 10-14 days after surgery. -Follow-up with your surgeon 6 weeks postoperatively. Call the office if you have chest pain, shortness of breath, significant swelling that will not resolve with elevating, fever over 101?, significantly worsening pain. [facility]: [phone] Skin/Wound/Dressing Care Report to your healthcare provider any signs of infection, such as:: chills, fever, night sweats, unusual drainage and unusual redness Visit Report/Discharge Packet Instructions: DI for Shoulder Replacement Stand Alone Forms: Surgery Discharge Discharge Data Attending Provider: Vic De Guzman
--- NOTE | 2021-11-28 09:01 | CM.DANOTE ---
Case received, EMR reviewed and met with patient. Introduced self and role. Was able to obtain information regarding patient's baseline activity status prior to surgery. DCP assessment completed with information currently available. Patient is a 76 year old female who admitted yesterday morning to the care of the orthopedist team. PCP: Dr. Talley. Payer: confirmed: Medicare/[employer]. Patient came to the hospital via private vehicle for a surgical procedure. Patient had right reverse total shoulder replacement. Patient has history of osteoarthritis. Met with patient in her room. She is pleasant, alert and oriented. Patient resides here in [place] with her spouse, Ollie. She is independent at her baseline. Confirmed, her spouse, Ollie, will be able to assist her when she goes home. P: Patient is discharging home today once cleared by Josi Riggins RN/Instructional Material Director Discharge Planning/Care Management CM Discharge Assessment Start: 11/28/21 08:54 Freq: Status: Active Protocol: Document 11/28/21 08:54 (Rec: 11/28/21 09:01 [id number]) Discharge Planning Assessment Assigned Histotechnician Della Riggins RN/Instructional Material Director Advance Directives? No History Provided By Significant Other,Medical Record Prior Living Arrangements House Household Members spouse Type of transporation used prior to Drives own vehicle admit Independent with ADL's Yes Is patient alert and oriented? Yes Caregiver for Another No Barriers to Discharge No Comment Home w/family Discharge Plan Home Transportation Arrangement Spouse Referrals Initiated None needed Whiteboard Updated in Patient Room with Yes name and ext. # of Histotechnician Review Status In Process Next Review Type Continued Stay Review Pre-Anesthesia Assessment Start: 11/26/21 07:39 Freq: Status: Active Protocol: Document 11/26/21 07:39 CAB (Rec: 11/26/21 07:57 CAB [id number]) Pre-Anesthesia Assessment PAC Comment Pt declined phone assess, states no changes to medical/ medication history. She had no questions for upcoming surgery, chart review only. Patient Information Reviewed Via Chart Review Comment Recent labs @ [facility], COVID screen not identified Primary Care Provider Osman Talley Seen Specialist in Last 12 Months Yes Specialist Seen Postdoctoral Research Associate,Emergency, Orthopedist,Other Comment Pain-Dr. Moy Primary Language Citizen Of [place] Preferred Language Citizen Of [place] Head Of Loss Prevention Required No Height 5 ft 5 in Weight 200 lb Body Mass Index (BMI) 33.3 Barriers to Learning None Anesthesia Review Requested No Adult Protective Caseworker No alcohol intake current alcohol intake frequency 0-2 drinks per day Smoking Status Never smoker Substance Use Type does not use Pain Present Pain Reported Musculoskeletal Symptoms Joint Pain,Limited Range of Motion Patient is completely paralyzed or No completely immobile Mental Status Oriented to own ability Is patient on oxygen? No Hx Sleep Apnea No Currently Taking a Beta Jhon No Anti-Coagulant Therapy No Has a Orthotic And Prosthetic Technician No Cardiac Testing No Hx Pacemaker/ICD No Pacemaker Rep Required? No Urinary Catheter Present No Hx Urinary Self Catheterization No Diabetes No HgbA1C 5.3 Date 09/23/21 Patient No Lactating No Presence of External or Internal Medical Yes: Knee, hip, shoulder Devices prosthesis Received a COVID vaccine? Yes Marital Status Lives With spouse Patient Discharge Plan Description Return Home Do You Have Any Spiritual Beliefs That No May Affect Your HC Choices? Do You Have Any Cultural Practices That No May Affect Your HC Choices? Emergency Contact Name Ollie Christensen Emergency Contact Phone Number [phone], [phone] (home) Advance Directives? No
[2021-11-28] MEDS: ASPIRIN EC 81 MG TABLET PO (09:11)
[2021-11-28] MEDS: MULTIVITAMIN 1 TABLET 1 TAB PO (09:11)
[2021-11-28] MEDS: ACETAMINOPHEN 325 MG TABLET 650 MG PO (09:11)
[2021-11-28] MEDS: DOCUSATE 100 MG CAPSULE PO (09:11)
[2021-11-28] MEDS: IBUPROFEN 400 MG TABLET PO (09:12)
--- NOTE | 2021-11-28 09:20 | PT.IIE ---
Current Diagnoses Primary osteoarthritis, right shoulder (11/27/21) Surgery Performed Operation Date: 11/27/21 13:00 Actual Procedures p Total Shoulder Arthroplasty(Right) - Vic De Guzman MD Medical History (Last Reviewed 11/27/21 @ 12:13 by Darrius Maya RN) Aftercare following left shoulder joint replacement surgery Hip replacement planned HTN (hypertension) UTI (urinary tract infection) (09/27/21) Physical Therapy Inpatient Evaluation/Re-Eval M1 PT/OT-IP Prior Functional Status Start: 11/28/21 14:16 Freq: NEEDED Status: Active Protocol: Document 11/28/21 09:20 AB (Rec: 11/28/21 14:34 AB [id number]) Medical Review Prior Functional Status Medical History Reviewed Yes Communication able to make needs known Mobility and Gait pt staetd that she is independent with all mobilities and ambulation without AD Social History Household Members spouse Living Arrangements House Number of Floors (Floors) Two Floors Number of Stairs To Enter/Railing? 16 steps R rail to enter the house 8 steps L rail to get to bedroom level Home Environment Standard Height Toilet,Walk in Shower Home Equipment Front Wheel Walker,Straight Cane,Raised Toilet Seat Without Armrests,Shower Seat with Backrest,Hand Held Shower ,Grab Bars In Shower Additional Social History Comment pt lives with spouse and her grandson and family M2 PT-IP Current Condition Start: 11/28/21 14:16 Freq: NEEDED Status: Active Protocol: Document 11/28/21 09:20 AB (Rec: 11/28/21 14:34 AB [id number]) Physical Therapy Current Condition Current Condition Evaluation Date 11/28/21 Treatment Diagnosis s/p R TSA reverse; difficulty in walking Onset Date 11/27/21 M3 PT-IP Subjective Start: 11/28/21 14:16 Freq: NEEDED Status: Active Protocol: Document 11/28/21 09:20 AB (Rec: 11/28/21 14:34 AB [id number]) Subjective Physical Therapy Visit Type Type Initial Evaluation Visit Start Time 09:20 Visit Stop Time 10:25 Total Visit Minutes 65 Number of INSTALLMENT LOAN COLLECTOR Visits 0 Physical Therapy Visit Comments Patient Comments agreeable to do PT Therapy Pain Assessment Pain When Pain Assessed At Rest Pain Present Pain Present Pain Reported Location Right Shoulder Intensity 2 Scale Used Numeric (0 - 10) Pain Management Techniques Distraction,Modification of Treatment,Re-positioning, Timing of Activity with Medications M4 PT-IP Mobility and Gait Start: 11/28/21 14:16 Freq: NEEDED Status: Active Protocol: Document 11/28/21 09:20 AB (Rec: 11/28/21 14:34 AB [id number]) PT-Bed Mobility Assessment Supine to Sit Supine to Sit Minimal Assistance,Maximum Assistance Sit to Supine Sit to Supine Standby Assistance PT-Transfer Assessment Sit to and From Stand Sit to and from Stand Contact Guard Assistance,1 Person Assistance,Use of Upper Extremities Equipment Transfer Assistive Device None,Gait Belt,Straight Cane Orthotic/Prosthetic Devices or Brace: Yes Transfers Transfer Destination Chair Transfer Technique ambulated Transfer Ability Level of Assist Standby Assistance,Contact Guard Assistance,1 Person Assistance,Use of Upper Extremities Comments Mobility Comments pt asked PT regarding use of arnav for RUE. educated regarding shoulder precautions and safety. pt completed supine to sit towards R side of bed and required max A and max cues, sit to supine SBA. pt completed again and continued to require max A. asked pt if she will be able to go towards her L side and at first, stated not but then changed and stated that can move things and can go in/out L side of bed. completed supine to sit L side min A and cues. pt stated that spouse/ family will be able to assist her. pt sat on EOB SBA. educated on pendulum, elbow/wrist/hand exercises and sling management . pt attempted pendulum exercises but unable to relax RUE to safely complete pendulum but was able to assum body position. educated on hygiene care and dressing techniques. completed elbow/ wrist/hand exercises. assisted with sling and stated that spouse will be able to assist her with sling. pt stated that she had previous shoulder surgery and was able to manage. pt refused caregiver training and stated that she can tell her spouse on what to do. pt completed sit to stand CGA and ambulated in room SBA to CGA. agreed to do stairs. ambulated in the hallway SBA but occasional CGA needed with pt's increase L sided lean with slight LOB but with recovery. pt stated that she had nerve damage on RLE and that is why she leans on the L . pt completed up/down steps using L rail first SBA and then repeated again using R rail SBA. pt ambulated back to room without AD SBA to CGA. pt educated on safety and recommending use of SPC for outdoor mobility. educated pt on use of SPC and completed ambulation ~ 40 ft using SPC SBA. pt able to stand more upright and less lateral leaning to the L and steadier gait. pt stated that she can feel the difference in steadiness and agreed to use her cane. pt agreed to stay up on chair. positionedo n chair. call light and table place within reach. Gait Assessment Gait Gait Assistance Required: Standby Assistance,Contact Guard Assist Distance (Feet) 150 Able to Maintain Weight Bearing Status Yes During Gait Assistive Devices Assistive Device None,Gait Belt,Straight Cane Gait Deviations General Gait Pattern Antalgic,Decreased Stride Length,Decreased Feet Clearance,Lateral Trunk Lean Factors Limiting Gait Function Factors Limiting Gait Function Decreased Activity Tolerance, Decreased Strength,Limited Range of Motion,Pain,Poor Balance,Poor Safety Awareness Comments Gait Comments pls refer to mobility section for details Stair Climbing Assessment Evaluation Level of Assist On Stairs Standby Assistance Devices Stair Climbing Assistive Devices Left Railing,Right Railing Technique/Endurance Stair Climbing Direction Ascend and Descend Stair Climbing Technique Step to Step Number of Steps Climbed 3 Query Text: Stair Climbing Set # Repetitions (reps) 4 Comments Stair Climbing Comments pls refer to mobility section for details PT-Balance Assessment Sitting Balance and Reactions Static Sitting Balance Ability Good Dynamic Sitting Balance Ability Good Standing Balance and Reactions Static Standing Balance Ability Fair Dynamic Standing Balance Ability Fair Device Used SPC M5 PT-IP Objective Assessments Start: 11/28/21 14:16 Freq: NEEDED Status: Active Protocol: Document 11/28/21 09:20 AB (Rec: 11/28/21 14:34 AB [id number]) Orientation Orientation/Cognition Level of Alertness Alert Orientation Name,Age,Birthday,Month,Date, Year,Day of Week,Place, Situation Language Function Ability No Deficits Noted Safety Awareness Decreased Safety Awareness Memory Description Short Term Impaired Gross Range of Motion Lower Extremity ROM Assessment Within Functional Limits Strength Lower Extremity Strength Hip 4-/5 Knee 4-/5 Sensation Assessment Sensation Gross Sensation WNL Muscle Tone Muscle Tone WNL Yes M6 PT-IP Treatment Start: 11/28/21 14:16 Freq: NEEDED Status: Active Protocol: Document 11/28/21 09:20 AB (Rec: 11/28/21 14:34 AB [id number]) Physical Therapy Treatment Education Education Provided Precautions,Weight Bearing Status,Post-Op Packet,Safety M7 PT-IP Assessment and Plan Start: 11/28/21 14:16 Freq: NEEDED Status: Active Protocol: Document 11/28/21 09:20 AB (Rec: 11/28/21 14:34 AB [id number]) PT Summary Assessment and Plan Potential Rehabilitation Potential Good Status of Condition at Evaluation Stable Summary Impairments Pain,ROM,Strength,Balance, Coordination,Sensation,Tone, Cognition,Bed Mobility, Transfers,Gait,Activity Tolerance Assessment Summary pt requiring SBA to CGA with mobility and will have her family to assist her at home. pt refused caregiver training and stated that she can tell her spouse on what to do. stated that she had previous shoulder surgery and able to manage before. pt may go home when medically stable. Goals Bed Mobility Goal Independent Transfer Goal Independent,Cane Gait Goal Independent,Cane Gait Distance 300 Other Goals improve ambulation without AD independent 300 ft up/down 8 steps L rail mod I up/down 16 steps R rail mod I Days to Meet Goals 5 Frequency of Treatment Frequency Of Treatment Twice a Day Treatment Plan Physical Therapy Treatment Plan Bed Mobility Training,Transfer Training,Gait Training, Therapeutic Exercise,Balance Retraining,Post Op Education, Discharge Planning,Hot or Cold Pack,Neuromuscular Re-ed, Coordination Retraining,Manual Therapy Precautions Shoulder Precautions Sling,PROM,Internal Rotation to Body,No External Rotation, No Abduction,Forward Flexion to 90 degrees,Pendulums Weight Bearing Status Weight Bearing Status Non-Weight Bearing Allowed Weight Bearing Amount (enter % RUE NWB or #) (%) Recommendations To Nursing Amount of Assist Needed 1 Person Assist Discharge Recommendations PT Discharge Recommendations Home with Assistance, Outpatient PT Transportation Needs at Discharge Private Vehicle
--- NOTE | 2021-11-28 11:56 | PC.NURSE ---
Pt is pleasant A&Ox3, VSS, afebrile on RA. She denies complaints of pain, stating a very dull ache at 2/10 this a.m. She is tolerating good po intake well w/o n/v and getting up with SBA to bathroom. MD at bedside clearing her for discharge home after working with PT this a.m. Pt is cleared from PT this a.m. and verbalizes understanding of activity restrictions with her right shoulder. She denies numbness and tingling in her R arm and fingers and has +CMS to fingers. She verbalizes understanding of activity, site , medications, s/sx of infection/blood clots, and understanding of follow up orth appointment.She is escorted via wheel chair to private vehicle with her with all of her belongings at 1110 a.m.
== END 2021-11-28 11:10 | disposition home or self-care (01) ==
LOC: OR 11:11 → AC 11:11
PROVIDERS: Family Provider Family Medicine; Referring Provider Orthopaedic Surgery; Visit Provider Orthopaedic Surgery
PROC: 0RQJ0ZZ Repair Right Shoulder Joint, Open Approach (ICD-10-PCS; CPT 23472; principal; 2021-11-27 13:00)
DX: M19.011 Primary osteoarthritis, right shoulder (principal); I10 Essential (primary) hypertension; I25.10 Atherosclerotic heart disease of native coronary artery without angina pectoris
CPT/HCPCS: 23472; 36415; 64450; 73030; 85014; 85018; 97161; 97530; C1776; J0171; J0690; J1100; J2250; J2405; J2704; J3010

== ENCOUNTER → 2022-01-27 08:40 | Outpatient (CLI) | payer MEDICARE, OTHER, SELFPAY ==
[2021-11-27 18:50] VITALS: BMI 33.3
[2022-01-27 09:05] LABS: COVID19 -Nasal RAPID Negative (Negative)
== END ==
PROVIDERS: Family Provider Family Medicine; Visit Provider Physical Medicine & Rehabilitation
DX: Z20.822 Contact with and (suspected) exposure to COVID-19 (principal)
CPT/HCPCS: 87635; C9803

== ENCOUNTER 2022-01-28 10:10 | Outpatient (CLI) | payer MEDICARE, OTHER, SELFPAY ==
[2021-11-27 18:50] VITALS: BMI 33.3
[2022-01-28] VITALS (9 sets, daily range): BP systolic 145–182; BP diastolic 66–87; PULSE 83–92; RESP 16–21; O2SAT 97–100
--- NOTE | 2022-01-28 10:13 | DI.RAD.S_ITS ---
PROCEDURE: PAIN L/S TRANSFORAMINAL INJECT INDICATIONS: SPONDYLOSIS COMPARISON: None. FINDINGS: Fluoroscopic spot filming was performed to verify placement of spinal needles at the right L4-L5 neural neural foraminal level(s), as labeled on the films. Appropriate location(s) of the needle tip(s) was confirmed by injection of iodinated contrast. IMPRESSION: Access needle tip at the right L4-L5 neural foramen for transforaminal epidural steroid injection. Dictated by: Opal Luna MD, PhD on 01/28/2022 at 14:08 Approved by: Opal Luna MD, PhD on 01/28/2022 at 14:08
[2022-01-28] MEDS: MIDAZOLAM 2 MG/2 ML VIAL IV (11:17)
[2022-01-28] MEDS: IOPAMIDOL 15 ML VIAL 3 ML INJ (11:21)
[2022-01-28] MEDS: BUPIVACAINE 0.25% (PF) VIAL 2 ML INJ (11:21)
[2022-01-28] MEDS: BETAMETHASONE 30 MG/5 ML MDV 6 MG INJ (11:21)
[2022-01-28] MEDS: DEXAMETHASONE 10 MG/ML VIAL 20 MG INJ (11:22)
--- NOTE | 2022-01-28 11:39 | P.PCN_ITS ---
Date/Time/Diagnoses Date of procedure: 01/28/22 Time of procedure: 11:40 Pre-procedure diagnosis: 1. FORAMINAL STENOSIS WITH LE SYMPTOMS Post-procedure diagnosis: same Procedure Notes Procedure: 1. FLUOROSCOPICALLY GUIDED CONTRAST CONTROLLED TRANSFORAMINAL EPIDURAL STEROID INJECTION - RIGHT L4/5 TFESI Indications: Constance is referred for treatment of Foraminal Stenosis with Right LE Symptoms Physician: Jian Moy Total Fluoroscopy time (seconds): 18 Total sedation minutes: 17 Complications: none Procedure in detail & Post-procedure care: FINDINGS Foraminal Nerve Root Compression secondary to disc disease and facet hypertrophy DESCRIPTION OF PROCEDURE Following review of allergy and review of potential side effects and complications, including, but not necessarily limited to, infection, allergic reaction, local tissue breakdown, stroke, temporary or permanent nerve injury, paralysis, and possible , the patient indicated that the patient understood and agreed to proceed. An informed consent document was signed by the patient, witnessed by a nurse, and placed in the patient's chart. Additionally, other treatment options including medications, modalities, and physical therapy were reviewed with the patient. After review of previous anaesthesic history and IV conscious sedation the patient was deemed safe to proceed with today?s procedure with IV conscious sedation as ASA class II designation. Safety time-out was performed to confirm patient ID, procedure to be performed and site of procedure. IV sedation was accomplished with a combination of 2mg of Versed was administered by the RN after DO order, titrated to patient comfort during the course of the procedure while the patient remained responsive to all verbal commands In the prone position following sterile prep and drape of the lumbar region, the right L4/5 posterior neuroforamen was identified fluoroscopically. The skin was anesthetized via a 25-gauge 1.5-inch needle with 1% lidocaine solution. At this point, a 22-gauge 5-inch spinal needle was atraumatically introduced and advanced under fluoroscopic guidance through the posterior right L4/5 neuroforamen to approximately the anterior aspect of the canal. Depth was confirmed on lateral view. Following negative aspiration, injection of approximately 1.5cc of Isovue 200 under live fluoroscopy in the AP view confirmed excellent flow along the nerve root, into the epidural space without vascular or intrathecal uptake observed Radiological data, including multiple fluoroscopic views of the lumbosacral spine, reveal a spinal needle at the right L4/5 posterior neuroforamen. Subsequent views show flow of contrast material flowing superiorly and inferiorly along the nerve root confirming epidural flow. Subsequently, a test dose of 1.5 cc of 1% lidocaine solution was administered and patient was observed for two minutes for signs or symptoms of complications, including abdominal pain, shortness of breath, bilateral upper or lower extremity weakness, nausea and vomiting, prior to steroid injection. At this point, a total of 3cc or 20mg of dexamethasone and 6mg of betamethasone was injected without incident. The procedure tolerated the procedure well without signs or symptoms of complications prior to transfer to the recovery area continued monitoring without incident. The patient was then transferred to the recovery area where they were observed for an appropriate time after the injection. The patient reported a VAS score of 7 prior to the procedure and a post- procedure VAS of 0. POST OP INSTRUCTIONS The patient was provided a Pain Log to continue to record their response to the target-specific procedure prior to follow-up visit with their referring physician. Additionally, specific post-injection care instructions and a contact number to our office were provided if concerns arise regarding possible complications associated with the procedure are suspected.
== END 2022-01-28 11:55 | disposition home or self-care (01) ==
LOC: RAD 10:11
PROVIDERS: Family Provider Family Medicine; Referring Provider Physical Medicine & Rehabilitation; Visit Provider Physical Medicine & Rehabilitation
DX: M48.061 Spinal stenosis, lumbar region without neurogenic claudication (principal); M51.16 Intervertebral disc disorders with radiculopathy, lumbar region
CPT/HCPCS: 64483; 99152; J0702; J1100; J2250

== ENCOUNTER → 2022-06-02 11:07 | Outpatient (CLI) | payer MEDICARE, OTHER, SELFPAY ==
[2021-11-27 18:50] VITALS: BMI 33.3
[2022-06-02 13:10] LABS: COVID19 -Nasal RAPID Negative (Negative)
== END ==
PROVIDERS: Family Provider Family Medicine; Visit Provider Physical Medicine & Rehabilitation
DX: Z20.822 Contact with and (suspected) exposure to COVID-19 (principal)
CPT/HCPCS: 87635; C9803

== ENCOUNTER 2022-06-03 13:28 | Outpatient (CLI) | payer MEDICARE, OTHER, SELFPAY ==
[2021-11-27 18:50] VITALS: BMI 33.3
[2022-06-03] VITALS (8 sets, daily range): BP systolic 147–186; BP diastolic 71–86; PULSE 75–85; RESP 13–24; TEMP 36.7; O2SAT 97–100
--- NOTE | 2022-06-03 13:30 | DI.RAD.S_ITS ---
PROCEDURE: PAIN L/S TRANSFORAMINAL INJECT INDICATIONS: SPONDYLOSIS COMPARISON: [facility], , PAIN L/S TRANSFORAMINAL INJECT, 01/28/2022, 11:22. FINDINGS: Fluoroscopic spot filming was performed to verify placement of a spinal needle at the L4-L5 level, as labeled on the films. Appropriate location of the needle tip was confirmed by injection of iodinated contrast. IMPRESSION: Intraprocedural examination within normal limits. Dictated by: Gideon Arellano M.D. on 06/03/2022 at 13:56 Approved by: Gideon Arellano M.D. on 06/03/2022 at 13:57
[2022-06-03] MEDS: MIDAZOLAM 2 MG/2 ML VIAL IV (14:12)
[2022-06-03] MEDS: BUPIVACAINE 0.25% (PF) VIAL 2 ML INJ (14:16)
[2022-06-03] MEDS: BETAMETHASONE 30 MG/5 ML MDV 6 MG INJ (14:16)
[2022-06-03] MEDS: DEXAMETHASONE 10 MG/ML VIAL 20 MG INJ (14:16)
[2022-06-03] MEDS: IOPAMIDOL 15 ML VIAL 3 ML INJ (14:16)
--- NOTE | 2022-06-03 14:30 | P.PCN_ITS ---
Date/Time/Diagnoses Date of procedure: 06/03/22 Time of procedure: 14:30 Pre-procedure diagnosis: 1. FORAMINAL STENOSIS WITH LE SYMPTOMS Post-procedure diagnosis: same Procedure Notes Procedure: 1. FLUOROSCOPICALLY GUIDED CONTRAST CONTROLLED TRANSFORAMINAL EPIDURAL STEROID INJECTION - RIGHT L4/5 TFESI Indications: Constance is referred for treatment of Foraminal Stenosis with Right LE Symptoms Physician: Jian Moy Total Fluoroscopy time (seconds): 13 Total sedation minutes: 14 Complications: none Procedure in detail & Post-procedure care: FINDINGS Foraminal Nerve Root Compression secondary to disc disease and facet hypertrophy DESCRIPTION OF PROCEDURE Following review of allergy and review of potential side effects and complications, including, but not necessarily limited to, infection, allergic reaction, local tissue breakdown, stroke, temporary or permanent nerve injury, paralysis, and possible , the patient indicated that the patient understood and agreed to proceed. An informed consent document was signed by the patient, witnessed by a nurse, and placed in the patient's chart. Additionally, other treatment options including medications, modalities, and physical therapy were reviewed with the patient. After review of previous anaesthesic history and IV conscious sedation the patient was deemed safe to proceed with today?s procedure with IV conscious sedation as ASA class II designation. Safety time-out was performed to confirm patient ID, procedure to be performed and site of procedure. IV sedation was accomplished with a combination of 2mg of Versed was administered by the RN after DO order, titrated to patient comfort during the course of the procedure while the patient remained responsive to all verbal commands In the prone position following sterile prep and drape of the lumbar region, the right L4/5 posterior neuroforamen was identified fluoroscopically. The skin was anesthetized via a 25-gauge 1.5-inch needle with 1% lidocaine solution. At this point, a 22-gauge 5-inch spinal needle was atraumatically introduced and advanced under fluoroscopic guidance through the posterior right L4/5 neuroforamen to approximately the anterior aspect of the canal. Depth was confirmed on lateral view. Following negative aspiration, injection of approximately 1.5cc of Isovue 200 under live fluoroscopy in the AP view confirmed excellent flow along the nerve root, into the epidural space without vascular or intrathecal uptake observed Radiological data, including multiple fluoroscopic views of the lumbosacral spine, reveal a spinal needle at the right L4/5 posterior neuroforamen. Subsequent views show flow of contrast material flowing superiorly and inferiorly along the nerve root confirming epidural flow. Subsequently, a test dose of 1.5 cc of 1% lidocaine solution was administered and patient was observed for two minutes for signs or symptoms of complications, including abdominal pain, shortness of breath, bilateral upper or lower extremity weakness, nausea and vomiting, prior to steroid injection. At this point, a total of 3cc or 20mg of dexamethasone and 6mg of betamethasone was injected without incident. The procedure tolerated the procedure well without signs or symptoms of complications prior to transfer to the recovery area continued monitoring without incident. The patient was then transferred to the recovery area where they were observed for an appropriate time after the injection. The patient reported a VAS score of 7 prior to the procedure and a post- procedure VAS of 0. POST OP INSTRUCTIONS The patient was provided a Pain Log to continue to record their response to the target-specific procedure prior to follow-up visit with their referring physician. Additionally, specific post-injection care instructions and a contact number to our office were provided if concerns arise regarding possible complications associated with the procedure are suspected.
--- NOTE | 2022-06-03 15:33 | PC.NURSE ---
Patient steady on feet able to take few steps, encouraged to be very careful with bilateral lower extremities, discharge instructions reviewed with spouse.
== END 2022-06-03 15:03 | disposition home or self-care (01) ==
PROVIDERS: Family Provider Family Medicine; Referring Provider Physical Medicine & Rehabilitation; Visit Provider Physical Medicine & Rehabilitation
DX: M48.061 Spinal stenosis, lumbar region without neurogenic claudication (principal); M51.16 Intervertebral disc disorders with radiculopathy, lumbar region
CPT/HCPCS: 64483; 99152; J0702; J1100; J2250; J3490

== ENCOUNTER 2022-11-04 14:56 | Outpatient (CLI) | payer MEDICARE, OTHER, SELFPAY ==
[2022-08-27 14:41] VITALS: BMI 33.3
[2022-11-04] VITALS (7 sets, daily range): BP systolic 146–198; BP diastolic 69–100; PULSE 82–88; RESP 18–20; TEMP 36.9; O2SAT 98–100
--- NOTE | 2022-11-04 14:59 | DI.RAD.S_ITS ---
PROCEDURE: PAIN L/S TRANSFORAMINAL INJECT INDICATIONS: SPONDYLOSIS COMPARISON: [facility], , PAIN L/S TRANSFORAMINAL INJECT, 06/03/2022, 14:16. FINDINGS: Fluoroscopic spot filming was performed to verify placement of spinal needles at the right L4-L5 neural foramen level(s), as labeled on the films. Appropriate location(s) of the needle tip(s) was confirmed by injection of iodinated contrast. IMPRESSION: Access needle at the right L4-L5 neural foramen for transforaminal epidural steroid injection. Dictated by: Opal Luna MD, PhD on 11/04/2022 at 16:33 Approved by: Opal Luan MD, PhD on 11/04/2022 at 16:33
[2022-11-04] MEDS: MIDAZOLAM 2 MG/2 ML VIAL IV (15:25)
[2022-11-04] MEDS: BUPIVACAINE 0.25% (PF) VIAL 2 ML INJ (15:31)
[2022-11-04] MEDS: methylPREDNISolone acetate 80 MG/ML VIAL INJ (15:32)
[2022-11-04] MEDS: IOPAMIDOL 15 ML VIAL 3 ML INJ (15:32)
[2022-11-04] MEDS: DEXAMETHASONE 10 MG/ML VIAL 20 MG INJ (15:32)
--- NOTE | 2022-11-04 15:40 | P.PCN_ITS ---
Date/Time/Diagnoses Date of procedure: 11/04/22 Time of procedure: 15:40 Pre-procedure diagnosis: 1. FORAMINAL STENOSIS WITH LE SYMPTOMS Post-procedure diagnosis: same Procedure Notes Procedure: 1. FLUOROSCOPICALLY GUIDED CONTRAST CONTROLLED TRANSFORAMINAL EPIDURAL STEROID INJECTION - RIGHT L4/5 TFESI Indications: Misael is referred for treatment of Foraminal Stenosis with Right LE Symptoms Physician: Jian Moy Total Fluoroscopy time (seconds): 12 Total sedation minutes: 12 Complications: none Procedure in detail & Post-procedure care: FINDINGS Foraminal Nerve Root Compression secondary to disc disease and facet hypertrophy DESCRIPTION OF PROCEDURE Following review of allergy and review of potential side effects and complications, including, but not necessarily limited to, infection, allergic reaction, local tissue breakdown, stroke, temporary or permanent nerve injury, paralysis, and possible , the patient indicated that the patient understood and agreed to proceed. An informed consent document was signed by the patient, witnessed by a nurse, and placed in the patient's chart. Additionally, other treatment options including medications, modalities, and physical therapy were reviewed with the patient. After review of previous anaesthesic history and IV conscious sedation the patient was deemed safe to proceed with today?s procedure with IV conscious sedation as ASA class II designation. Safety time-out was performed to confirm patient ID, procedure to be performed and site of procedure. IV sedation was accomplished with a combination of 2mg of Versed was administered by the RN after DO order, titrated to patient comfort during the course of the procedure while the patient remained responsive to all verbal commands In the prone position following sterile prep and drape of the lumbar region, the right L4/5 posterior neuroforamen was identified fluoroscopically. The skin was anesthetized via a 25-gauge 1.5-inch needle with 1% lidocaine solution. At this point, a 22-gauge 5-inch spinal needle was atraumatically introduced and advanced under fluoroscopic guidance through the posterior right L4/5 neuroforamen to approximately the anterior aspect of the canal. Depth was confirmed on lateral view. Following negative aspiration, injection of approximately 1.5cc of Isovue 200 under live fluoroscopy in the AP view confirmed excellent flow along the nerve root, into the epidural space without vascular or intrathecal uptake observed Radiological data, including multiple fluoroscopic views of the lumbosacral spine, reveal a spinal needle at the right L4/5 posterior neuroforamen. Subsequent views show flow of contrast material flowing superiorly and inferiorly along the nerve root confirming epidural flow. Subsequently, a test dose of 1.5 cc of 1% lidocaine solution was administered and patient was observed for two minutes for signs or symptoms of complications, including abdominal pain, shortness of breath, bilateral upper or lower extremity weakness, nausea and vomiting, prior to steroid injection. At this point, a total of 3cc or 20mg of dexamethasone and 80mg of depo medrol was injected without incident. The procedure tolerated the procedure well without signs or symptoms of complications prior to transfer to the recovery area continued monitoring without incident. The patient was then transferred to the recovery area where they were observed for an appropriate time after the injection. The patient reported a VAS score of 7 prior to the procedure and a post- procedure VAS of 0. POST OP INSTRUCTIONS The patient was provided a Pain Log to continue to record their response to the target-specific procedure prior to follow-up visit with their referring physicia n. Additionally, specific post-injection care instructions and a contact number to our office were provided if concerns arise regarding possible complications associated with the procedure are suspected.
== END 2022-11-04 15:55 | disposition home or self-care (01) ==
LOC: RAD 14:58
PROVIDERS: Family Provider Family Medicine; Referring Provider Physical Medicine & Rehabilitation; Visit Provider Physical Medicine & Rehabilitation
DX: M48.061 Spinal stenosis, lumbar region without neurogenic claudication (principal); M51.16 Intervertebral disc disorders with radiculopathy, lumbar region
CPT/HCPCS: 64483; 99152; J0702; J1040; J1100; J2250; J3490

== ENCOUNTER → 2023-01-28 06:58 | Outpatient (CLI) | payer MEDICARE, OTHER, SELFPAY ==
[2022-08-27 14:41] VITALS: BMI 33.3
--- NOTE | 2023-01-28 07:04 | DI.MRI.S_ITS ---
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 COMPARISON: [facility], [facility], MRI L-SPINE W/WO CONTRAST, 09/08/2019, 10:28. [facility], CR, SPINE LUMB MIN 4VW, 02/24/2017, 13:15. [facility], , MR LUMBAR SPINE WO CON, 11/02/2018, 6:34. FINDINGS: Image quality: Excellent. Alignment and Curvature: 5 lumbar type vertebral bodies are present by plain film. Loss of normal lumbar lordosis. 4 mm of retrolisthesis of L1 on L2. 3 mm of retrolisthesis of L2 on L3. Mild diffuse leftward curvature of the mid/upper lumbar spine. Bone Marrow: Marrow is of normal overall signal. No acute vertebral body compression fractures. Moderate reactive signal within the endplates adjacent to the T12-L1, L1-L2, L2-L3, and L3-L4 intervertebral discs. Mild reactive signal within the remaining endplates of the lumbar and lower thoracic spine. Spinal Cord: Conus medullaris terminates at the mid L2 level. Visualized cord demonstrates normal signal and size. Paraspinous Soft Tissues: No paravertebral masses. T12-L1: Mild disc height loss. Moderate disc desiccation. Mild diffuse disc bulge. Mild canal stenosis. No foraminal stenosis. No significant change. L1-L2: Moderate disc desiccation. Mild disc height loss and diffuse disc bulge. Mild bilateral facet hypertrophy. Mild canal stenosis. Moderate right and mild left foraminal stenosis. No significant change. L2-L3: Severe disc height loss and desiccation. Mild diffuse disc bulge/osteophyte. Mild bilateral facet hypertrophy. Mild canal stenosis. Moderate right and mild left foraminal stenosis. L3-L4: Moderate disc height loss and desiccation. Mild diffuse disc bulge. Mild bilateral facet hypertrophy. Mild canal stenosis. Moderate bilateral foraminal stenosis. L4-L5: Severe disc height loss and desiccation. Mild bilateral facet hypertrophy. Mild canal stenosis. Moderate bilateral foraminal stenosis. L5-S1: Mild disc height loss. Moderate disc desiccation. Mild diffuse disc bulge. Mild bilateral facet hypertrophy. Mild canal stenosis. Moderate to severe bilateral foraminal stenosis. Mild L5 nerve root compression bilaterally. No significant change. IMPRESSION: 1. Multilevel degenerative disc and facet disease, as well as ligamentum flavum hypertrophy and epidural lipomatosis. 2. Mild multilevel canal stenosis. 3. Multilevel foraminal stenoses, worst at L5-S1 where there is associated intraforaminal nerve root compression. Recommend correlation with clinical symptoms to ascertain relevance of this finding. Dictated by: Sarita Stoll M.D. on 01/28/2023 at 9:46 Approved by: Sarita Stoll M.D. on 01/28/2023 at 9:56
== END ==
PROVIDERS: Family Provider Family Medicine; PCP Family Medicine; Referring Provider Physical Medicine & Rehabilitation; Visit Provider Physical Medicine & Rehabilitation
DX: M51.16 Intervertebral disc disorders with radiculopathy, lumbar region (principal); M51.17 Intervertebral disc disorders with radiculopathy, lumbosacral region; M47.26 Other spondylosis with radiculopathy, lumbar region; M47.27 Other spondylosis with radiculopathy, lumbosacral region; M48.061 Spinal stenosis, lumbar region without neurogenic claudication; M48.07 Spinal stenosis, lumbosacral region; Z98.890 Other specified postprocedural states
CPT/HCPCS: 72148

== ENCOUNTER → 2023-02-04 06:46 | Outpatient (CLI) | payer MEDICARE, OTHER, SELFPAY ==
[2022-08-27 14:41] VITALS: BMI 33.3
[2023-02-04 07:49] LABS: Add Manual Diff / Slide Review NO; Basophils Absolute Auto 0 /uL (0-100); Basophils Percent Auto 0.7 % (0-2); Eosinophils Absolute Auto 200 /uL (0-450); Eosinophils Percent Auto 2.7 % (2-4); Hematocrit 36.5 % (36-46); Lymphocytes Absolute Auto 2400 /uL (1100-4500); Lymphocytes Percent Auto 35.8 % (25-40); Mean Corpuscular HGB Conc 32.9 % (30-36); Mean Corpuscular Hemoglobin 27.3 PG (26-34); Mean Corpuscular Volume 82.8 fL (80-100); Monocytes Absolute Auto 700 /uL (0-900); Monocytes Percent Auto 9.8 % (3-14); Neutrophils Absolute Auto 3500 /uL (1500-7000); Platelet Count 322 X10^3/uL (150-400); Red Blood Cell Count 4.41 X10^6/uL (4.0-5.2); Red Cell Distribution Width 16.3 % (11.6-14.8); White Blood Cell Count 6.8 X10^3/uL (4.5-11.0)
[2023-02-04 08:11] LABS: Alanine Aminotransferase 22 IU/L (<35); Albumin Globulin Ratio 1.5 (1.0-2.8); Alkaline Phosphatase 106 U/L (38-126); Aspartate Aminotransferase 20 IU/L (14-36); BUN Creatinine Ratio 21.3 (6-22); Bilirubin Total 0.3 mg/dL (0.2-1.3); Blood Urea Nitrogen 17 mg/dL (7-17); Calcium 9.1 mg/dL (8.4-10.2); Carbon Dioxide 26 mmol/L (22-32); Chloride 105 mmol/L (98-107); Cholesterol 211 mg/dL (140-199); Estimated Glomerular Filt Rate > 60 mL/min (>60); Globulin 2.6 g/dL (1.7-4.1); Glucose 90 mg/dL (80-110); HDL Cholesterol 63 mg/dL (40-60); HEMOLYSIS < 15 (0-50); LDL Cholesterol Calculated 128 mg/dL (<100); Potassium 4.5 mmol/L (3.4-5.1); Sodium 139 mmol/L (137-145); Total Protein 6.6 g/dL (6.3-8.2); Triglycerides 98 mg/dL (35-150)
[2023-02-04 08:34] LABS: TSH w/ Reflex to FT4 2.89 uIU/mL (0.47-4.68)
[2023-02-04 09:54] LABS: Creatinine Urine Random 156.3 mg/dL
[2023-02-04 10:13] LABS: Microalbumin Urine Random < 0.6 mg/dL (0-1.6)
== END ==
PROVIDERS: Family Provider Family Medicine; PCP Family Medicine; Referring Provider Family Medicine; Visit Provider Family Medicine
DX: D64.9 Anemia, unspecified (principal); I10 Essential (primary) hypertension
CPT/HCPCS: 36415; 80053; 80061; 82043; 82570; 84443; 85025

== ENCOUNTER 2023-02-26 10:02 | Outpatient (CLI) | payer MEDICARE, OTHER, SELFPAY ==
[2022-08-27 14:41] VITALS: BMI 33.3
[2023-02-26] VITALS (9 sets, daily range): BP systolic 119–167; BP diastolic 56–79; PULSE 82–87; RESP 18–21; TEMP 36.9; O2SAT 95–100
--- NOTE | 2023-02-26 10:04 | DI.RAD.S_ITS ---
PROCEDURE: PAIN L INTERLAMINAR/CAUDAL INJ INDICATIONS: SPONDYLOSIS COMPARISON: [facility], XA, PAIN L INTERLAMINAR/CAUDAL INJ, 05/05/2019, 9:16. [facility], MR, MR LUMBAR SPINE WO CON, 01/28/2023, 7:38. [facility], XA, PAIN L/S TRANSFORAMINAL INJECT, 11/04/2022, 16:26. FINDINGS: Fluoroscopic spot filming was performed to verify placement of a spinal needle at the L4-L5 level, as labeled on the films. Appropriate location of the needle tip was confirmed by injection of iodinated contrast. IMPRESSION: Intraprocedural examination within normal limits. Dictated by: Gideon Arellano M.D. on 02/26/2023 at 11:39 Approved by: Gideon Arellano M.D. on 02/26/2023 at 11:39
[2023-02-26] MEDS: MIDAZOLAM 2 MG/2 ML VIAL IV (11:14)
[2023-02-26] MEDS: DEXAMETHASONE 10 MG/ML VIAL 20 MG INJ (11:21)
[2023-02-26] MEDS: BETAMETHASONE 30 MG/5 ML MDV 6 MG INJ (11:21)
[2023-02-26] MEDS: BUPIVACAINE 0.25% (PF) VIAL 2 ML INJ (11:21)
[2023-02-26] MEDS: IOPAMIDOL 15 ML VIAL 3 ML INJ (11:22)
--- NOTE | 2023-02-26 11:31 | P.PCN_ITS ---
Date/Time/Diagnoses Date of procedure: 02/26/23 Time of procedure: 11:31 Pre-procedure diagnosis: 1. HNP WITH RADICULAR FEATURES, 2. MULTILEVEL CENTRAL STENOSIS, Post-procedure diagnosis: same Procedure Notes Procedure: 1. FLUOROSCOPICALLY GUIDED CONTRAST CONTROLLED INTERLAMINAR EPIDURAL STEROID INJECTION -L4/5 Indications: Misael is referred by Dr. Talley for treatment of Bilateral Foraminal Stenosis R>L LE symptoms. Physician: Jian Moy Total Fluoroscopy time (seconds): 8 Total sedation minutes: 12 Complications: none Procedure in detail & Post-procedure care: FINDINGS Multilevel Central Spinal Stenosis with Nerve Root Compression DESCRIPTION OF PROCEDURE Fluoroscopically guided, contrast-controlled L4/5 translaminar epidural steroid injection. Following review of allergy and review of potential side effects and complications, including, but not necessarily limited to, infection, allergic reaction, local tissue breakdown, temporary as well as permanent nerve injury, paralysis, stroke and possible , the patient indicated that the patient understood and agreed to proceed. An informed consent document was signed by the patient, witnessed by a nurse, and placed in the patient's chart. Additionally, other treatment options including modalities, medications, and physical therapy were reviewed with the patient. After review of previous anaesthesic history and IV conscious sedation the patient was deemed safe to proceed with today?s procedure with IV conscious sedation as ASA class II designation. Safety time-out was performed to confirm patient ID, procedure to be performed and site of procedure. IV sedation was accomplished with a combination of 2mg of Versed was administered by the RN after DO order, titrated to patient comfort during the course of the procedure while the patient remained responsive to all verbal commands In the prone position, following sterile prep and drape of the lumbar region, the L4/5 translaminar space was identified fluoroscopically. The skin was anesthetized via a 25-gauge, 1.5inch needle with 1% lidocaine solution. At this point, a 22-gauge short bevel spinal needle was atraumatically introduced and advanced under fluoroscopic guidance into the region of the L4/5 translaminar space. Depth was confirmed on lateral view. Radiological data, including multiple fluoroscopic views of the lumbar spine, reveal a spinal needle at the L4/5 translaminar space. Lateral views then show placement of the needle in the epidural space. Subsequent views show contrast material flowing superiorly and inferiorly in the epidural space. No vascular or intrathecal uptake is observed. At this point, using loss of resistance technique with saline and air, the epidural space was entered. This was confirmed following negative aspiration with injection of approximately 1.5cc of Isovue 200, showing excellent epidural flow without vascular or intrathecal uptake. At this point, 1cc of 1% lidocaine solution combined with 3cc or 20mg of dexamethasone and 6mg betamethasone was injected without incident. The patient tolerated the procedure well without signs or symptoms of complications prior to transfer to the recovery area continued monitoring without incident. The patient was then transferred to the recovery area where they were observed for an appropriate period of time after the injection. The patient reported a VAS score of 6 prior to the procedure and a post- procedure VAS of 0. POST OP INSTRUCTIONS The patient was provided a Pain Log to continue to record their response to the target-specific procedure prior to follow-up visit with their referring physician. Additionally, specific post-injection care instructions and a contact number to our office were provided if concerns arise regarding possible complications associated with the procedure are suspected.
== END 2023-02-26 11:45 | disposition home or self-care (01) ==
PROVIDERS: Family Provider Family Medicine; PCP Family Medicine; Referring Provider Physical Medicine & Rehabilitation; Visit Provider Physical Medicine & Rehabilitation
DX: M51.16 Intervertebral disc disorders with radiculopathy, lumbar region (principal); M48.061 Spinal stenosis, lumbar region without neurogenic claudication
CPT/HCPCS: 62323; 99152; J0702; J1100; J2250; J3490

== ENCOUNTER → 2023-06-20 09:03 | Outpatient (CLI) | payer MEDICARE, OTHER, SELFPAY ==
[2022-08-27 14:41] VITALS: BMI 33.3
--- NOTE | 2023-06-20 09:06 | DI.RAD.S_ITS ---
PROCEDURE: XR LUMBAR SPINE MIN 4V INDICATIONS: new acute pain s/p moving furniture TECHNIQUE: 5 views of the lumbar spine were acquired, including bilateral oblique views. COMPARISON: [facility], , XR LUMBAR SPINE MIN 4V, 07/27/2021, 11:48. FINDINGS: Bones: 5 nonrib-bearing vertebrae are present. Mild levo curvature with the apex at L1. There is complete disc height loss and possible vertebral body ankylosis L2-3. Moderate to severe disc height loss at the other levels and moderate endplate osteophytes. Prominent multilevel facet arthropathy. No vertebral body compression fractures. No suspicious bony lesions. Bilateral hip arthroplasties. Soft tissues: Overlying bowel gas pattern is normal. No suspicious soft tissue calcifications. Cholecystectomy clips. Oblique images: No pars defects. IMPRESSION: 1. No acute fractures or suspicious subluxation. 2. Chronic multilevel facet arthropathy and disc/endplate degeneration. Dictated by: Natividad Cano M.D. on 06/21/2023 at 0:24 Approved by: Natividad Cano M.D. on 06/21/2023 at 0:26
== END ==
PROVIDERS: Family Provider Family Medicine; PCP Family Medicine; Referring Provider Physical Medicine & Rehabilitation; Visit Provider Physical Medicine & Rehabilitation
DX: Z96.643 Presence of artificial hip joint, bilateral (principal); Z98.890 Other specified postprocedural states; M84.48XK Pathological fracture, other site, subsequent encounter for fracture with nonunion; M47.816 Spondylosis without myelopathy or radiculopathy, lumbar region
CPT/HCPCS: 72110

== ENCOUNTER 2023-07-09 07:11 | Outpatient (CLI) | payer MEDICARE, OTHER, SELFPAY ==
[2022-08-27 14:41] VITALS: BMI 33.3
[2023-07-09] VITALS (9 sets, daily range): BP systolic 128–178; BP diastolic 60–87; PULSE 84–94; RESP 16–23; TEMP 36.8; O2SAT 98–99
--- NOTE | 2023-07-09 07:13 | DI.RAD.S_ITS ---
PROCEDURE: PAIN L/S TRANSFORAMINAL INJECT INDICATIONS: SPONDYLOSIS COMPARISON: [facility], CR, XR LUMBAR SPINE MIN 4V, 06/20/2023, 9:07. XA, PAIN L INTERLAMINAR/CAUDAL INJ, 02/26/2023, 11:19. MR, MR LUMBAR SPINE WO CON, 01/28/2023, 7:38. FINDINGS: Fluoroscopic spot filming was performed to verify placement of spinal needles at the L4-L5 level(s), as labeled on the films. Appropriate location(s) of the needle tip(s) was confirmed by injection of iodinated contrast. IMPRESSION: Fluoroscopy for pain management Dictated by: Marc Dietrich M.D. on 07/09/2023 at 10:13 Approved by: Marc Dietrich M.D. on 07/09/2023 at 10:15
[2023-07-09] MEDS: MIDAZOLAM 2 MG/2 ML VIAL IV (08:16)
--- NOTE | 2023-07-09 08:39 | P.PCN_ITS ---
Date/Time/Diagnoses Date of procedure: 07/09/23 Time of procedure: 08:39 Pre-procedure diagnosis: 1. FORAMINAL STENOSIS WITH LE SYMPTOMS Post-procedure diagnosis: same Procedure Notes Procedure: 1. FLUOROSCOPICALLY GUIDED CONTRAST CONTROLLED TRANSFORAMINAL EPIDURAL STEROID INJECTION - RIGHT L4/5 TFESI Indications: Misael is referred by Dr. Talley for treatment of Foraminal Stenosis with Right LE Symptoms Physician: Jian Moy Total Fluoroscopy time (seconds): 10 Total sedation minutes: 17 Complications: none Procedure in detail & Post-procedure care: FINDINGS Foraminal Nerve Root Compression secondary to disc disease and facet hypertrophy DESCRIPTION OF PROCEDURE Following review of allergy and review of potential side effects and complications, including, but not necessarily limited to, infection, allergic reaction, local tissue breakdown, stroke, temporary or permanent nerve injury, paralysis, and possible , the patient indicated that the patient understood and agreed to proceed. An informed consent document was signed by the patient, witnessed by a nurse, and placed in the patient's chart. Additionally, other treatment options including medications, modalities, and physical therapy were reviewed with the patient. After review of previous anaesthesic history and IV conscious sedation the patient was deemed safe to proceed with today?s procedure with IV conscious sedation as ASA class II designation. Safety time-out was performed to confirm patient ID, procedure to be performed and site of procedure. IV sedation was accomplished with a combination of 2mg of Versed was administered by the RN after DO order, titrated to patient comfort during the course of the procedure while the patient remained responsive to all verbal commands In the prone position following sterile prep and drape of the lumbar region, the right L4/5 posterior neuroforamen was identified fluoroscopically. The skin was anesthetized via a 25-gauge 1.5-inch needle with 1% lidocaine solution. At this point, a 25-gauge 3.5-inch spinal needle was atraumatically introduced and advanced under fluoroscopic guidance through the posterior right L4/5 neuroforamen to approximately the anterior aspect of the canal. Depth was confirmed on lateral view. Following negative aspiration, injection of approximately 1.5cc of Isovue 200 under live fluoroscopy in the AP view confirmed excellent flow along the nerve root, into the epidural space without vascular or intrathecal uptake observed Radiological data, including multiple fluoroscopic views of the lumbosacral spine, reveal a spinal needle at the right L4/5 posterior neuroforamen. Subsequent views show flow of contrast material flowing superiorly and inferiorly along the nerve root confirming epidural flow. Subsequently, a test dose of 1.5 cc of 1% lidocaine solution was administered and patient was observed for two minutes for signs or symptoms of complications, including abdominal pain, shortness of breath, bilateral upper or lower extremity weakness, nausea and vomiting, prior to steroid injection. At this point, a total of 2cc or 10mg of dexamethasone and 6mg of betamethasone was injected without incident. The procedure tolerated the procedure well without signs or symptoms of complications prior to transfer to the recovery area continued monitoring without incident. The patient was then transferred to the recovery area where they were observed for an appropriate time after the injection. The patient reported a VAS score of 7 prior to the procedure and a post- procedure VAS of 0. POST OP INSTRUCTIONS The patient was provided a Pain Log to continue to record their response to the target-specific procedure prior to follow-up visit with their referring physician. Additionally, specific post-injection care instructions and a contact number to our office were provided if concerns arise regarding possible complications associated with the procedure are suspected.
== END 2023-07-09 08:59 | disposition home or self-care (01) ==
LOC: RAD 07:12
PROVIDERS: Family Provider Family Medicine; PCP Family Medicine; Referring Provider Physical Medicine & Rehabilitation; Visit Provider Physical Medicine & Rehabilitation
DX: M48.061 Spinal stenosis, lumbar region without neurogenic claudication (principal); M51.16 Intervertebral disc disorders with radiculopathy, lumbar region; M48.26 Kissing spine, lumbar region
CPT/HCPCS: 64483; 99152; J0702; J1100; J2250

== ENCOUNTER 2023-11-19 07:07 | Outpatient (CLI) | payer MEDICARE, OTHER, SELFPAY ==
[2022-08-27 14:41] VITALS: BMI 33.3
[2023-11-19] VITALS (11 sets, daily range): BP systolic 105–172; BP diastolic 65–88; PULSE 80–94; RESP 16–22; TEMP 36.8; O2SAT 96–100
--- NOTE | 2023-11-19 08:00 | DI.RAD.S_ITS ---
PROCEDURE: PAIN L/S TRANSFORAMINAL INJECT INDICATIONS: INTERVERTEBRAL DISC DISPLACEMENT COMPARISON: [facility], , PAIN L/S TRANSFORAMINAL INJECT, 07/09/2023, 8:25. FINDINGS: Fluoroscopic spot filming was performed to verify placement of spinal needles at the right L4-5 level(s), as labeled on the films. Appropriate location(s) of the needle tip(s) was confirmed by injection of iodinated contrast. IMPRESSION: Intra procedural examination demonstrating appropriate positions of the needles. Dictated by: Cornelius Coles M.D. on 11/19/2023 at 8:58 Approved by: Cornelius Coles M.D. on 11/19/2023 at 8:58
[2023-11-19] MEDS: MIDAZOLAM 2 MG/2 ML VIAL IV (08:16)
[2023-11-19] MEDS: DEXAMETHASONE 10 MG/ML VIAL INJ (08:31)
[2023-11-19] MEDS: BETAMETHASONE 30 MG/5 ML MDV 6 MG INJ (08:31)
[2023-11-19] MEDS: BUPIVACAINE 0.25% (PF) VIAL 2 ML INJ (08:31)
[2023-11-19] MEDS: iopamidoL 15 ML VIAL 3 ML INJ (08:31)
--- NOTE | 2023-11-19 08:43 | P.PCN_ITS ---
Date/Time/Diagnoses Date of procedure: 11/19/23 Time of procedure: 08:43 Pre-procedure diagnosis: 1. FORAMINAL STENOSIS WITH LE SYMPTOMS Post-procedure diagnosis: same Procedure Notes Procedure: 1. FLUOROSCOPICALLY GUIDED CONTRAST CONTROLLED TRANSFORAMINAL EPIDURAL STEROID INJECTION - RIGHT L4/5 TFESI Indications: Misael is referred by Dr. Talley for treatment of Foraminal Stenosis with Right LE Symptoms Physician: Jian Moy Total Fluoroscopy time (seconds): 17 Total sedation minutes: 23 Complications: none Procedure in detail & Post-procedure care: FINDINGS Foraminal Nerve Root Compression secondary to disc disease and facet hypertrophy DESCRIPTION OF PROCEDURE Following review of allergy and review of potential side effects and complications, including, but not necessarily limited to, infection, allergic reaction, local tissue breakdown, stroke, temporary or permanent nerve injury, paralysis, and possible , the patient indicated that the patient understood and agreed to proceed. An informed consent document was signed by the patient, witnessed by a nurse, and placed in the patient's chart. Additionally, other treatment options including medications, modalities, and physical therapy were reviewed with the patient. After review of previous anaesthesic history and IV conscious sedation the patient was deemed safe to proceed with today?s procedure with IV conscious sedation as ASA class II designation. Safety time-out was performed to confirm patient ID, procedure to be performed and site of procedure. IV sedation was accomplished with a combination of 2mg of Versed was administered by the RN after DO order, titrated to patient comfort during the course of the procedure while the patient remained responsive to all verbal commands In the prone position following sterile prep and drape of the lumbar region, the right L4/5 posterior neuroforamen was identified fluoroscopically. The skin was anesthetized via a 25-gauge 1.5-inch needle with 1% lidocaine solution. At this point, a 22-gauge 5-inch spinal needle was atraumatically introduced and advanced under fluoroscopic guidance through the posterior right L4/5 neuroforamen to approximately the anterior aspect of the canal. Depth was confirmed on lateral view. Following negative aspiration, injection of approximately 1.5cc of Isovue 200 under live fluoroscopy in the AP view confirmed excellent flow along the nerve root, into the epidural space without vascular or intrathecal uptake observed Radiological data, including multiple fluoroscopic views of the lumbosacral spine, reveal a spinal needle at the right L4/5 posterior neuroforamen. Subsequent views show flow of contrast material flowing superiorly and inferiorly along the nerve root confirming epidural flow. Subsequently, a test dose of 1.5 cc of 1% lidocaine solution was administered and patient was observed for two minutes for signs or symptoms of complications, including abdominal pain, shortness of breath, bilateral upper or lower extremity weakness, nausea and vomiting, prior to steroid injection. At this point, a total of 2cc or 10mg of dexamethasone and 6mg of betamethasone was injected without incident. The procedure tolerated the procedure well without signs or symptoms of complications prior to transfer to the recovery area continued monitoring without incident. The patient was then transferred to the recovery area where they were observed for an appropriate time after the injection. The patient reported a VAS score of 7 prior to the procedure and a post- procedure VAS of 0. POST OP INSTRUCTIONS The patient was provided a Pain Log to continue to record their response to the target-specific procedure prior to follow-up visit with their referring physician. Additionally, specific post-injection care instructions and a contact number to our office were provided if concerns arise regarding possible complications associated with the procedure are suspected.
== END 2023-11-19 09:15 | disposition home or self-care (01) ==
PROVIDERS: Family Provider Family Medicine; PCP Family Medicine; Referring Provider Physical Medicine & Rehabilitation; Visit Provider Physical Medicine & Rehabilitation
DX: M48.061 Spinal stenosis, lumbar region without neurogenic claudication (principal); M51.16 Intervertebral disc disorders with radiculopathy, lumbar region; M47.26 Other spondylosis with radiculopathy, lumbar region
CPT/HCPCS: 64483; 99152; 99153; J0702; J1100; J2250; J3490

== ENCOUNTER 2024-03-15 09:13 | Outpatient (CLI) | payer MEDICARE, OTHER, SELFPAY ==
[2022-08-27 14:41] VITALS: BMI 33.3
[2024-03-15] VITALS (11 sets, daily range): BP systolic 117–176; BP diastolic 56–88; PULSE 73–87; RESP 16–23; TEMP 36.9; O2SAT 96–100
--- NOTE | 2024-03-15 10:15 | DI.RAD.S_ITS ---
PROCEDURE: PAIN L/S TRANSFORAMINAL INJECT INDICATIONS: Right L4-5 and L5-S1 transforaminal HILARIA COMPARISON: [facility], XA, PAIN L/S TRANSFORAMINAL INJECT, 11/19/2023, 9:25. FINDINGS: Fluoroscopic spot filming was performed to verify placement of spinal needles at the L4-5, L5-S1. level(s), as labeled on the films. Appropriate location(s) of the needle tip(s) was confirmed by injection of iodinated contrast. IMPRESSION: Contrast annual placement overlying L4-5, L5-S1. Dictated by: Lizett Ghotra M.D. on 03/15/2024 at 14:18 Approved by: Lizett Ghotra M.D. on 03/15/2024 at 14:18
[2024-03-15] MEDS: MIDAZOLAM 2 MG/2 ML VIAL IV (10:24)
[2024-03-15] MEDS: BUPIVACAINE 0.25% (PF) VIAL 2 ML INJ (10:28)
[2024-03-15] MEDS: DEXAMETHASONE 10 MG/ML VIAL 20 MG INJ (10:28)
[2024-03-15] MEDS: iopamidoL 15 ML VIAL 3 ML INJ (10:28)
[2024-03-15] MEDS: BETAMETHASONE 30 MG/5 ML MDV 12 MG INJ (10:28)
--- NOTE | 2024-03-15 10:44 | P.PCN_ITS ---
Date/Time/Diagnoses Date of procedure: 03/15/24 Time of procedure: 10:44 Pre-procedure diagnosis: 1. FORAMINAL STENOSIS WITH LE SYMPTOMS Post-procedure diagnosis: same Procedure Notes Procedure: 1. FLUOROSCOPICALLY GUIDED CONTRAST CONTROLLED TRANSFORAMINAL EPIDURAL STEROID INJECTION - RIGHT L4/5 TFESI Indications: Misael is referred by Dr. Talley for treatment of Foraminal Stenosis with Right LE Symptoms Physician: Jian Moy Total Fluoroscopy time (seconds): 9 Total sedation minutes: 14 Complications: none Procedure in detail & Post-procedure care: FINDINGS Foraminal Nerve Root Compression secondary to disc disease and facet hypertrophy DESCRIPTION OF PROCEDURE Following review of allergy and review of potential side effects and complications, including, but not necessarily limited to, infection, allergic reaction, local tissue breakdown, stroke, temporary or permanent nerve injury, paralysis, and possible , the patient indicated that the patient understood and agreed to proceed. An informed consent document was signed by the patient, witnessed by a nurse, and placed in the patient's chart. Additionally, other treatment options including medications, modalities, and physical therapy were reviewed with the patient. After review of previous anaesthesic history and IV conscious sedation the patient was deemed safe to proceed with today?s procedure with IV conscious sedation as ASA class II designation. Safety time-out was performed to confirm patient ID, procedure to be performed and site of procedure. IV sedation was accomplished with a combination of 2mg of Versed was administered by the RN after DO order, titrated to patient comfort during the course of the procedure while the patient remained responsive to all verbal commands In the prone position following sterile prep and drape of the lumbar region, the right L4/5 posterior neuroforamen was identified fluoroscopically. The skin was anesthetized via a 25-gauge 1.5-inch needle with 1% lidocaine solution. At this point, a 25-gauge 3.5-inch spinal needle was atraumatically introduced and advanced under fluoroscopic guidance through the posterior right L4/5 neuroforamen to approximately the anterior aspect of the canal. Depth was confirmed on lateral view. Following negative aspiration, injection of approximately 1.5cc of Isovue 200 under live fluoroscopy in the AP view confirmed excellent flow along the nerve root, into the epidural space without vascular or intrathecal uptake observed Radiological data, including multiple fluoroscopic views of the lumbosacral spine, reveal a spinal needle at the right L4/5 posterior neuroforamen. Subsequent views show flow of contrast material flowing superiorly and inferiorly along the nerve root confirming epidural flow. Subsequently, a test dose of 1.5 cc of 1% lidocaine solution was administered and patient was observed for two minutes for signs or symptoms of complications, including abdominal pain, shortness of breath, bilateral upper or lower extremity weakness, nausea and vomiting, prior to steroid injection. At this point, a total of 2cc or 10mg of dexamethasone and 6mg of betamethasone was injected without incident. The procedure tolerated the procedure well without signs or symptoms of complications prior to transfer to the recovery area continued monitoring without incident. The patient was then transferred to the recovery area where they were observed for an appropriate time after the injection. The patient reported a VAS score of 7 prior to the procedure and a post- procedure VAS of 0. POST OP INSTRUCTIONS The patient was provided a Pain Log to continue to record their response to the target-specific procedure prior to follow-up visit with their referring physician. Additionally, specific post-injection care instructions and a contact number to our office were provided if concerns arise regarding possible complications associated with the procedure are suspected.
--- NOTE | 2024-03-15 10:45 | P.PCN_ITS ---
Date/Time/Diagnoses Date of procedure: 03/15/24 Time of procedure: 10:45 Pre-procedure diagnosis: FORAMINAL STENOSIS WITH LE SYMPTOMS Post-procedure diagnosis: same Procedure Notes Procedure: 1. FLUOROSCOPICALLY GUIDED CONTRAST CONTROLLED TRANSFORAMINAL EPIDURAL STEROID INJECTION - RIGHT L5/S1 TFESI Indications: Misael is referred by Dr. Talley for treatment of Foraminal Stenosis with Right LE Symptoms Physician: Jian Moy Total Fluoroscopy time (seconds): 9 Total sedation minutes: 14 Complications: none Procedure in detail & Post-procedure care: FINDINGS Foraminal Nerve Root Compression secondary to disc disease and facet hypertrophy DESCRIPTION OF PROCEDURE Following review of allergy and review of potential side effects and complications, including, but not necessarily limited to, infection, allergic reaction, local tissue breakdown, stroke, temporary or permanent nerve injury, paralysis, and possible , the patient indicated that the patient understood and agreed to proceed. An informed consent document was signed by the patient, witnessed by a nurse, and placed in the patient's chart. Additionally, other treatment options including medications, modalities, and physical therapy were reviewed with the patient. After review of previous anaesthesic history and IV conscious sedation the patient was deemed safe to proceed with today?s procedure with IV conscious sedation as ASA class II designation. Safety time-out was performed to confirm patient ID, procedure to be performed and site of procedure. IV sedation was accomplished with a combination of 2mg of Versed was administered by the RN after DO order, titrated to patient comfort during the course of the procedure while the patient remained responsive to all verbal commands In the prone position following sterile prep and drape of the lumbar region, the right L5/S1 posterior neuroforamen was identified fluoroscopically. The skin was anesthetized via a 25-gauge 1.5-inch needle with 1% lidocaine solution. At this point, a 25-gauge 3.5-inch spinal needle was atraumatically introduced and advanced under fluoroscopic guidance through the posterior right L5/S1 neuroforamen to approximately the anterior aspect of the canal. Depth was confirmed on lateral view. Following negative aspiration, injection of approximately 1.5cc of Isovue 200 under live fluoroscopy in the AP view confirmed excellent flow along the nerve root, into the epidural space without vascular or intrathecal uptake observed Radiological data, including multiple fluoroscopic views of the lumbosacral spine, reveal a spinal needle at the right L5/S1 posterior neuroforamen. Subsequent views show flow of contrast material flowing superiorly and inferiorly along the nerve root confirming epidural flow. Subsequently, a test dose of 1.5 cc of 1% lidocaine solution was administered and patient was observed for two minutes for signs or symptoms of complications, including abdominal pain, shortness of breath, bilateral upper or lower extremity weakness, nausea and vomiting, prior to steroid injection. At this point, a total of 2cc or 10mg of dexamethasone and 6mg of betamethasone was injected without incident. The procedure tolerated the procedure well without signs or symptoms of complications prior to transfer to the recovery area continued monitoring without incident. The patient was then transferred to the recovery area where they were observed for an appropriate time after the injection. The patient reported a VAS score of 7 prior to the procedure and a post- procedure VAS of 0. POST OP INSTRUCTIONS The patient was provided a Pain Log to continue to record their response to the target-specific procedure prior to follow-up visit with their referring physician. Additionally, specific post-injection care instructions and a contact number to our office were provided if concerns arise regarding possible complications associated with the procedure are suspected.
--- NOTE | 2024-03-15 11:36 | PC.NURSE ---
Patient had weakness to RLE, able to bear weight, weakness/heaviness when walking in place. Patient held longer, was able to stand a walk in place. Patient states my right leg feels better and at baseline weakness. Patient denies any pain at this time and at baseline mobility prior to injection. Patient states I also use my cane because of my right leg weakness. Cane in patients car.
--- NOTE | 2024-03-15 11:58 | PC.NURSE ---
Please disregard the VS and Aldretes from 1105 and 1110 as well as the DI: Diagnostic Imaging Procedure at 1106. These were entered in error under this patient.
== END 2024-03-15 11:30 | disposition home or self-care (01) ==
PROVIDERS: Family Provider Family Medicine; PCP Family Medicine; Referring Provider Physical Medicine & Rehabilitation; Visit Provider Physical Medicine & Rehabilitation
DX: M48.061 Spinal stenosis, lumbar region without neurogenic claudication (principal); M51.16 Intervertebral disc disorders with radiculopathy, lumbar region; M47.26 Other spondylosis with radiculopathy, lumbar region; M48.07 Spinal stenosis, lumbosacral region; M51.17 Intervertebral disc disorders with radiculopathy, lumbosacral region; M47.27 Other spondylosis with radiculopathy, lumbosacral region
CPT/HCPCS: 64483; 64484; 99152; J0702; J1100; J2250; J3490

== ENCOUNTER 2024-09-29 07:14 | Outpatient (CLI) | payer MEDICARE, OTHER, SELFPAY ==
[2022-08-27 14:41] VITALS: BMI 33.3
[2024-09-29] VITALS (10 sets, daily range): BP systolic 115–158; BP diastolic 60–91; PULSE 78–88; RESP 13–21; TEMP 36.6; O2SAT 96–98
--- NOTE | 2024-09-29 07:16 | DI.RAD.S_ITS ---
PROCEDURE: PAIN L/S TRANSFORAMINAL INJECT INDICATIONS: RIGHT L4/5 AND L5/S1 TF HILARIA COMPARISON: [facility], , PAIN L/S TRANSFORAMINAL INJECT, 03/15/2024, 10:29. FINDINGS/IMPRESSION: Fluoroscopic spot filming was performed to verify placement of spinal needles at the L4-5 and L5-S1 level(s), as labeled on the films. Appropriate location(s) of the needle tip(s) was confirmed by injection of iodinated contrast. Dictated by: Cornelius Esqueda M.D. on 09/29/2024 at 11:24 Approved by: Cornelius Esqueda M.D. on 09/29/2024 at 11:26
[2024-09-29] MEDS: MIDAZOLAM 2 MG/2 ML VIAL IV (08:20)
[2024-09-29] MEDS: iopamidoL 15 ML VIAL 3 ML INJ (08:29)
[2024-09-29] MEDS: BETAMETHASONE 30 MG/5 ML MDV 12 MG INJ (08:29)
[2024-09-29] MEDS: DEXAMETHASONE 10 MG/ML VIAL 20 MG INJ (08:30)
[2024-09-29] MEDS: BUPIVACAINE 0.25% (PF) VIAL 5 ML INJ (08:30)
--- NOTE | 2024-09-29 08:47 | P.PCN_ITS ---
Date/Time/Diagnoses Date of procedure: 09/29/24 Time of procedure: 08:47 Pre-procedure diagnosis: 1. FORAMINAL STENOSIS WITH LE SYMPTOMS Post-procedure diagnosis: same Procedure Notes Procedure: 1. FLUOROSCOPICALLY GUIDED CONTRAST CONTROLLED TRANSFORAMINAL EPIDURAL STEROID INJECTION - RIGHT L4/5 TFESI Indications: Constance is referred by Dr. Talley for treatment of Foraminal Stenosis with Right LE Symptoms Physician: Jian Moy Total Fluoroscopy time (seconds): 14 Total sedation minutes: 18 Complications: none Procedure in detail & Post-procedure care: FINDINGS Foraminal Nerve Root Compression secondary to disc disease and facet hypertrophy DESCRIPTION OF PROCEDURE Following review of allergy and review of potential side effects and complications, including, but not necessarily limited to, infection, allergic reaction, local tissue breakdown, stroke, temporary or permanent nerve injury, paralysis, and possible , the patient indicated that the patient understood and agreed to proceed. An informed consent document was signed by the patient, witnessed by a nurse, and placed in the patient's chart. Additionally, other treatment options including medications, modalities, and physical therapy were reviewed with the patient. After review of previous anaesthesic history and IV conscious sedation the patient was deemed safe to proceed with today?s procedure with IV conscious sedation as ASA class II designation. Safety time-out was performed to confirm patient ID, procedure to be performed and site of procedure. IV sedation was accomplished with a combination of 2mg of Versed was administered by the RN after DO order, titrated to patient comfort during the course of the procedure while the patient remained responsive to all verbal commands In the prone position following sterile prep and drape of the lumbar region, the right L4/5 posterior neuroforamen was identified fluoroscopically. The skin was anesthetized via a 25-gauge 1.5-inch needle with 1% lidocaine solution. At this point, a 25-gauge 3.5-inch spinal needle was atraumatically introduced and advanced under fluoroscopic guidance through the posterior right L4/5 neuroforamen to approximately the anterior aspect of the canal. Depth was confirmed on lateral view. Following negative aspiration, injection of approximately 1.5cc of Isovue 200 under live fluoroscopy in the AP view c onfirmed excellent flow along the nerve root, into the epidural space without vascular or intrathecal uptake observed Radiological data, including multiple fluoroscopic views of the lumbosacral spi ne, reveal a spinal needle at the right L4/5 posterior neuroforamen. Subsequent views show flow of contrast material flowing superiorly and inferiorly along the nerve root confirming epidural flow. Subsequently, a test dose of 1.5 cc of 1% lidocaine solution was administered and patient was observed for two minutes for signs or symptoms of complications, including abdominal pain, shortness of breath, bilateral upper or lower extremity weakness, nausea and vomiting, prior to steroid injection. At this point, a total of 2cc or 10mg of dexamethasone and 6mg of betamethasone was injected without incident. The procedure tolerated the procedure well without signs or symptoms of complications prior to transfer to the recovery area continued monitoring without incident. The patient was then transferred to the recovery area where they were observed for an appropriate time after the injection. The patient reported a VAS score of 7 prior to the procedure and a post- procedure VAS of 0. POST OP INSTRUCTIONS The patient was provided a Pain Log to continue to record their response to the target-specific procedure prior to follow-up visit with their referring physician. Additionally, specific post-injection care instructions and a contact number to our office were provided if concerns arise regarding possible complications associated with the procedure are suspected.
--- NOTE | 2024-09-29 08:48 | P.PCN_ITS ---
Date/Time/Diagnoses Date of procedure: 09/29/24 Time of procedure: 08:48 Pre-procedure diagnosis: 1. FORAMINAL STENOSIS WITH LE SYMPTOMS Post-procedure diagnosis: same Procedure Notes Procedure: 1. FLUOROSCOPICALLY GUIDED CONTRAST CONTROLLED TRANSFORAMINAL EPIDURAL STEROID INJECTION - RIGHT L3/4 TFESI Indications: Constance is referred by Dr. Talley for treatment of Foraminal Stenosis with right LE Symptoms Physician: Jian Moy Total Fluoroscopy time (seconds): 14 Total sedation minutes: 18 Complications: none Procedure in detail & Post-procedure care: FINDINGS Foraminal Nerve Root Compression secondary to disc disease and facet hypertrophy DESCRIPTION OF PROCEDURE Following review of allergy and review of potential side effects and complications, including, but not necessarily limited to, infection, allergic reaction, local tissue breakdown, stroke, temporary or permanent nerve injury, paralysis, and possible , the patient indicated that the patient understood and agreed to proceed. An informed consent document was signed by the patient, witnessed by a nurse, and placed in the patient's chart. Additionally, other treatment options including medications, modalities, and physical therapy were reviewed with the patient. After review of previous anaesthesic history and IV conscious sedation the patient was deemed safe to proceed with today?s procedure with IV conscious sedation as ASA class II designation. Safety time-out was performed to confirm patient ID, procedure to be performed and site of procedure. IV sedation was accomplished with a combination of 2mg of Versed was administered by the RN after DO order, titrated to patient comfort during the course of the procedure while the patient remained responsive to all verbal commands In the prone position following sterile prep and drape of the lumbar region, the right L3/4 posterior neuroforamen was identified fluoroscopically. The skin was anesthetized via a 25-gauge 1.5-inch needle with 1% lidocaine solution. At this point, a 25-gauge 3.5-inch spinal needle was atraumatically introduced and advanced under fluoroscopic guidance through the posterior right L3/4 neuroforamen to approximately the anterior aspect of the canal. Depth was confirmed on lateral view. Following negative aspiration, injection of approximately 1.5 cc of Isovue 200 under live fluoroscopy in the AP view con firmed excellent flow along the nerve root, into the epidural space without vascular or intrathecal uptake observed Radiological data, including multiple fluoroscopic views of the lumbosacral spine, reveal a spinal needle at the right L3/4 posterior neuroforamen. Subsequent views show flow of contrast material flowing superiorly and inferiorly along the nerve root confirming epidural flow. Subsequently, a test dose of 1.5 cc of 1% lidocaine solution was administered and patient was observed for two minutes for signs or symptoms of complications, including abdominal pain, shortness of breath, bilateral upper or lower extremity weakness, nausea and vomiting, prior to steroid injection. At this point, a total of 2cc or 10mg of dexamethasone and 6mg of betamethasone was injected without incident. The patient tolerated the procedure well without signs or symptoms of complications prior to transfer to the recovery area continued monitoring without incident. The patient was then transferred to the recovery area where they were observed for an appropriate time after the injection. The patient reported a VAS score of 7 prior to the procedure and a post-procedure VAS of 0. POST OP INSTRUCTIONS The patient was provided a Pain Log to continue to record their response to the target-specific procedure prior to follow-up visit with their referring ph ysician. Additionally, specific post-injection care instructions and a contact number to our office were provided if concerns arise regarding possible complications associated with the procedure are suspected.
== END 2024-09-29 09:22 | disposition home or self-care (01) ==
LOC: RAD 07:15
PROVIDERS: Family Provider Family Medicine; PCP Family Medicine; Referring Provider Physical Medicine & Rehabilitation; Visit Provider Physical Medicine & Rehabilitation
DX: M48.061 Spinal stenosis, lumbar region without neurogenic claudication; M51.16 Intervertebral disc disorders with radiculopathy, lumbar region; M47.26 Other spondylosis with radiculopathy, lumbar region
CPT/HCPCS: 64483; 64484; 99152; J0702; J1100; J2250; J3490

== ENCOUNTER 2024-12-27 14:21 | Outpatient (CLI) | payer MEDICARE, OTHER, SELFPAY ==
[2022-08-27 14:41] VITALS: BMI 33.3
[2024-12-27] VITALS (9 sets, daily range): BP systolic 115–146; BP diastolic 60–86; PULSE 81–89; RESP 14–21; TEMP 37.5; O2SAT 96–100
[2024-12-27] MEDS: MIDAZOLAM 2 MG/2 ML VIAL IV (15:38)
[2024-12-27] MEDS: BETAMETHASONE 30 MG/5 ML MDV 12 MG INJ (15:43)
[2024-12-27] MEDS: DEXAMETHASONE 10 MG/ML VIAL 20 MG INJ (15:43)
[2024-12-27] MEDS: BUPIVACAINE 0.25% (PF) VIAL 2 ML INJ (15:43)
[2024-12-27] MEDS: iopamidoL 15 ML VIAL 3 ML INJ (15:43)
[2024-12-27] MEDS: BETAMETHASONE 30 MG/5 ML MDV 6 MG INJ (15:44)
--- NOTE | 2024-12-27 16:02 | P.PCN_ITS ---
Date/Time/Diagnoses Date of procedure: 12/27/24 Time of procedure: 16:02 Pre-procedure diagnosis: 1. FORAMINAL STENOSIS WITH LE SYMPTOMS Post-procedure diagnosis: same Procedure Notes Procedure: 1. FLUOROSCOPICALLY GUIDED CONTRAST CONTROLLED TRANSFORAMINAL EPIDURAL STEROID INJECTION - RIGHT L4/5 TFESI Indications: Misael is referred by Dr. Talley for treatment of Foraminal Stenosis with Right LE Symptoms Physician: Jian Moy Total Fluoroscopy time (seconds): 13 Total sedation minutes: 17 Complications: none Procedure in detail & Post-procedure care: FINDINGS Foraminal Nerve Root Compression secondary to disc disease and facet hypertrophy DESCRIPTION OF PROCEDURE Following review of allergy and review of potential side effects and complications, including, but not necessarily limited to, infection, allergic reaction, local tissue breakdown, stroke, temporary or permanent nerve injury, paralysis, and possible , the patient indicated that the patient understood and agreed to proceed. An informed consent document was signed by the patient, witnessed by a nurse, and placed in the patient's chart. Additionally, other treatment options including medications, modalities, and physical therapy were reviewed with the patient. After review of previous anaesthesic history and IV conscious sedation the patient was deemed safe to proceed with today?s procedure with IV conscious sedation as ASA class II designation. Safety time-out was performed to confirm patient ID, procedure to be performed and site of procedure. IV sedation was accomplished with a combination of 2mg of Versed was administered by the RN after DO order, titrated to patient comfort during the course of the procedure while the patient remained responsive to all verbal commands In the prone position following sterile prep and drape of the lumbar region, the right L4/5 posterior neuroforamen was identified fluoroscopically. The skin was anesthetized via a 25-gauge 1.5-inch needle with 1% lidocaine solution. At this point, a 22-gauge 5-inch spinal needle was atraumatically introduced and advanced under fluoroscopic guidance through the posterior right L4/5 neuroforamen to approximately the anterior aspect of the canal. Depth was confirmed on lateral view. Following negative aspiration, injection of approximately 1.5cc of Isovue 200 under live fluoroscopy in the AP view confirmed excellent flow along the nerve root, into the epidural space without vascular or intrathecal uptake observed Radiological data, including multiple fluoroscopic views of the lumbosacral spine, reveal a spinal needle at the right L4/5 posterior neuroforamen. Subsequent views show flow of contrast material flowing superiorly and inferiorly along the nerve root confirming epidural flow. Subsequently, a test dose of 1.5 cc of 1% lidocaine solution was administered and patient was observed for two minutes for signs or symptoms of complications, including abdominal pain, shortness of breath, bilateral upper or lower extremity weakness, nausea and vomiting, prior to steroid injection. At this point, a total of 2cc or 10mg of dexamethasone and 6mg of betamethasone was injected without incident. The procedure tolerated the procedure well without signs or symptoms of complications prior to transfer to the recovery area continued monitoring without incident. The patient was then transferred to the recovery area where they were observed for an appropriate time after the injection. The patient reported a VAS score of 7 prior to the procedure and a post- procedure VAS of 0. POST OP INSTRUCTIONS The patient was provided a Pain Log to continue to record their response to the target-specific procedure prior to follow-up visit with their referring physician. Additionally, specific post-injection care instructions and a contact number to our office were provided if concerns arise regarding possible complications associated with the procedure are suspected.
--- NOTE | 2024-12-27 16:03 | P.PCN_ITS ---
Date/Time/Diagnoses Date of procedure: 12/27/24 Time of procedure: 16:03 Pre-procedure diagnosis: FORAMINAL STENOSIS WITH LE SYMPTOMS Post-procedure diagnosis: same Procedure Notes Procedure: 1. FLUOROSCOPICALLY GUIDED CONTRAST CONTROLLED TRANSFORAMINAL EPIDURAL STEROID INJECTION - RIGHT L5/S1 TFESI Indications: Misael is referred by Dr. Talley for treatment of Foraminal Stenosis with Right LE Symptoms Physician: Jian Moy Total Fluoroscopy time (seconds): 13 Total sedation minutes: 17 Complications: none Procedure in detail & Post-procedure care: FINDINGS Foraminal Nerve Root Compression secondary to disc disease and facet hypertrophy DESCRIPTION OF PROCEDURE Following review of allergy and review of potential side effects and complications, including, but not necessarily limited to, infection, allergic reaction, local tissue breakdown, stroke, temporary or permanent nerve injury, paralysis, and possible , the patient indicated that the patient understood and agreed to proceed. An informed consent document was signed by the patient, witnessed by a nurse, and placed in the patient's chart. Additionally, other treatment options including medications, modalities, and physical therapy were reviewed with the patient. After review of previous anaesthesic history and IV conscious sedation the patient was deemed safe to proceed with today?s procedure with IV conscious sedation as ASA class II designation. Safety time-out was performed to confirm patient ID, procedure to be performed and site of procedure. IV sedation was accomplished with a combination of 2mg of Versed was administered by the RN after DO order, titrated to patient comfort during the course of the procedure while the patient remained responsive to all verbal commands In the prone position following sterile prep and drape of the lumbar region, the right L5/S1 posterior neuroforamen was identified fluoroscopically. The skin was anesthetized via a 25-gauge 1.5-inch needle with 1% lidocaine solution. At this point, a 22-gauge 5-inch spinal needle was atraumatically introduced and advanced under fluoroscopic guidance through the posterior right L5/S1 neuroforamen to approximately the anterior aspect of the canal. Depth was confirmed on lateral view. Following negative aspiration, injection of approximately 1.5cc of Isovue 200 under live fluoroscopy in the AP view confirmed excellent flow along the nerve root, into the epidural space without vascular or intrathecal uptake observed Radiological data, including multiple fluoroscopic views of the lumbosacral spine, reveal a spinal needle at the right L5/S1 posterior neuroforamen. Subsequent views show flow of contrast material flowing superiorly and inferiorly along the nerve root confirming epidural flow. Subsequently, a test dose of 1.5 cc of 1% lidocaine solution was administered and patient was observed for two minutes for signs or symptoms of complications, including abdominal pain, shortness of breath, bilateral upper or lower extremity weakness, nausea and vomiting, prior to steroid injection. At this point, a total of 2cc or 10mg of dexamethasone and 6mg of betamethasone was injected without incident. The procedure tolerated the procedure well without signs or symptoms of complications prior to transfer to the recovery area continued monitoring without incident. The patient was then transferred to the recovery area where they were observed for an appropriate time after the injection. The patient reported a VAS score of 7 prior to the procedure and a post- procedure VAS of 0. POST OP INSTRUCTIONS The patient was provided a Pain Log to continue to record their response to the target-specific procedure prior to follow-up visit with their referring physician. Additionally, specific post-injection care instructions and a contact number to our office were provided if concerns arise regarding possible complications associated with the procedure are suspected.
== END 2024-12-27 16:10 | disposition home or self-care (01) ==
PROVIDERS: Family Provider Family Medicine; PCP Family Medicine; Referring Provider Physical Medicine & Rehabilitation; Visit Provider Physical Medicine & Rehabilitation
DX: M48.061 Spinal stenosis, lumbar region without neurogenic claudication (principal); M48.07 Spinal stenosis, lumbosacral region; M51.16 Intervertebral disc disorders with radiculopathy, lumbar region; M51.17 Intervertebral disc disorders with radiculopathy, lumbosacral region; M47.26 Other spondylosis with radiculopathy, lumbar region; M47.27 Other spondylosis with radiculopathy, lumbosacral region
CPT/HCPCS: 64483; 64484; 99152; J0702; J1100; J2250; J3490

== ENCOUNTER 2025-08-15 13:48 | Outpatient (CLI) | payer MEDICARE, OTHER, SELFPAY ==
[2022-08-27 14:41] VITALS: BMI 33.3
[2025-08-15] VITALS (7 sets, daily range): BP systolic 144–189; BP diastolic 75–89; PULSE 86–90; RESP 15–20; TEMP 36.9; O2SAT 98–100
[2025-08-15] MEDS: MIDAZOLAM 2 MG/2 ML VIAL IV (15:25)
[2025-08-15] MEDS: BETAMETHASONE 30 MG/5 ML MDV 12 MG INJ (15:30)
[2025-08-15] MEDS: BETAMETHASONE 30 MG/5 ML MDV 6 MG INJ (15:31)
--- NOTE | 2025-08-15 15:46 | P.PCN_ITS ---
Date/Time/Diagnoses Date of procedure: 08/15/25 Time of procedure: 15:46 Pre-procedure diagnosis: FORAMINAL STENOSIS WITH LE SYMPTOMS Post-procedure diagnosis: same Procedure Notes Procedure: 1. FLUOROSCOPICALLY GUIDED CONTRAST CONTROLLED TRANSFORAMINAL EPIDURAL STEROID INJECTION - RIGHT L5/S1 TFESI Indications: Primitivo is referred by Dr. Talley for treatment of Foraminal Stenosis with Right LE Symptoms Physician: Jian Moy Total Fluoroscopy time (seconds): 9 Total sedation minutes: 13 Complications: none Procedure in detail & Post-procedure care: FINDINGS Foraminal Nerve Root Compression secondary to disc disease and facet hypertrophy DESCRIPTION OF PROCEDURE Following review of allergy and review of potential side effects and complications, including, but not necessarily limited to, infection, allergic r eaction, local tissue breakdown, stroke, temporary or permanent nerve injury, paralysis, and possible , the patient indicated that the patient understood and agreed to proceed. An informed consent document was signed by the patient, witnessed by a nurse, and placed in the patient's chart. Additionally, other treatment options including medications, modalities, and physical therapy were reviewed with the patient. After review of previous anaesthesic history and IV conscious sedation the patient was deemed safe to proceed with today?s procedure with IV conscious sedation as ASA class II designation. Safety time-out was performed to confirm patient ID, procedure to be performed and site of procedure. IV sedation was accomplished with a combination of 2mg of Versed was administered by the RN after DO order, titrated to patient comfort during the course of the procedure while the patient remained responsive to all verbal commands In the prone position following sterile prep and drape of the lumbar region, the right L5/S1 posterior neuroforamen was identified fluoroscopically. The skin was anesthetized via a 25-gauge 1.5-inch needle with 1% lidocaine solution. At this point, a 25-gauge 3.5-inch spinal needle was atraumatically introduced and advanced under fluoroscopic guidance through the posterior right L5/S1 neuroforamen to approximately the anterior aspect of the canal. Depth was confirmed on lateral view. Following negative aspiration, injection of approximately 1.5cc of Isovue 200 under live fluoroscopy in the AP view confirmed excellent flow along the nerve root, into the epidural space without vascular or intrathecal uptake observed Radiological data, including multiple fluoroscopic views of the lumbosacral spine, reveal a spinal needle at the right L5/S1 posterior neuroforamen. Subsequent views show flow of contrast material flowing superiorly and inferiorly along the nerve root confirming epidural flow. Subsequently, a test dose of 1.5cc of 0.25% marcaine solution was administered and patient was observed for two minutes for signs or symptoms of complications, including abdominal pain, shortness of breath, bilateral upper or lower extr emity weakness, nausea and vomiting, prior to steroid injection. At this point, a total of 3cc or 10mg of dexamethasone and 12mg of betamethasone was injected without incident. The procedure tolerated the procedure well without signs or symptoms of complications prior to transfer to the recovery area continued monitoring without incident. The patient was then transferred to the recovery area where they were observed for an appropriate time after the injection. The patient reported a VAS score of 7 prior to the procedure and a post- procedure VAS of 0. POST OP INSTRUCTIONS The patient was provided a Pain Log to continue to record their response to the target-specific procedure prior to follow-up visit with their referring physician. Additionally, specific post-injection care instructions and a contact number to our office were provided if concerns arise regarding possible complications associated with the procedure are suspected.
--- NOTE | 2025-08-15 15:47 | P.PCN_ITS ---
Date/Time/Diagnoses Date of procedure: 08/15/25 Time of procedure: 15:47 Pre-procedure diagnosis: 1. FORAMINAL STENOSIS WITH LE SYMPTOMS Post-procedure diagnosis: same Procedure Notes Procedure: 1. FLUOROSCOPICALLY GUIDED CONTRAST CONTROLLED TRANSFORAMINAL EPIDURAL STEROID INJECTION - RIGHT L4/5 TFESI Indications: Primitivo is referred by for treatment of Foraminal Stenosis with Right LE Symptoms Physician: Jian Moy Total Fluoroscopy time (seconds): 9 Total sedation minutes: 13 Complications: none Procedure in detail & Post-procedure care: FINDINGS Foraminal Nerve Root Compression secondary to disc disease and facet hypertrophy DESCRIPTION OF PROCEDURE Following review of allergy and review of potential side effects and complications, including, but not necessarily limited to, infection, allergic reaction, local tissue breakdown, stroke, temporary or permanent nerve injury, paralysis, and possible , the patient indicated that the patient understood and agreed to proceed. An informed consent document was signed by the patient, witnessed by a nurse, and placed in the patient's chart. Additionally, other treatment options including medications, modalities, and physical therapy were reviewed with the patient. After review of previous anaesthesic history and IV conscious sedation the patient was deemed safe to proceed with today?s procedure with IV conscious sedation as ASA class II designation. Safety time-out was performed to confirm patient ID, procedure to be performed and site of procedure. IV sedation was accomplished with a combination of 2mg of Versed was administered by the RN after DO order, titrated to patient comfort during the course of the procedure while the patient remained responsive to all verbal commands In the prone position following sterile prep and drape of the lumbar region, the right L4/5 posterior neuroforamen was identified fluoroscopically. The skin was anesthetized via a 25-gauge 1.5-inch needle with 1% lidocaine solution. At this point, a 25-gauge 3.5-inch spinal needle was atraumatically introduced and advanced under fluoroscopic guidance through the posterior right L4/5 neuroforamen to approximately the anterior aspect of the canal. Depth was confirmed on lateral view. Following negative aspiration, injection of approximately 1.5cc of Isovue 200 under live fluoroscopy in the AP view co nfirmed excellent flow along the nerve root, into the epidural space without vascular or intrathecal uptake observed Radiological data, including multiple fluoroscopic views of the lumbosacral spin e, reveal a spinal needle at the right L4/5 posterior neuroforamen. Subsequent views show flow of contrast material flowing superiorly and inferiorly along the nerve root confirming epidural flow. Subsequently, a test dose of 1.5 cc of 0.25%marcaine solution was administered and patient was observed for two minutes for signs or symptoms of complications, including abdominal pain, shortness of breath, bilateral upper or lower extremity weakness, nausea and vomiting, prior to steroid injection. At this point, a total of 3cc or 10mg of dexamethasone and 12mg of betamethasone was injected without incident. The procedure tolerated the procedure well without signs or symptoms of complications prior to transfer to the recovery area continued monitoring without incident. The patient was then transferred to the recovery area where they were observed for an appropriate time after the injection. The patient reported a VAS score of 7 prior to the procedure and a post- procedure VAS of 0. POST OP INSTRUCTIONS The patient was provided a Pain Log to continue to record their response to the target-specific procedure prior to follow-up visit with their referring physician. Additionally, specific post-injection care instructions and a contact number to our office were provided if concerns arise regarding possible complications associated with the procedure are suspected.
== END 2025-08-15 16:02 | disposition home or self-care (01) ==
PROVIDERS: PCP Family Medicine; Referring Provider Physical Medicine & Rehabilitation; Visit Provider Physical Medicine & Rehabilitation
DX: M48.061 Spinal stenosis, lumbar region without neurogenic claudication (principal); M48.07 Spinal stenosis, lumbosacral region; M51.16 Intervertebral disc disorders with radiculopathy, lumbar region; M51.17 Intervertebral disc disorders with radiculopathy, lumbosacral region; M47.26 Other spondylosis with radiculopathy, lumbar region; M47.27 Other spondylosis with radiculopathy, lumbosacral region
CPT/HCPCS: 64483; 64484; 99152; J0702; J1100; J2250